=== PATIENT | female | born 1995 | race Two or more races ===

== ENCOUNTER 2020-10-26 12:58 | Emergency (ER) | payer OTHER, SELFPAY ==
[2020-10-26 14:01] VITALS: BP 159/112; PULSE 65; RESP 14; TEMP 36.8; O2SAT 99; BMI 45.2
--- NOTE | 2020-10-26 14:09 | ED_ITS ---
HPI - General Adult General Chief complaint: General Medical Stated complaint: lt arm & neck pain, numbness Time Seen by Provider: 10/26/20 13:44 Source: patient Mode of arrival: ambulatory Limitations: no limitations History of Present Illness HPI narrative: A 25-year-old female with reported history of ovarian CA she reports she was diagnosed with 9 years ago underwent chemotherapy subsequently had metastasis she was on hospice given that there was terminal diagnosis and it was elected to stop chemotherapy there was metastasis to the liver, question long and question lymph node she is being followed by Oncology at [facility]. She has been off chemotherapy for a year and a half she also has a history of asthma who presents today ambulatory with complaint of left-sided neck pain with sensation of lymph node swelling and pain radiation to the left arm. States she called her primary care doctor today being Wednesday she was advised to come to the emergency room. States she has had pain discomfort ongoing for the past 5 days and intermittently having radiation down the left arm. Again no fever or U RI symptoms. She does report that the lymph node swelling does cause her to have difficulty with swelling/pain. Onset (ago): day(s) (5 days ) Location: neck Related Data Previous Rx's Medication Instructions Recorded cyclobenzaprine 5 mg PO TID PRN #20 tab 10/26/20 doxycycline monohydrate 100 mg PO BID 10 Days #20 cap 10/26/20 ibuprofen 800 mg PO Q8H PRN #30 tab 10/26/20 Allergies Allergy/AdvReac Type Severity Reaction Status Date / Time latex [LATEX] Allergy Intermediate HIVES Unverified 07/11/20 16:39 vancomycin [VANCOMYCIN] Allergy Intermediate HIVES Unverified 07/11/20 16:39 Review of Systems Review of Systems: Constitutional: No Weight loss, No Fever, No Chills, No Night Sweats, No Fatigue, No Malaise ENT/Mouth: No Hearing loss, No Ear Pain, No Nasal Congestion, No Sinus Pain, No Hoarseness, No sore throat, No Rhinorrhea, No Swallowing Difficulty Eyes: No Eye Pain, No Swelling, No Redness, No Foreign Body, No Discharge, No Vision Changes Cardiovascular: No Chest Pain, No SOB, No Dyspnea on Exertion, No Orthopnea, No Edema, No Palpitations Respiratory: No Cough, No Sputum, No Wheezing, No Smoke Exposure, No Dyspnea Gastrointestinal: No Nausea, No Vomiting, No Diarrhea, No Constipation, No abdominal Pain, No Hematochezia, No Melena Genitourinary: no irregular bleeding, No Dysuria, No Urinary Frequency, No Hematuria, No Urinary Incontinence, No Urgency, No Flank Pain Musculoskeletal: No joint pain, No Myalgias, No Joint Swelling Skin: No Skin Lesions, No rash Neuro: No Weakness, No Numbness, No Loss of Consciousness, No Dizziness, No Headache Psych: No Social Issues Heme/Lymph: No Bruising, No Bleeding Endocrine: No Polyuria, No Polydipsia, No Temperature Intolerance [facility] Past Medical History Medical History Asthma Ovarian cancer Social History Social History Smoking Status: Never smoker Use of substances other than those prescribed or required for medical reasons: No Advance Directives: No Advance Directives Information Provided: No Physical Exam Vital Signs: Vital Signs: Last Vital Signs Temp 99.2 F 10/26/20 14:34 Pulse 60 10/26/20 14:34 Resp 16 10/26/20 14:34 BP 146/91 H 10/26/20 14:34 Pulse Ox 99 10/26/20 14:34 Body Mass Index 45.2 Reviewed Const: General: cooperative and healthy appearing; No acute distress or into xicated appearing Nutritional Appearance: average body habitus Orientation/consciousness: patient oriented x3 HENMT: Head: Yes normal to inspection Ears: hearing grossly normal bilaterally Eyes: General: appearance normal, both eyes and all related structures Visual Patel: normal visual patel by confrontation Neck: Other: Mildly large anterior cervical node on the left side [place] the size of a pea. Neck: Yes normal visual inspection, No positive Brudzinski's sign, No positive Kernig's sign and No tender Thyroid: Thyroid normal Chest: Chest palpation & inspection: normal inspection of the chest Resp: Effort & Inspection: normal respiratory effort Auscultation: clear to auscultation bilaterally Cardio: Jugular venous distension: no JVD Rhythm: regular rhythm Heart sounds: S1 normal heart sound present and S2 normal heart sound present GI: Inspection: Yes normal to inspection Percussion: Yes normal to percussion Auscultation: normal bowel sounds : General: Yes no CVA tenderness Back/Spine/Pelvis: Back: no CVA tenderness Skin: General skin exam: no rashes or lesions noted Neuro: General: patient oriented x3 Extrem: General: Yes normal to inspection Course Course Course Narrative: Somewhat poor historian will request records from [facility] regarding her CA history states diagnosed with terminal ovarian CA no longer on chemo clinically nontoxic appearing. Well developed for age. Will check labs and CT soft tissue of cervical spine and chest rule out infectious/metastasis. Reevaluation(s) Reevaluation #1: Labs overall stable CT findings as noted. Will give her short course doxycycline she does have appointment coming up with her oncology team on the . Copies of her workup and CT scan were provided to her to take her for follow-up. Medical Decision Making Lab Data Result diagrams: 10/26/20 15:33 10/26/20 15:33 Labs: Lab Results 10/26/20 10/26/20 10/26/20 Range/Units 15:33 15:33 15:33 WBC 6.4 (4.8-10.8) X10*3/uL RBC 4.74 (4.20-5.50) X10*6/uL Hgb 12.9 (12.0-16.0) g/dl Hct 40.1 (37-47) % MCV 84.6 (80-98) fL MCH 27.2 (27.0-33.0) pg MCHC 32.2 (31.0-35.0) g/dl RDW 13.1 (11.0-16.0) % Plt Count 371 (160-400) X10*3/uL MPV 9.3 L (9.4-12.3) fL Immature Gran % (Auto) 0.2 (0.0-0.4) % Neut % (Auto) 49.9 (45-73) % Lymph % (Auto) 38.5 (20-40) % [place] % (Auto) 7.4 (2-11) % Eos % (Auto) 3.8 (0-4) % Baso % (Auto) 0.2 (0-2) % Lymph # (Auto) 2.5 (1.2-4.9) X10*3/uL [place] # (Auto) 0.5 (0.1-1.2) X10*3/uL Eos # (Auto) 0.2 (0.0-0.4) X10*3/uL Baso # (Auto) 0.0 (0.0-0.2) X10*3/uL Abs Immat Gran (auto) 0.01 (0.00-0.03) X10*3/uL Absolute Neuts (auto) 3.2 (2.0-8.3) X10*3/uL Absolute Nucleated RBC 0.000 (0.0-0.012) X10*3/uL Nucleated RBC % (auto) 0.0 (0.0-0.2) /100WBC PT 12.2 (10.8-13.0) SEC INR 1.0 (0.9-1.1) APTT 36.5 (24.1-38.0) SEC Sodium 139 (135-145) mmol/L Potassium 4.4 (3.3-5.1) mmol/l Chloride 105 (96-108) mmol/L Carbon Dioxide 28 (22-29) mmol/L Anion Gap 10 L (12-20) BUN 13 (9-16) mg/dL Creatinine 0.62 (0.5-1.4) mg/dL Estim Creat Clear Calc 184.5 Estimated GFR > 60 Random Glucose 87 (60-115) mg/dL Calcium 8.9 (8.4-10.2) mg/dL Total Bilirubin 0.6 (0.0-1.0) mg/dL AST 14 (5-31) U/L ALT 11 (0-31) U/L Alkaline Phosphatase 50 (39-117) U/L Total Protein 6.7 (6.5-8.0) g/dL Albumin 4.0 (3.5-5.0) g/dL Urine Color Urine Appearance Urine pH (5.0-8.0) Ur Specific [place] (1.005-1.025) Urine Protein (NEG-TRACE) MG/DL Urine Glucose (UA) (NEG) MG/DL Urine Ketones (NEG) MG/DL Urine Blood (NEG) Urine Nitrite (NEG) Ur Leukocyte Esterase (NEG) Urine RBC (0) /HPF Urine WBC (0-4) /HPF Ur Squamous Epith Cells /LPF Urine Bacteria /LPF Urine Test (NEGATIVE) Coronavirus (PCR) (Negative) Influenza Type A (PCR) (Negative) Influenza Type B (PCR) (Negative) RSV RNA Qual (PCR) (Negative) 01/02/21 01/02/21 Range/Units 15:33 17:48 WBC (4.8-10.8) X10*3/uL RBC (4.20-5.50) X10*6/uL Hgb (12.0-16.0) g/dl Hct (37-47) % MCV (80-98) fL MCH (27.0-33.0) pg MCHC (31.0-35.0) g/dl RDW (11.0-16.0) % Plt Count (160-400) X10*3/uL MPV (9.4-12.3) fL Immature Gran % (Auto) (0.0-0.4) % Neut % (Auto) (45-73) % Lymph % (Auto) (20-40) % [place] % (Auto) (2-11) % Eos % (Auto) (0-4) % Baso % (Auto) (0-2) % Lymph # (Auto) (1.2-4.9) X10*3/uL [place] # (Auto) (0.1-1.2) X10*3/uL Eos # (Auto) (0.0-0.4) X10*3/uL Baso # (Auto) (0.0-0.2) X10*3/uL Abs Immat Gran (auto) (0.00-0.03) X10*3/uL Absolute Neuts (auto) (2.0-8.3) X10*3/uL Absolute Nucleated RBC (0.0-0.012) X10*3/uL Nucleated RBC % (auto) (0.0-0.2) /100WBC PT (10.8-13.0) SEC INR (0.9-1.1) APTT (24.1-38.0) SEC Sodium (135-145) mmol/L Potassium (3.3-5.1) mmol/l Chloride (96-108) mmol/L Carbon Dioxide (22-29) mmol/L Anion Gap (12-20) BUN (9-16) mg/dL Creatinine (0.5-1.4) mg/dL Estim Creat Clear Calc Estimated GFR Random Glucose (60-115) mg/dL Calcium (8.4-10.2) mg/dL Total Bilirubin (0.0-1.0) mg/dL AST (5-31) U/L ALT (0-31) U/L Alkaline Phosphatase (39-117) U/L Total Protein (6.5-8.0) g/dL Albumin (3.5-5.0) g/dL Urine Color YELLOW Urine Appearance CLEAR Urine pH 6.0 (5.0-8.0) Ur Specific [place] 1.025 (1.005-1.025) Urine Protein NEG (NEG-TRACE) MG/DL Urine Glucose (UA) NEG (NEG) MG/DL Urine Ketones NEG (NEG) MG/DL Urine Blood TRACE (NEG) Urine Nitrite NEG (NEG) Ur Leukocyte Esterase NEG (NEG) Urine RBC 0-2 (0) /HPF Urine WBC 0-2 (0-4) /HPF Ur Squamous Epith Cells TRACE /LPF Urine Bacteria NONE /LPF Urine Test NEGATIVE (NEGATIVE) Coronavirus (PCR) NEGATIVE (Negative) Influenza Type A (PCR) NEGATIVE (Negative) Influenza Type B (PCR) NEGATIVE (Negative) RSV RNA Qual (PCR) NEGATIVE (Negative) Discharge Plan Discharge Clinical Impression: Cervical lymphadenopathy, Abnormal finding on CT scan Patient Disposition: Home, Self-Care Instructions: Lymphadenopathy (ED) Additional Instructions: Take medication as prescribed Follow-up with your cancer team at [place] as planned/scheduled on the Return if any concerns or worsening symptoms I have given a copy of your CT scans results of your cervical spine/chest to take with you to your appointment Return if any concerns or worsening symptoms Thank you Prescriptions: New cyclobenzaprine 10 mg tablet 5 mg PO TID PRN (Reason: muscle spasm) Qty: 20 RF: 0 ibuprofen 800 mg tablet 800 mg PO Q8H PRN (Reason: pain) Qty: 30 RF: 0 doxycycline monohydrate 100 mg capsule 100 mg PO BID 10 Days Qty: 20 RF: 0 Referrals: Santiago Singletary PA-C [Primary Care Provider] - 1 week (Your oncology team in [place] on November 07) Interventions: ED Discharge Assessment Last Done: 10/26/20 18:00 Discharge Date/Time: 10/26/20 18:00 Print Language: Croatian
--- NOTE | 2020-10-26 14:15 | CT_ITS ---
EXAMINATION: CT SOFT TISSUE NECK WITH CONTRAST CT CHEST WITH CONTRAST CLINICAL INFORMATION: Stage IV ovarian cancer. Neck/lymph node swelling. Pain. COMPARISON: Chest radiograph dated 04/13/2017. TECHNIQUE: Contiguous axial CT images of the neck soft tissues as well as the chest were obtained following the administration of 80 mL Omnipaque 350 IV contrast. Sagittal and coronal reformats were provided and reviewed. This CT examination was performed using dose optimization techniques as appropriate, variously including the following: *Automated exposure control *Adjustment of mA and/or kV according to patient size (this includes techniques or standardized protocols for targeted exams where dose is matched to indication/reason for exam; i.e. extremities or head) *Use of iterative reconstruction technique DOSE: 1397 mGy-cm. FINDINGS: CT NECK: There are prominent bilateral cervical lymph nodes, the largest of which are level II/III lymph nodes measuring 1.9 x 1.2 cm on the right (see axial image 48/128) and level IV on the left measuring up to 2 x 1.5 cm (axial image 44/128). No additional soft tissue mass or fluid collection. The parotid glands are homogeneous in attenuation. The submandibular glands are normal. No contour abnormality or pathologic enhancement is seen within the oral cavity or pharyngeal mucosal space. The laryngeal structures are normal. The parapharyngeal fat is preserved. The carotid sheath vasculature opacify normally. No extramucosal soft tissue mass or fluid collection is seen. No retropharyngeal fluid collection is seen. The thyroid gland is normal. The superior mediastinum is unremarkable. The lung apices are clear. The mastoid air cells and visualized portions of the paranasal sinuses are well aerated. The temporomandibular joints are normal. No periapical disease is identified. No osseous abnormalities are seen. The imaged portions of the brain parenchyma are unremarkable. CT CHEST: [employer] Head: Unremarkable. Lungs: Focal reticulonodular density along the inferior aspect of the left major fissure measuring 0.6 cm. No additional pulmonary nodule, mass, or airspace consolidation. Pleura: No pleural effusion or pneumothorax. No pleural mass or thickening. Mediastinum: No cardiomegaly. No significant pericardial effusion. No thoracic aortic dilatation or dissection. No significant mediastinal or hilar lymphadenopathy. Soft tissue within the anterosuperior mediastinum, likely representing residual thymus. Chest Wall/Axilla: No lymphadenopathy. Thyroid: Unremarkable UPPER ABDOMEN: Within the posterior aspect of the right hepatic lobe there is a 3.3 x 5.3 cm predominantly fat density lesion with central areas of soft tissue density. 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 Differential diagnosis includes hepatocellular carcinoma and hepatic lipoma. OSSEOUS STRUCTURES: No lytic or blastic osseous lesion. CT/CT soft tissue neck w con IMPRESSION: CT NECK: 1. Prominent bilateral cervical lymph nodes. 2. No additional soft tissue mass or fluid collection. CT CHEST: 1. No significant pulmonary nodule, mass, or airspace consolidation. 2. No mediastinal, hilar, or axillary lymphadenopathy. 3. Predominantly fat-containing lesion within the posterior aspect of the right hepatic lobe measuring up to 5.3 cm. 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 Differential diagnosis includes hepatocellular carcinoma and hepatic lipoma.
[2020-10-26 14:34] VITALS: BP 146/91; PULSE 60; RESP 16; TEMP 37.3; O2SAT 99
[2020-10-26] MEDS: Cyclobenzaprine HCl 5 MG TABLET PO (14:50)
[2020-10-26] MEDS: Lidocaine 4 % Patch ADH..PATCH 1 PATCH TRANSDERMA (14:51)
[2020-10-26 15:43] LABS: Glucose Urine UA NEG (NEG); Leukocyte Esterase Urine NEG (NEG); MANUAL DIFF FLAG NO; Nitrite Urine NEG (NEG); Specific Gravity - Urine 1.025 (1.005-1.025); Urine Blood TRACE (NEG); Urine Ketones NEG (NEG); Urine Protein NEG (NEG-TRACE)
[2020-10-26 15:46] LABS: Basophils Percent Auto 0.2 % (0-2); Eosinophils Absolute Auto 0.2 X10*3/uL (0.0-0.4); Eosinophils Percent Auto 3.8 % (0-4); Hematocrit 40.1 % (37-47); Hemoglobin 12.9 g/dl (12.0-16.0); Imm Gran Abs Auto 0.01 X10*3/uL (0.00-0.03); Imm Gran Pct Auto 0.2 % (0.0-0.4); Lymphocytes Absolute Auto 2.5 X10*3/uL (1.2-4.9); Lymphocytes Percent Auto 38.5 % (20-40); Mean Corpuscular HGB Conc 32.2 g/dl (31.0-35.0); Mean Corpuscular Hemoglobin 27.2 pg (27.0-33.0); Mean Corpuscular Volume 84.6 fL (80-98); Mean Platelet Volume 9.3 fL (9.4-12.3); Monocytes Absolute Auto 0.5 X10*3/uL (0.1-1.2); Monocytes Percent Auto 7.4 % (2-11); Neutrophils Absolute Auto 3.2 X10*3/uL (2.0-8.3); Neutrophils Percent Auto 49.9 % (45-73); Platelet Count 371 X10*3/uL (160-400); Red Blood Count 4.74 X10*6/uL (4.20-5.50); Red Cell Distribution Width 13.1 % (11.0-16.0); White Blood Count 6.4 X10*3/uL (4.8-10.8)
[2020-10-26 15:47] LABS: Appearance Urine CLEAR; Color Urine YELLOW
[2020-10-26 15:55] LABS: Prothrombin Time 12.2 SEC (10.8-13.0)
[2020-10-26 15:57] LABS: Partial Thromboplastin Time 36.5 SEC (24.1-38.0); RBC Urine 0-2 /HPF (0); Squamous Epithelial Cell Urine TRACE /LPF; WBC Urine 0-2 /HPF (0-4)
[2020-10-26 16:04] LABS: Alanine Aminotransferase 11 U/L (0-31); Alkaline Phosphatase 50 U/L (39-117); Anion Gap 10 (12-20); Aspartate Amino Transferase 14 U/L (5-31); Bilirubin Total 0.6 mg/dL (0.0-1.0); Blood Urea Nitrogen 13 mg/dL (9-16); Calcium 8.9 mg/dL (8.4-10.2); Carbon Dioxide 28 mmol/L (22-29); Chloride 105 mmol/L (96-108); Creatinine Clr Calc Pharmacy 184.5; Estimated Glomerular Filt Rate > 60; Glucose Random 87 mg/dL (60-115); Potassium 4.4 mmol/l (3.3-5.1); Sodium 139 mmol/L (135-145); Total Protein 6.7 g/dL (6.5-8.0)
[2020-10-26] MEDS: iohexoL 350 MG/ML 100 ML INFUS..BTL IV (16:31)
--- NOTE | 2020-10-26 16:45 | PC.NURSE ---
CT and blood obtained- awaiting results at this time.
[2020-10-26] MEDS: 0.9 % Sodium Chloride 1,000 ML 999 ML IV (16:50)
[2020-10-26 17:07] LABS: UPreg QC Valid YES; Urine Pregnancy NEGATIVE (NEGATIVE)
[2020-10-26 18:46] LABS: Influenza A PCR NEGATIVE (Negative); Influenza B PCR NEGATIVE (Negative); Resp Syncy Virus RNA Qual PCR NEGATIVE (Negative); SARS COV2 PCR INHOUSE NEGATIVE (Negative)
== END 2020-10-26 18:00 | disposition home or self-care (01) ==
PROVIDERS: Nurse Practitioner Primary Care; Emergency Provider Emergency Medicine; PCP Physician Assistant
DX: L04.0 Acute lymphadenitis of face, head and neck (principal); Z20.828 Contact with and (suspected) exposure to other viral communicable diseases; Z85.43 Personal history of malignant neoplasm of ovary; R93.7 Abnormal findings on diagnostic imaging of other parts of musculoskeletal system; R91.8 Other nonspecific abnormal finding of lung field
CPT/HCPCS: 0241U; 36415; 70491; 71260; 80053; 81001; 81025; 85025; 85610; 85730; 96360; 99284; Q9967

== ENCOUNTER 2021-01-16 08:15 | Outpatient (RCR) | payer OTHER, SELFPAY ==
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
--- NOTE | 2021-01-06 13:18 | HO.PS.ADMBH ---
HPI Chief Complaint: depression Sources of Information: patient interviewed, chart reviewed and crisis/core team assessment reviewed HPI Narrative: Pt is a 25 year old woman with hx of Bipolar type 2 who was referred to PHP by her OP psychotherapist due to increase symptoms of depression, anxiety, anhedonia and passive suicidal ideation. She reports having nightmares at night. She also reports being easily triggered when outside of her house. She reports isolating more in past month. She denies hx of VH/AH. Past Psychiatric History: Inpt: none OP: [facility] Past medication trials: concerta, lorazepam, trazodone, sertraline, clonidine, seroquel Suicide attempts: none Medical Evaluation Reviewed: Yes [facility] Medical History (Updated 01/21/21 @ 00:00 by Tasha Borrero) Abdominal tumor Asthma Liver cancer Ovarian cancer TIA (transient ischemic attack) Surgical History (Updated 01/06/21 @ 12:14 by Fanta Montanez RN) Hx of removal of ovary Meds/Allergies Allergies Allergies Allergy/AdvReac Type Severity Reaction Status Date / Time latex [LATEX] Allergy Intermediate HIVES Unverified 07/11/20 16:39 vancomycin [VANCOMYCIN] Allergy Intermediate HIVES Unverified 07/11/20 16:39 shrimp Allergy Anaphylaxis Verified 01/06/21 12:16 Mental Status Exam Mental Status Exam Narrative: Appearance: casually groomed, fair hygiene, in NAD Behavior: calm, cooperative Psychomotor: no agitation or retardation noted Speech: clear, normal rate/rhythm/volume, spontaneous TP: linear TC: no signs of psychosis, feeling anxious/depressed Mood: anxious Affect:congruent, blunted, non labile SI:denies HI:denies AH/VH:denies Delusions:none Insight/judgment:fair x2. Memory/cog: alert, oriented x 3. grossly intact to conversational testing. Assessment & Plan Assessment & Plan (1) Bipolar 2 disorder: Status: Acute Code(s): F31.81 - Bipolar II disorder Assessment and Plan: 1. we discussed starting venlafaxine er 37.5mg po daily. Certification I certify that partial hospital treatment is medically necessary due to the symptoms and problems resulting from the patient's mental illness and the failure to treat the patient at the partial hospital level of care would likely result in the patient requiring inpatient psychiatric care which could not be prevented at a less intensive level of care. Telehealth Telehealth Location of provider rendering services: practice address Location of patient: address on file Patient Identification confirmed using: Name, : Yes Telehealth method: video Patient verbally consented to treatment: Yes Patient verbally consented to billing insurance company: Yes Patient informed of any privacy concerns related to visit: Yes Time spent with patient (mins): 30
--- NOTE | 2021-01-08 09:31 | PC.NURSE ---
Pt called out sick. She said she also has a medical apt tomorrow, and will not be in.
--- NOTE | 2021-01-10 11:20 | PC.NURSE ---
Pt left after the first group, stating she doesn't feel well. She said she is safe and feels emotionally better after surprising herself and processing issues in groups. She said she will return to program on Wednesday.
--- NOTE | 2021-01-16 14:34 | PC.NURSE ---
I called and LM for pt. I asked her to pls call and informed her that we would be starting her at [facility] LOC 01/20/21.
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
--- NOTE | 2021-01-20 14:18 | PC.NURSE ---
Pt called out sick. She left a message stating she'd been in the ED with bronchitis and a viral infection. I called and spoke to her. She agreed to discharge from [facility] at this time, as she needs to take care of her physical health. She said she will talk to her therapist about getting in to see the med provider at [place] or will see her PCP to prescribe the medication we started her on. I let her know that I can put in a referral for [facility], but that she'd have to see a therapist there, and she declined this option. I also told pt that she can call us if she feels the need to return to [facility] when she starts feeling better physically. She thanked staff and was pleasant and agreeable.
--- NOTE | 2021-01-20 14:53 | PC.NURSE ---
I called and LM for pt's therapist at [facility] in [place], [place] ([phone]) informing him of pt's discharge from [facility] and her need for medication management from [place]. I let him know that pt can return to [facility] when feeling able.
== END 2021-01-16 23:55 | disposition home or self-care (01) ==
LOC: HO.PHPA 08:15
PROVIDERS: Visit Provider Psychiatry & Neurology Psychiatry
DX: F31.81 Bipolar II disorder (principal)
CPT/HCPCS: 90791; 90853; 99212

== ENCOUNTER 2021-01-19 18:28 | Emergency (ER) | payer OTHER, SELFPAY ==
--- NOTE | ~2021-01-19 | XR_ITS ---
EXAMINATION: XR CHEST CLINICAL INFORMATION: Fever and cough COMPARISON: 04/13/2017 TECHNIQUE: Frontal view of the chest was obtained. FINDINGS: Low lung volumes but no focal consolidation or mass. Normal pulmonary vascularity. No pleural effusion or pneumothorax. Normal heart size. Regional skeleton intact. XR/XR chest 1V IMPRESSION: Low lung volumes with bronchovascular crowding but no acute pulmonary disease.
[2021-01-19 18:31] VITALS: BP 169/76; PULSE 97; RESP 20; TEMP 37.9; O2SAT 100; BMI 45.4
[2021-01-19] MEDS: 0.9 % Sodium Chloride 1,000 ML 999 ML IV (19:59)
[2021-01-19] MEDS: Acetaminophen 325 MG TABLET 650 MG PO (19:59)
[2021-01-19 20:00] LABS: MANUAL DIFF FLAG NO
[2021-01-19 20:01] LABS: Glucose Urine UA NEG (NEG); Leukocyte Esterase Urine NEG (NEG); Nitrite Urine NEG (NEG); Urine Blood NEG (NEG); Urine Ketones NEG (NEG); Urine Protein NEG (NEG-TRACE)
[2021-01-19 20:02] VITALS: BP 136/67; PULSE 89; RESP 18; TEMP 38; O2SAT 99
[2021-01-19 20:05] LABS: Appearance Urine CLEAR; Color Urine YELLOW
[2021-01-19 20:06] LABS: UPreg QC Valid YES; Urine Pregnancy NEGATIVE (NEGATIVE)
[2021-01-19 20:13] LABS: Basophils Percent Auto 0.2 % (0-2); Eosinophils Percent Auto 0.2 % (0-4); Hematocrit 36.5 % (37-47); Hemoglobin 11.8 g/dl (12.0-16.0); Imm Gran Abs Auto 0.02 X10*3/uL (0.00-0.03); Imm Gran Pct Auto 0.2 % (0.0-0.4); Lymphocytes Absolute Auto 0.9 X10*3/uL (1.2-4.9); Lymphocytes Percent Auto 10.6 % (20-40); Mean Corpuscular HGB Conc 32.3 g/dl (31.0-35.0); Mean Corpuscular Hemoglobin 26.9 pg (27.0-33.0); Mean Corpuscular Volume 83.3 fL (80-98); Mean Platelet Volume 9.5 fL (9.4-12.3); Monocytes Absolute Auto 0.7 X10*3/uL (0.1-1.2); Monocytes Percent Auto 7.9 % (2-11); Neutrophils Absolute Auto 6.9 X10*3/uL (2.0-8.3); Neutrophils Percent Auto 80.9 % (45-73); Platelet Count 306 X10*3/uL (160-400); Red Blood Count 4.38 X10*6/uL (4.20-5.50); Red Cell Distribution Width 13.2 % (11.0-16.0); White Blood Count 8.6 X10*3/uL (4.8-10.8)
[2021-01-19 20:19] LABS: INTERNATIONAL NORM RATIO 1.1 (0.9-1.1); Prothrombin Time 13.2 SEC (10.8-13.0)
[2021-01-19 20:22] LABS: Alanine Aminotransferase 13 U/L (0-31); Albumin Level 3.8 g/dL (3.5-5.0); Alkaline Phosphatase 54 U/L (39-117); Anion Gap 15 (12-20); Aspartate Amino Transferase 16 U/L (5-31); Bilirubin Direct 0.3 mg/dL (0.0-0.5); Bilirubin Total 0.8 mg/dL (0.0-1.0); Blood Urea Nitrogen 10 mg/dL (9-16); Calcium 8.3 mg/dL (8.4-10.2); Carbon Dioxide 20 mmol/L (22-29); Chloride 104 mmol/L (96-108); Estimated Glomerular Filt Rate > 60; Glucose Random 98 mg/dL (60-115); Lactate Dehydrogenase 207 U/L (122-220); Potassium 4.1 mmol/L (3.3-5.1); Sodium 135 mmol/L (135-145); Total Protein 6.5 g/dL (6.5-8.0)
[2021-01-19 20:24] LABS: Partial Thromboplastin Time 38.6 SEC (24.1-38.0)
[2021-01-19 20:41] LABS: Ferritin 25 ng/mL (10-122); Influenza A PCR NEGATIVE (Negative); Influenza B PCR NEGATIVE (Negative); Resp Syncy Virus RNA Qual PCR NEGATIVE (Negative); SARS COV2 PCR INHOUSE NEGATIVE (Negative)
[2021-01-19 20:45] LABS: Procalcitonin 0.04 ng/mL
--- NOTE | 2021-01-19 20:51 | ED_ITS ---
HPI - Fever General Chief Complaint: Fever Stated Complaint: high fever Time Seen by Provider: 01/19/21 18:56 Source: patient Mode of arrival: ambulatory Limitations: no limitations History of Present Illness HPI Narrative: Patient presents to ED with fever, cough, body aches, chest tightness, ear pain, and sore throat. Patient denies any abdominal pain, dysuria, hematuria, or coughing up blood. States she has history of asthma. Patient states she was vaccinated for COVID in october Related Data Home Medications Medication Instructions Recorded Confirmed albuterol sulfate 2 puff INHALATION Q4H PRN 01/06/21 01/06/21 Previous Rx's Medication Instructions Recorded lamotrigine See Rx Instructions .ROUTE 01/16/21 .COMPLEX 14 Days #21 tab benzonatate [Tessalon Perles] 100 mg PO TID PRN #15 cap 01/19/21 prednisone 40 mg PO DAILY #10 tab 01/19/21 Allergies Allergy/AdvReac Type Severity Reaction Status Date / Time latex [LATEX] Allergy Intermediate HIVES Unverified 07/11/20 16:39 vancomycin [VANCOMYCIN] Allergy Intermediate HIVES Unverified 07/11/20 16:39 shrimp Allergy Anaphylaxis Verified 01/06/21 12:16 Review of Systems Review of Systems: Yes all other systems are reviewed and are negative Constitutional: Constitutional: Reports as per HPI, Reports no additional constitutional complaints, Reports body ache(s), Reports chills and Reports fever(s) Eyes: Eyes: Reports as per HPI and Reports no additional eye complaints ENT: Reports system reviewed and no additional complaints, except as documented and Reports as per HPI Cardiovascular: Cardiovascular: Reports as per HPI and Reports no additional cardiovascular complaints Comments: Chest tightness Respiratory: Respiratory: Reports as per HPI, Reports no additional respiratory complaints, Reports chest congestion and Reports cough Gastrointestinal: Gastrointestinal: Reports as per HPI and Reports no additional gastrointestinal complaints Genitourinary: Genitourinary: Reports no additional female genitourinary complaints and Reports as per HPI Musculoskeletal: Musculoskeletal: Reports no additional musculoskeletal complaints and Reports as per HPI Neurologic: Reports system reviewed and no additional complaints, except as documented and Reports as per HPI Psychiatric: Psychiatric: Reports no additional psychiatric complaints and Reports as per HPI PENDING SALE TO [facility] Past Medical History Medical History (Updated 01/19/21 @ 23:20 by LOWELL Quinones) Abdominal tumor Asthma Liver cancer Ovarian cancer TIA (transient ischemic attack) Surgical History (Updated 01/06/21 @ 12:14 by Fnata Montanez RN) Hx of removal of ovary Social History Social History Household Members: Family Alcohol intake: never Smoking Status: Unknown if ever smoked Smoked in Last 30 Days: No Use of substances other than those prescribed or required for medical reasons: No Advance Directives: No Advance Directives Information Provided: Yes Physical Exam Vital Signs: Vital Signs: Last Vital Signs Temp 99.6 F 01/19/21 21:55 Pulse 99 01/19/21 21:55 Resp 16 01/19/21 21:55 BP 123/57 L 01/19/21 21:55 Pulse Ox 99 01/19/21 21:55 Body Mass Index 45.4 Const: General: cooperative, healthy appearing and comfortable Orientation/ consciousness: patient oriented x3 HENMT: Head: Yes normal to inspection, Yes No palpable skull fracture present, Yes normocephalic, Yes atraumatic and No abrasion Ears: hearing grossly n ormal bilaterally, external ears normal and TM's normal bilaterally Throat: Yes posterior oropharynx normal, Yes tonsils normal and Yes uvula midline Eyes: General: appearance normal, both eyes and all related structures Neck: Neck: Yes normal visual inspection, Yes full ROM, Yes no lymphadenopathy, Yes no meningeal signs, Yes trachea midline, Yes supple and No tender Chest: Chest palpation & inspection: normal inspection of the chest and normal palpation of entire chest wall Resp: Effort & Inspection: normal respiratory effort and able to speak in complete sentences Auscultation: wheezes (Mild) expiratory wheezes Cardio: Jugular venous distension: no JVD Heart sounds: S1 normal heart sound present and S2 normal heart sound present GI: Inspection: Yes normal to inspection and No abdominal wall ecchymosis Palpation (GI): Soft to palpation, not firm, nontender, no guarding and not rigid : General: No CVA tenderness and Yes no CVA tenderness Back/Spine/Pelvis: Back: no CVA tenderness, No CVA tenderness and No back tenderness Skin: General skin exam: no rashes or lesions noted and elasticity normal Neuro: General: patient oriented x3 and no meningeal signs Cranial nerves: Yes CN's II-XII intact bilaterally Extrem: General: Yes normal to inspection and Yes full ROM Psych: Appearance: grossly normal, well kempt and not disheveled Course Course Course Narrative: History physical exam indicate viral syndrome. Patient will have chest x-ray, COVID swab, lab work, and fluid. Patient was sent for UA Reevaluation(s) Reevaluation #1: Patient labs are normal. Chest x-ray negative for pneumonia. Negative COVID swab. UA negative for UTI, rapid strep came back negative. History physical exam indicate viral syndrome/bronchitis. Patient be discharged with albuterol and prednisone. MDM - Fever MDM Narrative Medical decision making narrative: Bronchitis. Viral syndrome Lab Data Result diagrams: 01/19/21 19:56 01/19/21 19:51 Labs: Lab Results 01/19/21 01/19/21 01/19/21 Range/Units 19:51 19:51 19:51 WBC (4.8-10.8) X10*3/uL RBC (4.20-5.50) X10*6/uL Hgb (12.0-16.0) g/dl Hct (37-47) % MCV (80-98) fL MCH (27.0-33.0) pg MCHC (31.0-35.0) g/dl RDW (11.0-16.0) % Plt Count (160-400) X10*3/uL MPV (9.4-12.3) fL Immature Gran % (Auto) (0.0-0.4) % Neut % (Auto) (45-73) % Lymph % (Auto) (20-40) % [place] % (Auto) (2-11) % Eos % (Auto) (0-4) % Baso % (Auto) (0-2) % Lymph # (Auto) (1.2-4.9) X10*3/uL [place] # (Auto) (0.1-1.2) X10*3/uL Eos # (Auto) (0.0-0.4) X10*3/uL Baso # (Auto) (0.0-0.2) X10*3/uL Abs Immat Gran (auto) (0.00-0.03) X10*3/uL Absolute Neuts (auto) (2.0-8.3) X10*3/uL Absolute Nucleated RBC (0.0-0.012) X10*3/uL Nucleated RBC % (auto) (0.0-0.2) /100WBC PT (10.8-13.0) SEC INR (0.9-1.1) APTT (24.1-38.0) SEC Sodium 135 (135-145) mmol/L Potassium 4.1 (3.3-5.1) mmol/L Chloride 104 (96-108) mmol/L Carbon Dioxide 20 L (22-29) mmol/L Anion Gap 15 (12-20) BUN 10 (9-16) mg/dL Creatinine 0.73 (0.5-1.4) mg/dL Estim Creat Clear Calc 157.0 Estimated GFR > 60 Random Glucose 98 (60-115) mg/dL Calcium 8.3 L D (8.4-10.2) mg/dL Ferritin 25 (10-122) ng/mL Total Bilirubin 0.8 (0.0-1.0) mg/dL Direct Bilirubin 0.3 (0.0-0.5) mg/dL AST 16 (5-31) U/L ALT 13 (0-31) U/L Alkaline Phosphatase 54 (39-117) U/L Lactate Dehydrogenase 207 (122-220) U/L Total Protein 6.5 (6.5-8.0) g/dL Albumin 3.8 (3.5-5.0) g/dL Procalcitonin 0.04 ng/mL Urine Color Urine Appearance Urine pH (5.0-8.0) Ur Specific [place] (1.005-1.025) Urine Protein (NEG-TRACE) MG/DL Urine Glucose (UA) (NEG) MG/DL Urine Ketones (NEG) MG/DL Urine Blood (NEG) Urine Nitrite (NEG) Ur Leukocyte Esterase (NEG) Urine Test (NEGATIVE) Coronavirus (PCR) NEGATIVE (Negative) Influenza Type A (PCR) NEGATIVE (Negative) Influenza Type B (PCR) NEGATIVE (Negative) RSV RNA Qual (PCR) NEGATIVE (Negative) 01/19/21 01/19/21 01/19/21 Range/Units 19:51 19:51 19:56 WBC 8.6 (4.8-10.8) X10*3/uL RBC 4.38 (4.20-5.50) X10*6/uL Hgb 11.8 L (12.0-16.0) g/dl Hct 36.5 L (37-47) % MCV 83.3 (80-98) fL MCH 26.9 L (27.0-33.0) pg MCHC 32.3 (31.0-35.0) g/dl RDW 13.2 (11.0-16.0) % Plt Count 306 (160-400) X10*3/uL MPV 9.5 (9.4-12.3) fL Immature Gran % (Auto) 0.2 (0.0-0.4) % Neut % (Auto) 80.9 H (45-73) % Lymph % (Auto) 10.6 L (20-40) % Elmore % (Auto) 7.9 (2-11) % Eos % (Auto) 0.2 (0-4) % Baso % (Auto) 0.2 (0-2) % Lymph # (Auto) 0.9 L (1.2-4.9) X10*3/uL [place] # (Auto) 0.7 (0.1-1.2) X10*3/uL Eos # (Auto) 0.0 (0.0-0.4) X10*3/uL Baso # (Auto) 0.0 (0.0-0.2) X10*3/uL Abs Immat Gran (auto) 0.02 (0.00-0.03) X10*3/uL Absolute Neuts (auto) 6.9 (2.0-8.3) X10*3/uL Absolute Nucleated RBC 0.000 (0.0-0.012) X10*3/uL Nucleated RBC % (auto) 0.0 (0.0-0.2) /100WBC PT (10.8-13.0) SEC INR (0.9-1.1) APTT (24.1-38.0) SEC Sodium (135-145) mmol/L Potassium (3.3-5.1) mmol/L Chloride (96-108) mmol/L Carbon Dioxide (22-29) mmol/L Anion Gap (12-20) BUN (9-16) mg/dL Creatinine (0.5-1.4) mg/dL Estim Creat Clear Calc Estimated GFR Random Glucose (60-115) mg/dL Calcium (8.4-10.2) mg/dL Ferritin (10-122) ng/mL Total Bilirubin (0.0-1.0) mg/dL Direct Bilirubin (0.0-0.5) mg/dL AST (5-31) U/L ALT (0-31) U/L Alkaline Phosphatase (39-117) U/L Lactate Dehydrogenase (122-220) U/L Total Protein (6.5-8.0) g/dL Albumin (3.5-5.0) g/dL Procalcitonin ng/mL Urine Color YELLOW Urine Appearance CLEAR Urine pH 7.0 (5.0-8.0) Ur Specific [place] 1.020 (1.005-1.025) Urine Protein NEG (NEG-TRACE) MG/DL Urine Glucose (UA) NEG (NEG) MG/DL Urine Ketones NEG (NEG) MG/DL Urine Blood NEG (NEG) Urine Nitrite NEG (NEG) Ur Leukocyte Esterase NEG (NEG) Urine Test NEGATIVE (NEGATIVE) Coronavirus (PCR) (Negative) Influenza Type A (PCR) (Negative) Influenza Type B (PCR) (Negative) RSV RNA Qual (PCR) (Negative) 01/19/21 Range/Units 19:56 WBC (4.8-10.8) X10*3/uL RBC (4.20-5.50) X10*6/uL Hgb (12.0-16.0) g/dl Hct (37-47) % MCV (80-98) fL MCH (27.0-33.0) pg MCHC (31.0-35.0) g/dl RDW (11.0-16.0) % Plt Count (160-400) X10*3/uL MPV (9.4-12.3) fL Immature Gran % (Auto) (0.0-0.4) % Neut % (Auto) (45-73) % Lymph % (Auto) (20-40) % [place]more % (Auto) (2-11) % Eos % (Auto) (0-4) % Baso % (Auto) (0-2) % Lymph # (Auto) (1.2-4.9) X10*3/uL [place] # (Auto) (0.1-1.2) X10*3/uL Eos # (Auto) (0.0-0.4) X10*3/uL Baso # (Auto) (0.0-0.2) X10*3/uL Abs Immat Gran (auto) (0.00-0.03) X10*3/uL Absolute Neuts (auto) (2.0-8.3) X10*3/uL Absolute Nucleated RBC (0.0-0.012) X10*3/uL Nucleated RBC % (auto) (0.0-0.2) /100WBC PT 13.2 H (10.8-13.0) SEC INR 1.1 (0.9-1.1) APTT 38.6 H (24.1-38.0) SEC Sodium (135-145) mmol/L Potassium (3.3-5.1) mmol/L Chloride (96-108) mmol/L Carbon Dioxide (22-29) mmol/L Anion Gap (12-20) BUN (9-16) mg/dL Creatinine (0.5-1.4) mg/dL Estim Creat Clear Calc Estimated GFR Random Glucose (60-115) mg/dL Calcium (8.4-10.2) mg/dL Ferritin (10-122) ng/mL Total Bilirubin (0.0-1.0) mg/dL Direct Bilirubin (0.0-0.5) mg/dL AST (5-31) U/L ALT (0-31) U/L Alkaline Phosphatase (39-117) U/L Lactate Dehydrogenase (122-220) U/L Total Protein (6.5-8.0) g/dL Albumin (3.5-5.0) g/dL Procalcitonin ng/mL Urine Color Urine Appearance Urine pH (5.0-8.0) Ur Specific [place] (1.005-1.025) Urine Protein (NEG-TRACE) MG/DL Urine Glucose (UA) (NEG) MG/DL Urine Ketones (NEG) MG/DL Urine Blood (NEG) Urine Nitrite (NEG) Ur Leukocyte Esterase (NEG) Urine Test (NEGATIVE) Coronavirus (PCR) (Negative) Influenza Type A (PCR) (Negative) Influenza Type B (PCR) (Negative) RSV RNA Qual (PCR) (Negative) Discharge Plan Discharge Clinical Impression: Bronchitis, Acute viral syndrome Patient Disposition: Home, Self-Care Instructions: Acute Bronchitis (ED), Viral Syndrome (ED) Additional Instructions: Return to the ED immediately for chest pain, shortness of breath, coughing up blood, swelling of lower extremity, calf pain, intractable fever, chills, weakness, or any other concerning symptoms. Continue using albuterol inhaler given to you in the ED as instructed by nurse Prescriptions: New prednisone 20 mg tablet 40 mg PO DAILY Qty: 10 RF: 0 benzonatate [Tessalon Perles] 100 mg capsule 100 mg PO TID PRN (Reason: cough) Qty: 15 RF: 0 No Action albuterol sulfate 90 mcg/actuation Hfa Aerosol Inhaler 2 puff INHALATION Q4H PRN (Reason: Shortness Of Breath) RF: 0 lamotrigine 25 mg tablet See Rx Instructions .ROUTE .COMPLEX 14 Days Qty: 21 RF: 0 Referrals: Libby Galicia DO [Primary Care Provider] - 2 days (Bronchitis) Stand Alone Forms: Work/School Release Interventions: ED Discharge Assessment Last Done: 01/19/21 23:49 Discharge Date/Time: 01/19/21 23:57 Print Language: Gambian
[2021-01-19 21:01] VITALS: TEMP 37.4
[2021-01-19] MEDS: predniSONE 20 MG TABLET 40 MG PO (21:21)
--- NOTE | 2021-01-19 21:22 | PC.NURSE ---
pt medicated per order, RT will be down to administer albuterol
[2021-01-19] MEDS: Albuterol Sulfate 90 MCG 8 GM INHALER 4 PUFF INHALE (21:29)
[2021-01-19 21:31] VITALS: PULSE 105; O2SAT 100
[2021-01-19 21:55] VITALS: BP 123/57; PULSE 99; RESP 16; TEMP 37.6; O2SAT 99
== END 2021-01-19 23:57 | disposition home or self-care (01) ==
PROVIDERS: Physician Assistant; Emergency Provider Student in an Organized Health Care Education/Training Program; PCP Internal Medicine
DX: J20.8 Acute bronchitis due to other specified organisms (principal); B34.9 Viral infection, unspecified; R50.9 Fever, unspecified; M79.10 Myalgia, unspecified site; Z79.899 Other long term (current) drug therapy; Z20.822 Contact with and (suspected) exposure to COVID-19
CPT/HCPCS: 0241U; 36415; 71045; 80053; 80076; 81003; 81025; 82248; 82728; 83615; 84145; 85025; 85610; 85730; 87071; 87880; 94640; 96360; 99284

== ENCOUNTER 2022-11-18 14:18 | Emergency (ER) | payer OTHER, SELFPAY ==
--- NOTE | ~2022-11-18 | XR_ITS ---
EXAMINATION: XR CHEST CLINICAL INFORMATION: Chest pain COMPARISON: 01/19/2021 TECHNIQUE: 2 views of the chest were obtained. FINDINGS: The lungs are well expanded. There is no focal consolidation, edema, or effusion. No pneumothorax. The cardiomediastinal silhouette is within normal limits. No acute osseous abnormality. XR/XR chest 2V IMPRESSION: Clear lungs.
--- NOTE | 2022-11-18 14:23 | ECG_ITS ---
Test Reason : CP Blood Pressure : / mmHG Vent. Rate : 069 BPM Atrial Rate : 069 BPM P-R Int : 154 ms QRS Dur : 086 ms QT Int : 382 ms P-R-T Axes : 013 039 007 degrees QTc Int : 409 ms Normal sinus rhythm with sinus arrhythmia Normal ECG No previous ECGs available Referred By: Ivette Sousa Electronically Signed By:SONIA FERNANDEZ
[2022-11-18 14:37] VITALS: BP 157/98; PULSE 77; RESP 16; TEMP 36.9; O2SAT 99; BMI 49.4
--- NOTE | 2022-11-18 14:37 | ED.CHESTPAIN ---
HPI - Chest Pain General Chief Complaint: General Medical <LOWELL Bro - Last Filed: 11/18/22 14:43> Stated Complaint: HBP/Chest pressure/Nausea <LOWELL Bro - Last Filed: 11/18/22 14:43> Time Seen by Provider: 11/18/22 14:43 <LOWELL Bro - Last Filed: 11/18/22 14:43> Source: patient <Anjali Donovan NP - Last Filed: 11/18/22 17:07> Mode of arrival: ambulatory <Anjali Donovan NP - Last Filed: 11/18/22 17:07> Limitations: no limitations <Anjali Donovan NP - Last Filed: 11/18/22 17:07> History of Present Illness HPI narrative: 27-year-old female with a complex past medical history including ovarian and liver cancers, on palliative care, presents emergency department today with complaints intermittent dizziness, chest pressure, nausea, weakness, and high blood pressure x 2 months. She reports yesterday she had to sit in a showerchair to bathe due to weakness and exhaustion. She reports she was recently seen by her quality assurance lead who recommended she present to the emergency department for her hypertension for medication. Pt denies any recent illness, sick contacts, paresthesias, weakness, fever, chills, nausea, vomiting, diarrhea, constipation, headache, or vision changes. <Anjali Donovan NP - Last Filed: 11/18/22 17:07> MD complaint: other (Chest pressure) <Anjali Donovan NP - Last Filed: 11/18/22 17:07> Onset (ago): month(s) (2) <Anjali Donovan NP - Last Filed: 11/18/22 17:07> Timing of current episode: episodic <Anjali Donovan NP - Last Filed: 11/18/22 17:07> Prior episodes: Yes <Anjali Donovan NP - Last Filed: 11/18/22 17:07> Pain location: left chest <Anjali Donovan NP - Last Filed: 11/18/22 17:07> Severity: mild <Anjali Donovan NP - Last Filed: 11/18/22 17:07> Pain scale (0-10): 4 <Anjali Donovan NP - Last Filed: 11/18/22 17:07> Quality: aching <Anjali Donovan NP - Last Filed: 11/18/22 17:07> Relieving factors: nothing <Anjali Donovan NP - Last Filed: 11/18/22 17:07> Treatment prior to arrival: none <Anjali Donovan NP - Last Filed: 11/18/22 17:07> Risk Factors Coronary artery disease risk factors: none <Anjali Donovan NP - Last Filed: 11/18/22 17:07> Thoracic aortic dissection risk factors: none <Anjali Donovan NP - Last Filed: 11/18/22 17:07> Related Data On Oral Contraceptives: No <Anjali Donovan NP - Last Filed: 11/18/22 17:07> Home Medications: Home Medications Medication Instructions Recorded Confirmed albuterol sulfate 90 mcg/actuation 2 puff inhalation Q4H PRN 01/06/21 01/06/21 aerosol inhaler Shortness Of Breath Previous Rx's Medication Instructions Recorded lamotrigine 25 mg tablet See Rx Instructions .Route 01/16/21 .COMPLEX 14 days #21 tabs benzonatate 100 mg capsule 100 mg PO TID PRN cough #15 caps 01/19/21 (Servando Bryant) prednisone 20 mg tablet 40 mg PO DAILY #10 tabs 01/19/21 <LOWELL Bro - Last Filed: 11/18/22 14:43> Allergies/Adverse Reactions: Allergies Allergy/AdvReac Type Severity Reaction Status Date / Time latex [LATEX] Allergy Intermediate HIVES Unverified 07/11/20 16:39 vancomycin [VANCOMYCIN] Allergy Intermediate HIVES Unverified 07/11/20 16:39 shrimp Allergy Anaphylaxis Verified 01/06/21 12:16 <LOWELL Bro - Last Filed: 11/18/22 14:43> Review of Systems Review of Systems: In addition to documented HPI above, the additional ROS was obtained: CONSTITUTIONAL: Denies fever, chills, weakness, fatigue, headache, night sweats, or weight loss EYES: Denies vision changes, eye pain, swelling, redness, foreign body, discharge ENT: Hearing normal. Denies sore throat, swallowing difficulty, throat tightness, hoarse voice, congestion, or ear pain CV: Denies chest pain or epigastric pain. No edema, palpitations, or dyspnea on exertion RESP: Denies shortness of breath. Denies cough, wheezing, dyspnea. Denies smoke exposure GI: Denies abdominal pain. Denies nausea, vomiting, constipation or diarrhea. No hematemesis, melena, or hematochezia. : Denies irregular bleeding or vaginal discharge. Denies dysuria, urinary frequency, urinary incontinence/retention, urgency. Denies flank pain or hematuria MSK: Denies recent trauma, change in gait, myalgias, joint swelling or pain SKIN: Denies no lesions, rashes, or sores NEURO: Denies new numbness, tingling, dizziness, paresthesias or weakness. No loss of consciousness. Denies headache ENDOCRINE: Denies unexpected weight loss. Denies polyuria, polydipsia. No temperature intolerance HEME/ONC: Denies bleeding disorders, easy bruising, or lymphadenopathy PSYCH: Denies anxiety/panic, depression, SI/HI, or social issues. <Anjali Donovan NP - Last Filed: 11/18/22 17:07> Yes all other systems are reviewed and are negative <Anjali Donovan NP - Last Filed: 11/18/22 17:07> [facility] Past Medical History Medical History: Medical History (Updated 11/18/22 @ 17:02 by Anjali Donovan NP) Abdominal tumor Asthma Liver cancer Ovarian cancer TIA (transient ischemic attack) <LOWELL Bro - Last Filed: 11/18/22 14:43> Surgical History: Surgical History (Updated 01/06/21 @ 12:14 by Fanta Montanez RN) Hx of removal of ovary <LOWELL Bro - Last Filed: 11/18/22 14:43> Social History Social History: Social History Household Members: Family Alcohol intake: unknown Smoked in Last 30 Days: No Advance Directives: No Advance Directives Information Provided: No Patient : No <LOWELL Bro - Last Filed: 11/18/22 14:43> Physical Exam Vital Signs: Vital Signs: Last Vital Signs Temp 98.4 F 11/18/22 14:37 Pulse 77 11/18/22 14:37 Resp 16 11/18/22 14:37 BP 157/98 H 11/18/22 14:37 Pulse Ox 99 11/18/22 14:37 O2 Del Method 11/18/22 14:37 BMI result Body Mass Index 49.4 <LOWELL Bro - Last Filed: 11/18/22 14:43> Vital Signs: Last Vital Signs Temp 98.4 F 11/18/22 14:37 Pulse 77 11/18/22 14:37 Resp 16 11/18/22 14:37 BP 157/98 H 11/18/22 14:37 Pulse Ox 99 11/18/22 14:37 O2 Del Method 11/18/22 14:37 BMI result Body Mass Index 49.4 <Anjali Donovan NP - Last Filed: 11/18/22 17:07> Nursing notes and vital signs reviewed. GENERAL APPEARANCE: A&0 x 4, generally well appearing, no acute distress HENMT: Normal to inspection, atraumatic, face symmetrical. Normal external ears, nose, and oropharynx clear. EYE: PERRLA, EOM intact, structures appear normal NECK: Supple without lymphadenopathy. No stiffness or restricted ROM. CHEST: Normal to inspection HEART: Normal rate and regular rhythm, normal S1/S2, no M/R/G LUNGS: LS CTA, moving air well. Able to speak in complete sentences. No crackles, wheezes, or rhonchi auscultated ABDOMEN: Soft, nontender, nondistended. Normal bowel sounds noted BACK: No CVAT, no obvious deformity EXTREMITIES: Moving all extremities without difficulty. No cyanosis, clubbing, or edema. Normal capillary refill. NEUROLOGICAL: Alert and oriented, moving all 4 extremities with equal strength. CN not formally tested but appearing grossly intact. Observed to ambulate with normal gait. Cognition normal SKIN: Warm and dry without any lesions, rash, or visible sores PSYCH: Cooperative, normal affect, normal thought process <Anjali Donovan NP - Last Filed: 11/18/22 17:07> Course Course Course Narrative: RME- 14:45pm 27yoF c PMHx of TIA, ovarian cancer with METs to Liver failed Chemo/radiation presenting to the ED c c/o generalized fatigue/malaise, general weakness, Dizziness, nausea, Chest pressure/sharp stabbing sensation radiating to back, SOB worse when she lays down and elevated BP's in 200's/100's x 2 months now worse in the past 2 days. Reports she is coughing with green colored sputum production. Plan: Labs, EKG, CXR, UA, UHCG. Patient will be sent to the ER for further evaluation treatment. <LOWELL Bro - Last Filed: 11/18/22 14:43> Medical Decision Making Medical Decision Making [facility] Narrative: 27-year-old female with a complex past medical history including ovarian and liver cancers, on palliative care, presents emergency department today with complaints intermittent dizziness, chest pressure, nausea, weakness, and high blood pressure x 2 months. Blood work unremarkable. Serology negative for influenza, RSV, and COVID-19. Chest x-ray showing well expanded clear lungs, no consolidation, edema, or effusion. No pneumothorax, cardiomediastinal silhouette within normal limits. EKG showing normal sinus rhythm with sinus rhythm at 69 beats per minute. History, physical, and diagnostic exams consistent with acute fatigue with no infectious pathology. A low suspicion for ACS, PE, or metastasis. Patient is safe for discharge at this time with plan to manage symptoms with [id number] Tylenol and/or NSAIDs. HPI, PE, diagnostics, and plan discussed with patient and family with no unanswered questions at this time. Patient educated to return to the emergency department with new, worsening, or concerning emergent symptoms. Recommended to follow-up with there primary care provider for further treatment and management. *Refer to Course for additional information on consultations, diagnostic interpretation, consultations, emergency department stay, conversations with patient and family, shared decision making with patient, and more information on medical decision making* <Anjali Donovan NP - Last Filed: 11/18/22 17:07> Lab Data [facility] Lab Attestation statement: I reviewed the patient's lab results. <Anjali Donovan NP - Last Filed: 11/18/22 17:07> Result Diagrams: 11/18/22 14:35 11/18/22 14:35 <LOWELL Bro - Last Filed: 11/18/22 14:43> Labs: Lab Results 11/18/22 11/18/22 11/18/22 Range/Units 14:35 14:35 14:35 WBC 7.3 (4.8-10.8) X10*3/uL RBC 4.88 (4.20-5.50) X10*6/uL Hgb 12.3 (12.0-16.0) g/dl Hct 38.7 (37.0-47.0) % MCV 79.3 L (80.0-98.0) fL MCH 25.2 L (27.0-33.0) pg MCHC 31.8 (31.0-35.0) g/dl RDW 14.2 (11.0-16.0) % Plt Count 396 (160-400) X10*3/uL MPV 9.1 L (9.4-12.3) fL Immature Gran % (Auto) 0.3 (0.0-0.4) % Neut % (Auto) 54.1 (45-73) % Lymph % (Auto) 35.7 (20-40) % Desha % (Auto) 6.5 (2-11) % Eos % (Auto) 2.9 (0-4) % Baso % (Auto) 0.5 (0-2) % Lymph # (Auto) 2.6 (1.2-4.9) X10*3/uL Desha # (Auto) 0.5 (0.1-1.2) X10*3/uL Eos # (Auto) 0.2 (0.0-0.4) X10*3/uL Baso # (Auto) 0.0 (0.0-0.2) X10*3/uL Abs Immat Gran (auto) 0.02 (0.00-0.03) X10*3/uL Absolute Neuts (auto) 4.0 (2.0-8.3) x10*3/uL Absolute Nucleated RBC 0.000 (0.0-0.012) X10*3/uL Nucleated RBC % (auto) 0.0 (0.0-0.2) /100WBC PT 11.3 (10.0-13.1) SEC INR 1.0 (0.9-1.1) Sodium 139 (135-145) mmol/L Potassium 3.9 (3.3-5.1) mmol/L Chloride 108 (96-108) mmol/L Carbon Dioxide 23 (22-29) mmol/L Anion Gap 12 (12-20) BUN 12 (9-16) mg/dL Creatinine 0.76 (0.5-1.4) mg/dL Estim Creat Clear Calc 156.0 Estimated GFR > 60 Random Glucose 102 (60-115) mg/dL Calcium 8.8 D (8.4-10.2) mg/dL Magnesium 2.0 (1.6-2.6) mg/dL Total Bilirubin 0.5 (0.0-1.0) mg/dL AST 13 (5-31) U/L ALT 9 (0-31) U/L Alkaline Phosphatase 54 (39-117) U/L Troponin I High Sens (<3.5-17.0) ng/L B-Natriuretic Peptide (<100) pg/mL Total Protein 6.6 (6.5-8.0) g/dL Albumin 3.7 (3.5-5.0) g/dL Lipase 19 (8-78) U/L Beta HCG, Quant < 2 mIU/mL Urine Color Urine Appearance Urine pH (5.0-9.0) Ur Specific [place] (1.005-1.025) Urine Protein (Neg-Trace) mg/dL Urine Glucose (UA) (Negative) mg/dL Urine Ketones (Negative) mg/dL Urine Blood (Negative) Urine Nitrite (Negative) Ur Leukocyte Esterase (Negative) Influenza Type A (PCR) (Negative) Influenza Type B (PCR) (Negative) RSV RNA Qual (PCR) (Negative) SARS-CoV-2 RNA (RT-PCR) (Negative) 11/18/22 11/18/22 11/18/22 Range/Units 14:35 14:35 14:35 WBC (4.8-10.8) X10*3/uL RBC (4.20-5.50) X10*6/uL Hgb (12.0-16.0) g/dl Hct (37.0-47.0) % MCV (80.0-98.0) fL MCH (27.0-33.0) pg MCHC (31.0-35.0) g/dl RDW (11.0-16.0) % Plt Count (160-400) X10*3/uL MPV (9.4-12.3) fL Immature Gran % (Auto) (0.0-0.4) % Neut % (Auto) (45-73) % Lymph % (Auto) (20-40) % Desha % (Auto) (2-11) % Eos % (Auto) (0-4) % Baso % (Auto) (0-2) % Lymph # (Auto) (1.2-4.9) X10*3/uL Desha # (Auto) (0.1-1.2) X10*3/uL Eos # (Auto) (0.0-0.4) X10*3/uL Baso # (Auto) (0.0-0.2) X10*3/uL Abs Immat Gran (auto) (0.00-0.03) X10*3/uL Absolute Neuts (auto) (2.0-8.3) x10*3/uL Absolute Nucleated RBC (0.0-0.012) X10*3/uL Nucleated RBC % (auto) (0.0-0.2) /100WBC PT (10.0-13.1) SEC INR (0.9-1.1) Sodium (135-145) mmol/L Potassium (3.3-5.1) mmol/L Chloride (96-108) mmol/L Carbon Dioxide (22-29) mmol/L Anion Gap (12-20) BUN (9-16) mg/dL Creatinine (0.5-1.4) mg/dL Estim Creat Clear Calc Estimated GFR Random Glucose (60-115) mg/dL Calcium (8.4-10.2) mg/dL Magnesium (1.6-2.6) mg/dL Total Bilirubin (0.0-1.0) mg/dL AST (5-31) U/L ALT (0-31) U/L Alkaline Phosphatase (39-117) U/L Troponin I High Sens < 3.5 (<3.5-17.0) ng/L B-Natriuretic Peptide < 10 (<100) pg/mL Total Protein (6.5-8.0) g/dL Albumin (3.5-5.0) g/dL Lipase (8-78) U/L Beta HCG, Quant mIU/mL Urine Color Urine Appearance Urine pH (5.0-9.0) Ur Specific [place] (1.005-1.025) Urine Protein (Neg-Trace) mg/dL Urine Glucose (UA) (Negative) mg/dL Urine Ketones (Negative) mg/dL Urine Blood (Negative) Urine Nitrite (Negative) Ur Leukocyte Esterase (Negative) Influenza Type A (PCR) NEGATIVE (Negative) Influenza Type B (PCR) NEGATIVE (Negative) RSV RNA Qual (PCR) NEGATIVE (Negative) SARS-CoV-2 RNA (RT-PCR) NEGATIVE (Negative) 11/18/22 Range/Units 16:49 WBC (4.8-10.8) X10*3/uL RBC (4.20-5.50) X10*6/uL Hgb (12.0-16.0) g/dl Hct (37.0-47.0) % MCV (80.0-98.0) fL MCH (27.0-33.0) pg MCHC (31.0-35.0) g/dl RDW (11.0-16.0) % Plt Count (160-400) X10*3/uL MPV (9.4-12.3) fL Immature Gran % (Auto) (0.0-0.4) % Neut % (Auto) (45-73) % Lymph % (Auto) (20-40) % Desha % (Auto) (2-11) % Eos % (Auto) (0-4) % Baso % (Auto) (0-2) % Lymph # (Auto) (1.2-4.9) X10*3/uL Desha # (Auto) (0.1-1.2) X10*3/uL Eos # (Auto) (0.0-0.4) X10*3/uL Baso # (Auto) (0.0-0.2) X10*3/uL Abs Immat Gran (auto) (0.00-0.03) X10*3/uL Absolute Neuts (auto) (2.0-8.3) x10*3/uL Absolute Nucleated RBC (0.0-0.012) X10*3/uL Nucleated RBC % (auto) (0.0-0.2) /100WBC PT (10.0-13.1) SEC INR (0.9-1.1) Sodium (135-145) mmol/L Potassium (3.3-5.1) mmol/L Chloride (96-108) mmol/L Carbon Dioxide (22-29) mmol/L Anion Gap (12-20) BUN (9-16) mg/dL Creatinine (0.5-1.4) mg/dL Estim Creat Clear Calc Estimated GFR Random Glucose (60-115) mg/dL Calcium (8.4-10.2) mg/dL Magnesium (1.6-2.6) mg/dL Total Bilirubin (0.0-1.0) mg/dL AST (5-31) U/L ALT (0-31) U/L Alkaline Phosphatase (39-117) U/L Troponin I High Sens (<3.5-17.0) ng/L B-Natriuretic Peptide (<100) pg/mL Total Protein (6.5-8.0) g/dL Albumin (3.5-5.0) g/dL Lipase (8-78) U/L Beta HCG, Quant mIU/mL Urine Color Yellow Urine Appearance Clear Urine pH 5.0 (5.0-9.0) Ur Specific [place] 1.025 (1.005-1.025) Urine Protein Negative (Neg-Trace) mg/dL Urine Glucose (UA) Negative (Negative) mg/dL Urine Ketones Negative (Negative) mg/dL Urine Blood Negative (Negative) Urine Nitrite Negative (Negative) Ur Leukocyte Esterase Negative (Negative) Influenza Type A (PCR) (Negative) Influenza Type B (PCR) (Negative) RSV RNA Qual (PCR) (Negative) SARS-CoV-2 RNA (RT-PCR) (Negative) <LOWELL Bro - Last Filed: 11/18/22 14:43> Lab Results 11/18/22 11/18/22 11/18/22 Range/Units 14:35 14:35 14:35 WBC 7.3 (4.8-10.8) X10*3/uL RBC 4.88 (4.20-5.50) X10*6/uL Hgb 12.3 (12.0-16.0) g/dl Hct 38.7 (37.0-47.0) % MCV 79.3 L (80.0-98.0) fL MCH 25.2 L (27.0-33.0) pg MCHC 31.8 (31.0-35.0) g/dl RDW 14.2 (11.0-16.0) % Plt Count 396 (160-400) X10*3/uL MPV 9.1 L (9.4-12.3) fL Immature Gran % (Auto) 0.3 (0.0-0.4) % Neut % (Auto) 54.1 (45-73) % Lymph % (Auto) 35.7 (20-40) % Desha % (Auto) 6.5 (2-11) % Eos % (Auto) 2.9 (0-4) % Baso % (Auto) 0.5 (0-2) % Lymph # (Auto) 2.6 (1.2-4.9) X10*3/uL Desha # (Auto) 0.5 (0.1-1.2) X10*3/uL Eos # (Auto) 0.2 (0.0-0.4) X10*3/uL Baso # (Auto) 0.0 (0.0-0.2) X10*3/uL Abs Immat Gran (auto) 0.02 (0.00-0.03) X10*3/uL Absolute Neuts (auto) 4.0 (2.0-8.3) x10*3/uL Absolute Nucleated RBC 0.000 (0.0-0.012) X10*3/uL Nucleated RBC % (auto) 0.0 (0.0-0.2) /100WBC PT 11.3 (10.0-13.1) SEC INR 1.0 (0.9-1.1) Sodium 139 (135-145) mmol/L Potassium 3.9 (3.3-5.1) mmol/L Chloride 108 (96-108) mmol/L Carbon Dioxide 23 (22-29) mmol/L Anion Gap 12 (12-20) BUN 12 (9-16) mg/dL Creatinine 0.76 (0.5-1.4) mg/dL Estim Creat Clear Calc 156.0 Estimated GFR > 60 Random Glucose 102 (60-115) mg/dL Calcium 8.8 D (8.4-10.2) mg/dL Magnesium 2.0 (1.6-2.6) mg/dL Total Bilirubin 0.5 (0.0-1.0) mg/dL AST 13 (5-31) U/L ALT 9 (0-31) U/L Alkaline Phosphatase 54 (39-117) U/L Troponin I High Sens (<3.5-17.0) ng/L B-Natriuretic Peptide (<100) pg/mL Total Protein 6.6 (6.5-8.0) g/dL Albumin 3.7 (3.5-5.0) g/dL Lipase 19 (8-78) U/L Beta HCG, Quant < 2 mIU/mL Urine Color Urine Appearance Urine pH (5.0-9.0) Ur Specific [place] (1.005-1.025) Urine Protein (Neg-Trace) mg/dL Urine Glucose (UA) (Negative) mg/dL Urine Ketones (Negative) mg/dL Urine Blood (Negative) Urine Nitrite (Negative) Ur Leukocyte Esterase (Negative) Influenza Type A (PCR) (Negative) Influenza Type B (PCR) (Negative) RSV RNA Qual (PCR) (Negative) SARS-CoV-2 RNA (RT-PCR) (Negative) 11/18/22 11/18/22 11/18/22 Range/Units 14:35 14:35 14:35 WBC (4.8-10.8) X10*3/uL RBC (4.20-5.50) X10*6/uL Hgb (12.0-16.0) g/dl Hct (37.0-47.0) % MCV (80.0-98.0) fL MCH (27.0-33.0) pg MCHC (31.0-35.0) g/dl RDW (11.0-16.0) % Plt Count (160-400) X10*3/uL MPV (9.4-12.3) fL Immature Gran % (Auto) (0.0-0.4) % Neut % (Auto) (45-73) % Lymph % (Auto) (20-40) % Desha % (Auto) (2-11) % Eos % (Auto) (0-4) % Baso % (Auto) (0-2) % Lymph # (Auto) (1.2-4.9) X10*3/uL Desha # (Auto) (0.1-1.2) X10*3/uL Eos # (Auto) (0.0-0.4) X10*3/uL Baso # (Auto) (0.0-0.2) X10*3/uL Abs Immat Gran (auto) (0.00-0.03) X10*3/uL Absolute Neuts (auto) (2.0-8.3) x10*3/uL Absolute Nucleated RBC (0.0-0.012) X10*3/uL Nucleated RBC % (auto) (0.0-0.2) /100WBC PT (10.0-13.1) SEC INR (0.9-1.1) Sodium (135-145) mmol/L Potassium (3.3-5.1) mmol/L Chloride (96-108) mmol/L Carbon Dioxide (22-29) mmol/L Anion Gap (12-20) BUN (9-16) mg/dL Creatinine (0.5-1.4) mg/dL Estim Creat Clear Calc Estimated GFR Random Glucose (60-115) mg/dL Calcium (8.4-10.2) mg/dL Magnesium (1.6-2.6) mg/dL Total Bilirubin (0.0-1.0) mg/dL AST (5-31) U/L ALT (0-31) U/L Alkaline Phosphatase (39-117) U/L Troponin I High Sens < 3.5 (<3.5-17.0) ng/L B-Natriuretic Peptide < 10 (<100) pg/mL Total Protein (6.5-8.0) g/dL Albumin (3.5-5.0) g/dL Lipase (8-78) U/L Beta HCG, Quant mIU/mL Urine Color Urine Appearance Urine pH (5.0-9.0) Ur Specific [place] (1.005-1.025) Urine Protein (Neg-Trace) mg/dL Urine Glucose (UA) (Negative) mg/dL Urine Ketones (Negative) mg/dL Urine Blood (Negative) Urine Nitrite (Negative) Ur Leukocyte Esterase (Negative) Influenza Type A (PCR) NEGATIVE (Negative) Influenza Type B (PCR) NEGATIVE (Negative) RSV RNA Qual (PCR) NEGATIVE (Negative) SARS-CoV-2 RNA (RT-PCR) NEGATIVE (Negative) 11/18/22 Range/Units 16:49 WBC (4.8-10.8) X10*3/uL RBC (4.20-5.50) X10*6/uL Hgb (12.0-16.0) g/dl Hct (37.0-47.0) % MCV (80.0-98.0) fL MCH (27.0-33.0) pg MCHC (31.0-35.0) g/dl RDW (11.0-16.0) % Plt Count (160-400) X10*3/uL MPV (9.4-12.3) fL Immature Gran % (Auto) (0.0-0.4) % Neut % (Auto) (45-73) % Lymph % (Auto) (20-40) % Desha % (Auto) (2-11) % Eos % (Auto) (0-4) % Baso % (Auto) (0-2) % Lymph # (Auto) (1.2-4.9) X10*3/uL Desha # (Auto) (0.1-1.2) X10*3/uL Eos # (Auto) (0.0-0.4) X10*3/uL Baso # (Auto) (0.0-0.2) X10*3/uL Abs Immat Gran (auto) (0.00-0.03) X10*3/uL Absolute Neuts (auto) (2.0-8.3) x10*3/uL Absolute Nucleated RBC (0.0-0.012) X10*3/uL Nucleated RBC % (auto) (0.0-0.2) /100WBC PT (10.0-13.1) SEC INR (0.9-1.1) Sodium (135-145) mmol/L Potassium (3.3-5.1) mmol/L Chloride (96-108) mmol/L Carbon Dioxide (22-29) mmol/L Anion Gap (12-20) BUN (9-16) mg/dL Creatinine (0.5-1.4) mg/dL Estim Creat Clear Calc Estimated GFR Random Glucose (60-115) mg/dL Calcium (8.4-10.2) mg/dL Magnesium (1.6-2.6) mg/dL Total Bilirubin (0.0-1.0) mg/dL AST (5-31) U/L ALT (0-31) U/L Alkaline Phosphatase (39-117) U/L Troponin I High Sens (<3.5-17.0) ng/L B-Natriuretic Peptide (<100) pg/mL Total Protein (6.5-8.0) g/dL Albumin (3.5-5.0) g/dL Lipase (8-78) U/L Beta HCG, Quant mIU/mL Urine Color Yellow Urine Appearance Clear Urine pH 5.0 (5.0-9.0) Ur Specific [place] 1.025 (1.005-1.025) Urine Protein Negative (Neg-Trace) mg/dL Urine Glucose (UA) Negative (Negative) mg/dL Urine Ketones Negative (Negative) mg/dL Urine Blood Negative (Negative) Urine Nitrite Negative (Negative) Ur Leukocyte Esterase Negative (Negative) Influenza Type A (PCR) (Negative) Influenza Type B (PCR) (Negative) RSV RNA Qual (PCR) (Negative) SARS-CoV-2 RNA (RT-PCR) (Negative) <Anjali Donovan NP - Last Filed: 11/18/22 17:07> Independent Interpretation I performed an independent interpretation of an: EKG <Anjali Donovan NP - Last Filed: 11/18/22 17:07> Interpretation: Have independently reviewed the EKG showing normal sinus rhythm with sinus arrhythmia at 69 beats per minute. Vent. Rate : 069 BPM ? ? Atrial Rate : 069 BPM ?? P-R Int : 154 ms? QRS Dur : 086 ms ? ? QT Int : 382 ms ? ? ? P-R-T Axes : 013 039 007 degrees ?? QTc Int : 409 ms ? Normal sinus rhythm with sinus arrhythmia Normal ECG No previous ECGs available <Anjali Donovan NP - Last Filed: 11/18/22 17:07> Radiology Impression Radiologist Impression: Have independently reviewed the chest x-ray showing well-expanded lungs, no pneumothorax, no signs of pneumonia. EXAMINATION: XR CHEST CLINICAL INFORMATION: Chest pain COMPARISON: 01/19/2021 TECHNIQUE: 2 views of the chest were obtained. FINDINGS: The lungs are well expanded. There is no focal consolidation, edema, or effusion. No pneumothorax. The cardiomediastinal silhouette is within normal limits. No acute osseous abnormality. XR/XR chest 2V IMPRESSION: Clear lungs. ? Dictated By: Loki Bryant MD Signed By: <Electronically signed by Loki Bryant MD in [place]> 11/18/22 1523 DD/ 1517 TD/TT:? Warehouse Foreman: MUKESH <Anjali Donovan NP - Last Filed: 11/18/22 17:07> Discharge Plan Discharge Clinical Impression: Fatigue <LOWELL Bro - Last Filed: 11/18/22 14:43> Patient Disposition: Home, Self-Care <LOWELL Bro - Last Filed: 11/18/22 14:43> Instructions: Heart Healthy Diet (ED), Hypertension (ED), Fatigue (ED) <LOWELL Bro - Last Filed: 11/18/22 14:43> Additional Instructions: Your blood work is unremarkable. Her nasal swab is negative for influenza, RSV, and COVID-19. Your urine is negative for infection. Your EKG is normal sinus rhythm with sinus arrhythmia at 69 beats per minute. Your chest x-ray is negative for signs of infection, and shows your lungs are well expanded without any bony abnormalities. You are safe for discharge at this time. You may manage any symptoms with [id number] Tylenol and or NSAIDs such as ibuprofen or naproxen. Please return to the emergency department with new, worsening, or concerning emergent symptoms. Please follow-up your primary care provider addition to her specialist for further treatment and management. <LOWELL Bro - Last Filed: 11/18/22 14:43> Prescriptions: No Action albuterol sulfate 90 mcg/actuation Hfa Aerosol Inhaler 2 puff INHALATION Q4H PRN (Reason: Shortness Of Breath) lamotrigine 25 mg tablet See Rx Instructions .ROUTE .COMPLEX 14 Days Qty: 21 0RF Rx Instructions: Take 1 tab PO daily x 7 days, then 1 tab PO twice a day prednisone 20 mg tablet 40 mg PO DAILY Qty: 10 0RF benzonatate [Tessalon Perles] 100 mg capsule 100 mg PO TID PRN (Reason: cough) Qty: 15 0RF <LOWELL Bro - Last Filed: 11/18/22 14:43> Referrals: Jaky Zamora MD [Primary Care Provider] - <LOWELL Bro - Last Filed: 11/18/22 14:43> Stand Alone Forms: Work/School Release <LOWELL Bro - Last Filed: 11/18/22 14:43> Print Language: Qatari <LOWELL Bro - Last Filed: 11/18/22 14:43>
[2022-11-18 14:40] LABS: MANUAL DIFF FLAG NO
[2022-11-18 14:48] LABS: Basophils Percent Auto 0.5 % (0-2); Eosinophils Absolute Auto 0.2 X10*3/uL (0.0-0.4); Eosinophils Percent Auto 2.9 % (0-4); Hematocrit 38.7 % (37.0-47.0); Hemoglobin 12.3 g/dl (12.0-16.0); Imm Gran Abs Auto 0.02 X10*3/uL (0.00-0.03); Imm Gran Pct Auto 0.3 % (0.0-0.4); Lymphocytes Absolute Auto 2.6 X10*3/uL (1.2-4.9); Lymphocytes Percent Auto 35.7 % (20-40); Mean Corpuscular HGB Conc 31.8 g/dl (31.0-35.0); Mean Corpuscular Hemoglobin 25.2 pg (27.0-33.0); Mean Corpuscular Volume 79.3 fL (80.0-98.0); Mean Platelet Volume 9.1 fL (9.4-12.3); Monocytes Absolute Auto 0.5 X10*3/uL (0.1-1.2); Monocytes Percent Auto 6.5 % (2-11); Neutrophils Percent Auto 54.1 % (45-73); Platelet Count 396 X10*3/uL (160-400); Red Blood Count 4.88 X10*6/uL (4.20-5.50); Red Cell Distribution Width 14.2 % (11.0-16.0); White Blood Count 7.3 X10*3/uL (4.8-10.8)
--- NOTE | 2022-11-18 14:53 | PC.NURSE ---
Patient AOx 4 complaint of intermittent chest pain feels like stabbing pain some nausea as well no recent travel or sick contact. Patient was covid + in september. LS clear no distress noted but does become SOB with exertion. No exacerbation of chest pain with light palpation. IV access obtained will CTM
[2022-11-18 14:59] LABS: Prothrombin Time 11.3 SEC (10.0-13.1)
[2022-11-18 15:02] LABS: Alanine Aminotransferase 9 U/L (0-31); Albumin Level 3.7 g/dL (3.5-5.0); Alkaline Phosphatase 54 U/L (39-117); Anion Gap 12 (12-20); Aspartate Amino Transferase 13 U/L (5-31); Bilirubin Total 0.5 mg/dL (0.0-1.0); Blood Urea Nitrogen 12 mg/dL (9-16); Calcium 8.8 mg/dL (8.4-10.2); Carbon Dioxide 23 mmol/L (22-29); Chloride 108 mmol/L (96-108); Estimated Glomerular Filt Rate > 60; Glucose Random 102 mg/dL (60-115); Lipase 19 U/L (8-78); Potassium 3.9 mmol/L (3.3-5.1); Sodium 139 mmol/L (135-145); Total Protein 6.6 g/dL (6.5-8.0)
--- NOTE | 2022-11-18 15:15 | PC.NURSE ---
Patient to X ray
[2022-11-18 15:18] LABS: HCG Quantitative < 2 mIU/mL; Troponin-I High Sensitivity < 3.5 ng/L (<3.5-17.0)
[2022-11-18 15:19] LABS: Influenza A PCR NEGATIVE (Negative); Influenza B PCR NEGATIVE (Negative); Resp Syncy Virus RNA Qual PCR NEGATIVE (Negative); SARS COV2 PCR INHOUSE NEGATIVE (Negative)
[2022-11-18 16:17] LABS: B Type Natriuretic Peptide < 10 pg/mL (<100)
[2022-11-18 16:56] LABS: Appearance Urine Clear; Color Urine Yellow; Glucose Urine UA Negative (Negative); Leukocyte Esterase Urine Negative (Negative); Nitrite Urine Negative (Negative); Specific Gravity - Urine 1.025 (1.005-1.025); Urine Blood Negative (Negative); Urine Ketones Negative (Negative); Urine Protein Negative (Neg-Trace)
[2022-11-18 17:07] LABS: Amphetamine Screen Urine Not Detected (Not Detect); Barbiturates, Urine Not Detected (Not Detect); Benzodiazepines Screen Urine Not Detected (Not Detect); Cannabinoid Screen Urine Not Detected (Not Detect); Cocaine Screen Urine Not Detected (Not Detect); Fentanyl, urine Not Detected (Not Detect); Opiate Screen Urine Not Detected (Not Detect); Phencyclidine Screen Urine Not Detected (Not Detect)
== END 2022-11-18 17:33 | disposition home or self-care (01) ==
PROVIDERS: Nurse Practitioner Family; Physician Assistant Medical; Emergency Provider Emergency Medicine; PCP Internal Medicine
DX: R53.83 Other fatigue (principal); R06.02 Shortness of breath; Z20.822 Contact with and (suspected) exposure to COVID-19; Z20.828 Contact with and (suspected) exposure to other viral communicable diseases; C56.9 Malignant neoplasm of unspecified ovary; C78.7 Secondary malignant neoplasm of liver and intrahepatic bile duct; F31.81 Bipolar II disorder; Z86.73 Personal history of transient ischemic attack (TIA), and cerebral infarction without residual deficits; Z79.899 Other long term (current) drug therapy
CPT/HCPCS: 0241U; 71046; 80053; 80307; 81003; 83690; 83735; 83880; 84484; 84702; 85025; 85610; 93005; 99283; 99284

== ENCOUNTER 2023-05-07 13:07 | Emergency (ER) | payer OTHER, SELFPAY ==
--- NOTE | ~2023-05-07 | XR_ITS ---
EXAMINATION: XR CHEST CLINICAL INFORMATION: Fever COMPARISON: 11/18/2022 TECHNIQUE: 2 views of the chest were obtained. FINDINGS: Lungs are well-inflated and clear. Trachea is midline in position. No interstitial disease, consolidation or mass. No pleural effusion or pneumothorax. Cardiac silhouette and pulmonary vessels are normal in size. The mediastinum and len have normal contour. Chronic mild dextrocurvature of the thoracal lumbar spine. Otherwise, the visualized bones and upper abdomen are unremarkable. XR/XR chest 2V IMPRESSION: No acute cardiopulmonary abnormality. No evidence of pneumonia.
--- NOTE | 2023-05-07 14:19 | ED.URI ---
HPI - URI/Sore Throat General Chief Complaint: General Medical Stated Complaint: body pain fever chills multi complaints Time Seen by Provider: 05/07/23 20:45 Source: patient Mode of arrival: ambulatory Limitations: no limitations History of Present Illness HPI Narrative: Patient comes to the emergency room complaining of body aches from yesterday, subjective fever. Patient went to Urgent Care, RSV, flu and COVID were negative. Patient was sent to the emergency room for further evaluation. Patient denies hematuria or dysuria, no flank pain. Denies URI symptoms Related Data Home Medications Medication Instructions Recorded Confirmed albuterol sulfate 90 mcg/actuation 2 puff inhalation Q4H PRN 01/06/21 01/06/21 aerosol inhaler Shortness Of Breath Previous Rx's Medication Instructions Recorded lamotrigine 25 mg tablet See Rx Instructions .Route 01/16/21 .COMPLEX 14 days #21 tabs benzonatate 100 mg capsule 100 mg PO TID PRN cough #15 caps 01/19/21 (Servando Bryant) prednisone 20 mg tablet 40 mg PO DAILY #10 tabs 01/19/21 acetaminophen 500 mg capsule 500 mg PO Q6H PRN fever or pain 05/07/23 #20 caps cefuroxime axetil 500 mg tablet 500 mg PO BID #13 tabs 05/07/23 ibuprofen 600 mg tablet 600 mg PO Q8H PRN fever or pain 05/07/23 #20 tabs Allergies Allergy/AdvReac Type Severity Reaction Status Date / Time latex [LATEX] Allergy Intermediate HIVES Unverified 07/11/20 16:39 vancomycin [VANCOMYCIN] Allergy Intermediate HIVES Unverified 07/11/20 16:39 shrimp Allergy Anaphylaxis Verified 01/06/21 12:16 Review of Systems Review of Systems: Constitutional : No Weight loss, complaining of fever and chills, fatigue and generalized malaise, diffuse body aches ENT/Mouth : No Hearing loss, No Ear Pain, No Nasal Congestion, No Sinus Pain, No Hoarseness, No sore throat, No Rhinorrhea, No Swallowing Difficulty Eyes: No Eye Pain, No Swelling, No Redness, No Foreign Body, No Discharge, No Vision Changes Cardiovascular : No Chest Pain, No SOB, No Dyspnea on Exertion, No Orthopnea, No Edema, No Palpitations Respiratory : No Cough, No Sputum, No Wheezing, No Smoke Exposure, No Dyspnea Gastrointestinal : No Nausea, No Vomiting, No Diarrhea, No Constipation, No abdominal Pain, No Hematochezia, No Melena Genitourinary : no irregular bleeding, No Dysuria, No Urinary Frequency, No Hematuria, No Urinary Incontinence, No Urgency, No Flank Pain, No Urinary Flow Changes, No Hesitancy Musculoskeletal : No joint pain, No Myalgias, No Joint Swelling Skin : No Skin Lesions, No rash Neuro : No Weakness, No Numbness, No Paresthesias, No Loss of Consciousness, No Dizziness, No Headache Psych : No Anxiety/Panic, No Depression, No SI/HI/AH/VH, No Social Issues, Heme/Lymph: No Bruising, No Bleeding,No Lymphadenopathy Endocrine : No Polyuria, No Polydipsia, No Temperature Intolerance [facility] Past Medical History Medical History Abdominal tumor Asthma Liver cancer Ovarian cancer TIA (transient ischemic attack) Surgical History Hx of removal of ovary Social History Social History Household Members: Family Alcohol intake: unknown Advance Directives: No Advance Directives Information Provided: Yes Physical Exam Vital Signs: Vital Signs: Last Vital Signs Temp 97.7 F 05/07/23 19:39 Pulse 85 05/07/23 19:39 Resp 16 05/07/23 19:39 BP 132/90 H 05/07/23 19:39 Pulse Ox 98 05/07/23 19:39 O2 Del Method Room Air 05/07/23 19:39 BMI result Body Mass Index 49.8 Const: Other: Appearance: Alert. Oriented X3. No acute distress. Eyes: Pupils equal, round and reactive to light. ENT: Pharynx normal. Neck: Normal inspection. Neck supple. No lymph nodes noted. No crepitus CVS: Normal heart rate and rhythm. Pulses normal. Normal S1 and S2 Respiratory: No respiratory distress. Breath sounds normal. No Wheezing. No rales Abdomen: Soft and nontender. No rigidity. No distention. Skin: Skin warm and dry. Normal skin color. Normal skin turgor. Extremities: No lower extremity edema. No Lacerations. No Rash Neuro: Oriented X 3. No motor deficit. No sensory deficit. Moving all extremities. No slurred speech. CN 2 through 12 grossly intact Psych: calm, cooperative, normal affect Course Course Course Narrative: RME: 27-year-old female with a past medical history of asthma, liver CA, metastatic ovarian CA not currently on chemo/radiation (not treatable per patient), TIA c/o subj fever since yesterday w/chills & sweats, sore throat, back pain, [place], lower abdominal pain & lethargy. Follows at [facility]. Was seen at [facility] and tested negative for COVID/FLU/RSV & strep. denies taking antipyretics today Labs, UA, CXR, lactic/blood cx ordered Full HPI, ROS and PE to be performed by primary ED provider. Medications Administered Discontinued Medications Generic Name Dose Route Start Last Admin Trade Name Freq PRN Reason Stop Dose Admin Acetaminophen 650 mg 05/07/23 21:18 05/07/23 21:26 Acetaminophen 325 Mg Tablet PO 05/07/23 21:19 650 mg ONCE ONE Administration Medical Decision Making Medical Decision Making [facility] Narrative: -patient's white blood cell within normal limits, my interpretation of labs: Negative serology for COVID influenza and RSV -my interpretation of chest x-ray: No pneumonia or infiltrates -mentor position of UA, patient has a UTI Differential Diagnosis Differential Diagnoses: The differential diagnosis associated with the presentation includes (COVID, RSV, pneumonia, viral syndrome) Lab Data [facility] Lab Attestation statement: I reviewed the patient's lab results. 05/07/23 15:40 05/07/23 15:40 Labs: Lab Results 05/07/23 05/07/23 05/07/23 Range/Units 15:38 15:40 15:40 WBC 5.2 (4.8-10.8) X10*3/uL RBC 5.10 (4.20-5.50) X10*6/uL Hgb 12.9 (12.0-16.0) g/dl Hct 40.4 (37.0-47.0) % MCV 79.2 L (80.0-98.0) fL MCH 25.3 L (27.0-33.0) pg MCHC 31.9 (31.0-35.0) g/dl RDW 14.6 (11.0-16.0) % Plt Count 369 (160-400) X10*3/uL MPV 9.2 L (9.4-12.3) fL Immature Gran % (Auto) 0.2 (0.0-0.4) % Neut % (Auto) 50.8 (45-73) % Lymph % (Auto) 33.3 (20-40) % [place] % (Auto) 14.0 H (2-11) % Eos % (Auto) 1.3 (0-4) % Baso % (Auto) 0.4 (0-2) % Lymph # (Auto) 1.7 (1.2-4.9) X10*3/uL [place] # (Auto) 0.7 (0.1-1.2) X10*3/uL Eos # (Auto) 0.1 (0.0-0.4) X10*3/uL Baso # (Auto) 0.0 (0.0-0.2) X10*3/uL Abs Immat Gran (auto) 0.01 (0.00-0.03) X10*3/uL Absolute Neuts (auto) 2.7 (2.0-8.3) x10*3/uL Absolute Nucleated RBC 0.000 (0.0-0.012) X10*3/uL Nucleated RBC % (auto) 0.0 (0.0-0.2) /100WBC PT (10.0-13.1) SEC INR (0.9-1.1) Sodium 136 (135-145) mmol/L Potassium 3.5 (3.3-5.1) mmol/L Chloride 104 (96-108) mmol/L Carbon Dioxide 23 (22-29) mmol/L Anion Gap 13 (12-20) BUN 11 (9-16) mg/dL Creatinine 0.69 (0.5-1.4) mg/dL Estim Creat Clear Calc 172.5 Estimated GFR > 60 Random Glucose 90 (60-115) mg/dL Lactic Acid 0.9 (0.5-2.0) mmol/L Calcium 9.2 (8.4-10.2) mg/dL Magnesium 2.4 (1.6-2.6) mg/dL Total Bilirubin 0.7 (0.0-1.0) mg/dL Direct Bilirubin 0.3 (0.0-0.5) mg/dL AST 17 (5-31) U/L ALT 15 (0-31) U/L Alkaline Phosphatase 39 (39-117) U/L Total Protein 7.6 (6.5-8.0) g/dL Albumin 4.2 (3.5-5.0) g/dL Lipase 9 (8-78) U/L Urine Color Urine Appearance Urine pH (5.0-9.0) Ur Specific [place] (1.005-1.025) Urine Protein (Neg-Trace) mg/dL Urine Glucose (UA) (Negative) mg/dL Urine Ketones (Negative) mg/dL Urine Blood (Negative) Urine Nitrite (Negative) Ur Leukocyte Esterase (Negative) Urine RBC (0-2) /HPF Urine WBC (0-5) /HPF Ur Squamous Epith Cells (0-2) /HPF Urine Bacteria (None Seen) Hyaline Casts (0-2) /LPF Urine Test (NEGATIVE) 05/07/23 05/07/23 05/07/23 Range/Units 15:40 15:40 15:40 WBC (4.8-10.8) X10*3/uL RBC (4.20-5.50) X10*6/uL Hgb (12.0-16.0) g/dl Hct (37.0-47.0) % MCV (80.0-98.0) fL MCH (27.0-33.0) pg MCHC (31.0-35.0) g/dl RDW (11.0-16.0) % Plt Count (160-400) X10*3/uL MPV (9.4-12.3) fL Immature Gran % (Auto) (0.0-0.4) % Neut % (Auto) (45-73) % Lymph % (Auto) (20-40) % [place] % (Auto) (2-11) % Eos % (Auto) (0-4) % Baso % (Auto) (0-2) % Lymph # (Auto) (1.2-4.9) X10*3/uL [place] # (Auto) (0.1-1.2) X10*3/uL Eos # (Auto) (0.0-0.4) X10*3/uL Baso # (Auto) (0.0-0.2) X10*3/uL Abs Immat Gran (auto) (0.00-0.03) X10*3/uL Absolute Neuts (auto) (2.0-8.3) x10*3/uL Absolute Nucleated RBC (0.0-0.012) X10*3/uL Nucleated RBC % (auto) (0.0-0.2) /100WBC PT 13.5 H (10.0-13.1) SEC INR 1.2 H (0.9-1.1) Sodium (135-145) mmol/L Potassium (3.3-5.1) mmol/L Chloride (96-108) mmol/L Carbon Dioxide (22-29) mmol/L Anion Gap (12-20) BUN (9-16) mg/dL Creatinine (0.5-1.4) mg/dL Estim Creat Clear Calc Estimated GFR Random Glucose (60-115) mg/dL Lactic Acid (0.5-2.0) mmol/L Calcium (8.4-10.2) mg/dL Magnesium (1.6-2.6) mg/dL Total Bilirubin (0.0-1.0) mg/dL Direct Bilirubin (0.0-0.5) mg/dL AST (5-31) U/L ALT (0-31) U/L Alkaline Phosphatase (39-117) U/L Total Protein (6.5-8.0) g/dL Albumin (3.5-5.0) g/dL Lipase (8-78) U/L Urine Color Yellow Urine Appearance Clear Urine pH 5.5 (5.0-9.0) Ur Specific [place] 1.025 (1.005-1.025) Urine Protein Trace (Neg-Trace) mg/dL Urine Glucose (UA) Negative (Negative) mg/dL Urine Ketones 15 (Negative) mg/dL Urine Blood Negative (Negative) Urine Nitrite Negative (Negative) Ur Leukocyte Esterase Moderate (2+) H (Negative) Urine RBC 0-2 (0-2) /HPF Urine WBC 6-10 H (0-5) /HPF Ur Squamous Epith Cells 3-5 (0-2) /HPF Urine Bacteria 3+ (None Seen) Hyaline Casts 0-2 (0-2) /LPF Urine Test NEGATIVE (NEGATIVE) Radiology Impression Discussion of test interpretation with radiology: I have reviewed the radiologist's reading. Radiologist Impression: INDINGS: Lungs are well-inflated and clear. Trachea is midline in position. No interstitial disease, consolidation or mass. No pleural effusion or pneumothorax.? Cardiac silhouette and pulmonary vessels are normal in size. The mediastinum and len have normal contour. Chronic mild dextrocurvature of the thoracal lumbar spine. Otherwise, the visualized bones and upper abdomen are unremarkable. XR/XR chest 2V IMPRESSION: No acute cardiopulmonary abnormality. No evidence of pneumonia. Discharge Plan Discharge Clinical Impression: Acute viral syndrome, UTI (urinary tract infection) Patient Disposition: Home, Self-Care Instructions: Viral Syndrome (ED) Prescriptions: New cefuroxime axetil 500 mg tablet 500 mg PO BID Qty: 13 0RF acetaminophen 500 mg capsule 500 mg PO Q6H PRN (Reason: fever or pain) Qty: 20 0RF ibuprofen 600 mg tablet 600 mg PO Q8H PRN (Reason: fever or pain) Qty: 20 0RF No Action albuterol sulfate 90 mcg/actuation Hfa Aerosol Inhaler 2 puff INHALATION Q4H PRN (Reason: Shortness Of Breath) lamotrigine 25 mg tablet See Rx Instructions .ROUTE .COMPLEX 14 Days Qty: 21 0RF Rx Instructions: Take 1 tab PO daily x 7 days, then 1 tab PO twice a day prednisone 20 mg tablet 40 mg PO DAILY Qty: 10 0RF benzonatate [Tessalon Perles] 100 mg capsule 100 mg PO TID PRN (Reason: cough) Qty: 15 0RF
[2023-05-07 14:20] VITALS: BP 171/90; PULSE 85; RESP 16; TEMP 36.6; O2SAT 99; BMI 49.8
[2023-05-07 15:48] LABS: MANUAL DIFF FLAG NO
[2023-05-07 15:49] LABS: Basophils Percent Auto 0.4 % (0-2); Eosinophils Absolute Auto 0.1 X10*3/uL (0.0-0.4); Eosinophils Percent Auto 1.3 % (0-4); Hematocrit 40.4 % (37.0-47.0); Hemoglobin 12.9 g/dl (12.0-16.0); Imm Gran Abs Auto 0.01 X10*3/uL (0.00-0.03); Imm Gran Pct Auto 0.2 % (0.0-0.4); Lymphocytes Absolute Auto 1.7 X10*3/uL (1.2-4.9); Lymphocytes Percent Auto 33.3 % (20-40); Mean Corpuscular HGB Conc 31.9 g/dl (31.0-35.0); Mean Corpuscular Hemoglobin 25.3 pg (27.0-33.0); Mean Corpuscular Volume 79.2 fL (80.0-98.0); Mean Platelet Volume 9.2 fL (9.4-12.3); Monocytes Absolute Auto 0.7 X10*3/uL (0.1-1.2); Neutrophils Absolute Auto 2.7 x10*3/uL (2.0-8.3); Neutrophils Percent Auto 50.8 % (45-73); Platelet Count 369 X10*3/uL (160-400); Red Cell Distribution Width 14.6 % (11.0-16.0); White Blood Count 5.2 X10*3/uL (4.8-10.8)
[2023-05-07 15:51] LABS: Appearance Urine Clear; Color Urine Yellow; Glucose Urine UA Negative (Negative); Leukocyte Esterase Urine Moderate (2+) (Negative); Nitrite Urine Negative (Negative); PH 5.5 (5.0-9.0); Specific Gravity - Urine 1.025 (1.005-1.025); UMIC TRIGGER UACC YES; Urine Blood Negative (Negative); Urine Ketones 15 mg/dL (Negative); Urine Protein Trace mg/dL (Neg-Trace)
[2023-05-07 15:56] LABS: INTERNATIONAL NORM RATIO 1.2 (0.9-1.1); Prothrombin Time 13.5 SEC (10.0-13.1)
[2023-05-07 15:59] LABS: Bacteria Urine 3+ (None Seen); Hyaline Casts Urine 0-2 /LPF (0-2); RBC Urine 0-2 /HPF (0-2); UACC Culture Trigger YES
[2023-05-07 16:03] LABS: UPreg QC Valid YES; Urine Pregnancy NEGATIVE (NEGATIVE)
[2023-05-07 16:07] LABS: Lactic Acid 0.9 mmol/L (0.5-2.0)
[2023-05-07 16:13] LABS: Alanine Aminotransferase 15 U/L (0-31); Albumin Level 4.2 g/dL (3.5-5.0); Alkaline Phosphatase 39 U/L (39-117); Anion Gap 13 (12-20); Aspartate Amino Transferase 17 U/L (5-31); Bilirubin Direct 0.3 mg/dL (0.0-0.5); Bilirubin Total 0.7 mg/dL (0.0-1.0); Blood Urea Nitrogen 11 mg/dL (9-16); Calcium 9.2 mg/dL (8.4-10.2); Carbon Dioxide 23 mmol/L (22-29); Chloride 104 mmol/L (96-108); Creatinine Clr Calc Pharmacy 172.5; Estimated Glomerular Filt Rate > 60; Glucose Random 90 mg/dL (60-115); Lipase 9 U/L (8-78); Magnesium 2.4 mg/dL (1.6-2.6); Potassium 3.5 mmol/L (3.3-5.1); Sodium 136 mmol/L (135-145); Total Protein 7.6 g/dL (6.5-8.0)
[2023-05-07 19:39] VITALS: BP 132/90; PULSE 85; RESP 16; TEMP 36.5; O2SAT 98
[2023-05-07] MEDS: Acetaminophen 325 MG TABLET 650 MG PO (21:26)
[2023-05-07 22:00] VITALS: BP 126/64; PULSE 74; RESP 16; TEMP 36.7; O2SAT 97
== END 2023-05-07 22:24 | disposition home or self-care (01) ==
PROVIDERS: Physician Assistant; Emergency Provider Emergency Medicine; PCP Internal Medicine
DX: B34.9 Viral infection, unspecified (principal); N39.0 Urinary tract infection, site not specified; M79.10 Myalgia, unspecified site; R50.9 Fever, unspecified; Z79.899 Other long term (current) drug therapy
CPT/HCPCS: 36415; 71046; 80048; 80076; 81001; 81025; 83605; 83690; 83735; 85025; 85610; 87040; 87086; 99283; 99284

== ENCOUNTER 2023-06-29 12:36 | Emergency (ER) | payer OTHER, SELFPAY ==
--- NOTE | ~2023-06-29 | XR_ITS ---
EXAMINATION: XR CHEST CLINICAL INFORMATION: Shortness of breath COMPARISON: Chest x-ray May 07, 2023 TECHNIQUE: Frontal view of the chest was obtained. FINDINGS: Cardiac silhouette is normal in size. The lungs are well aerated. There is no lobar consolidation. No pleural effusion or pneumothorax. XR/XR chest 1V IMPRESSION: No acute pulmonary pathology.
--- NOTE | 2023-06-29 12:37 | ECG_ITS ---
Test Reason : CHEST PAIN Blood Pressure : / mmHG Vent. Rate : 085 BPM Atrial Rate : 085 BPM P-R Int : 148 ms QRS Dur : 080 ms QT Int : 356 ms P-R-T Axes : 016 036 005 degrees QTc Int : 423 ms Normal sinus rhythm Normal ECG When compared with ECG of 18-NOV-2022 14:27, No significant change was found Referred By: Estefany Lal Electronically Signed By:NIDIA TANG
[2023-06-29 12:54] VITALS: BP 160/86; PULSE 78; RESP 18; TEMP 36.3; O2SAT 99; BMI 48.8
--- NOTE | 2023-06-29 12:55 | ED_ITS ---
HPI - General Adult General Chief complaint: Chest Pain Stated complaint: chest pain diff breathing Related Data Home Medications Medication Instructions Recorded Confirmed albuterol sulfate 90 mcg/actuation 2 puff inhalation Q4H PRN 01/06/21 01/06/21 aerosol inhaler Shortness Of Breath Previous Rx's Medication Instructions Recorded lamotrigine 25 mg tablet See Rx Instructions .Route 01/16/21 .COMPLEX 14 days #21 tabs benzonatate 100 mg capsule 100 mg PO TID PRN cough #15 caps 01/19/21 (Servando Bryant) prednisone 20 mg tablet 40 mg (2 x 20 mg) PO DAILY #10 tabs 01/19/21 acetaminophen 500 mg capsule 500 mg PO Q6H PRN fever or pain 05/07/23 #20 caps cefuroxime axetil 500 mg tablet 500 mg PO BID #13 tabs 05/07/23 ibuprofen 600 mg tablet 600 mg PO Q8H PRN fever or pain 05/07/23 #20 tabs cefuroxime axetil 250 mg tablet 250 mg PO BID 7 days #14 tabs 07/03/23 ondansetron 4 mg disintegrating 4 mg PO Q8H 3 days #9 tabs 10/20/23 tablet Allergies Allergy/AdvReac Type Severity Reaction Status Date / Time latex [LATEX] Allergy Intermediate HIVES Verified 10/20/23 08:59 vancomycin [VANCOMYCIN] Allergy Intermediate HIVES Verified 10/20/23 08:59 shrimp Allergy Anaphylaxis Verified 10/20/23 08:59 lorazepam AdvReac Hallucinati Verified 10/20/23 12:13 ons [facility] Past Medical History Medical History Abdominal tumor TIA (transient ischemic attack) Liver cancer Asthma Ovarian cancer Surgical History Hx of removal of ovary Social History Social History Household Members: Family Alcohol intake: never Smoked in Last 30 Days: No Use of substances other than those prescribed or required for medical reasons: No Advance Directives: No Advance Directives Information Provided: No Patient : No Physical Exam ED Vital Signs: BMI result Body Mass Index 48.8 Course Course Course Narrative: This is an RME: Additional HPI, ROS, PE not included below will be deferred to primary provider. 27 yo F presents w/ cp, sob, near syncope X 3 days. Hx of ovarian cancer, bipolar d/o, TIA. Plan- labs, dimer, trop, ekg Medical Decision Making Lab Data 06/29/23 12:54 06/29/23 12:54 Labs: Lab Results 06/29/23 06/29/23 Range/Units 12:54 15:06 WBC 7.9 (4.8-10.8) X10*3/uL RBC 4.69 (4.20-5.50) X10*6/uL Hgb 11.9 L (12.0-16.0) g/dl Hct 37.3 (37.0-47.0) % MCV 79.5 L (80.0-98.0) fL MCH 25.4 L (27.0-33.0) pg MCHC 31.9 (31.0-35.0) g/dl RDW 14.9 (11.0-16.0) % Plt Count 405 H (160-400) X10*3/uL MPV 9.5 (9.4-12.3) fL Immature Gran % (Auto) 0.6 H (0.0-0.4) % Neut % (Auto) 60.5 (45-73) % Lymph % (Auto) 29.3 (20-40) % [place] % (Auto) 7.3 (2-11) % Eos % (Auto) 1.9 (0-4) % Baso % (Auto) 0.4 (0-2) % Lymph # (Auto) 2.3 (1.2-4.9) X10*3/uL [place] # (Auto) 0.6 (0.1-1.2) X10*3/uL Eos # (Auto) 0.2 (0.0-0.4) X10*3/uL Baso # (Auto) 0.0 (0.0-0.2) X10*3/uL Abs Immat Gran (auto) 0.05 H (0.00-0.03) X10*3/uL Absolute Neuts (auto) 4.8 (2.0-8.3) x10*3/uL Absolute Nucleated RBC 0.000 (0.0-0.012) X10*3/uL Nucleated RBC % (auto) 0.0 (0.0-0.2) /100WBC D-Dimer High Sensitivty < 150 NG/ML Sodium 141 (135-145) mmol/L Potassium 3.8 (3.3-5.1) mmol/L Chloride 110 H (96-108) mmol/L Carbon Dioxide 25 (22-29) mmol/L Anion Gap 10 L (12-20) BUN 12 (9-16) mg/dL Creatinine 0.64 (0.5-1.4) mg/dL Estim Creat Clear Calc 183.7 Estimated GFR > 60 Random Glucose 103 (60-115) mg/dL Calcium 9.2 (8.4-10.2) mg/dL Magnesium 2.1 (1.6-2.6) mg/dL Total Bilirubin 0.5 (0.0-1.0) mg/dL AST 15 (5-31) U/L ALT 12 (0-31) U/L Alkaline Phosphatase 41 (39-117) U/L Troponin I High Sens < 2.7 (<3.5-17.0) ng/L B-Natriuretic Peptide 26 (<100) pg/mL Total Protein 6.7 (6.5-8.0) g/dL Albumin 3.7 (3.5-5.0) g/dL Urine Color Yellow Urine Appearance Clear Urine pH 6.5 (5.0-9.0) Ur Specific [place] 1.025 (1.005-1.025) Urine Protein Negative (Neg-Trace) mg/dL Urine Glucose (UA) Negative (Negative) mg/dL Urine Ketones Negative (Negative) mg/dL Urine Blood Negative (Negative) Urine Nitrite Negative (Negative) Ur Leukocyte Esterase Small (1+) H (Negative) Urine RBC 0-2 (0-2) /HPF Urine WBC 0-5 (0-5) /HPF Ur Squamous Epith Cells 3-5 (0-2) /HPF Urine Bacteria Trace (None Seen) Hyaline Casts 0-2 (0-2) /LPF Discharge Plan Discharge Clinical Impression: Chest pain Patient Disposition: Elopement Prescriptions: No Action albuterol sulfate 90 mcg/actuation Hfa Aerosol Inhaler 2 puff INHALATION Q4H PRN (Reason: Shortness Of Breath) lamotrigine 25 mg tablet See Rx Instructions .ROUTE .COMPLEX 14 Days Qty: 21 0RF Rx Instructions: Take 1 tab PO daily x 7 days, then 1 tab PO twice a day prednisone 20 mg tablet 40 mg PO DAILY Qty: 10 0RF benzonatate [Tessalon Perles] 100 mg capsule 100 mg PO TID PRN (Reason: cough) Qty: 15 0RF cefuroxime axetil 500 mg tablet 500 mg PO BID Qty: 13 0RF acetaminophen 500 mg capsule 500 mg PO Q6H PRN (Reason: fever or pain) Qty: 20 0RF ibuprofen 600 mg tablet 600 mg PO Q8H PRN (Reason: fever or pain) Qty: 20 0RF cefuroxime axetil 250 mg tablet 250 mg PO BID 7 Days Qty: 14 0RF ondansetron 4 mg tablet,disintegrating 4 mg PO Q8H 3 Days Qty: 9 0RF Discharge Date/Time: 06/29/23 17:17
[2023-06-29 13:15] LABS: Basophils Percent Auto 0.4 % (0-2); Eosinophils Absolute Auto 0.2 X10*3/uL (0.0-0.4); Eosinophils Percent Auto 1.9 % (0-4); Hematocrit 37.3 % (37.0-47.0); Hemoglobin 11.9 g/dl (12.0-16.0); Imm Gran Abs Auto 0.05 X10*3/uL (0.00-0.03); Imm Gran Pct Auto 0.6 % (0.0-0.4); Lymphocytes Absolute Auto 2.3 X10*3/uL (1.2-4.9); Lymphocytes Percent Auto 29.3 % (20-40); MANUAL DIFF FLAG NO; Mean Corpuscular HGB Conc 31.9 g/dl (31.0-35.0); Mean Corpuscular Hemoglobin 25.4 pg (27.0-33.0); Mean Corpuscular Volume 79.5 fL (80.0-98.0); Mean Platelet Volume 9.5 fL (9.4-12.3); Monocytes Absolute Auto 0.6 X10*3/uL (0.1-1.2); Monocytes Percent Auto 7.3 % (2-11); Neutrophils Absolute Auto 4.8 x10*3/uL (2.0-8.3); Neutrophils Percent Auto 60.5 % (45-73); Platelet Count 405 X10*3/uL (160-400); Red Blood Count 4.69 X10*6/uL (4.20-5.50); Red Cell Distribution Width 14.9 % (11.0-16.0); White Blood Count 7.9 X10*3/uL (4.8-10.8)
[2023-06-29 13:21] LABS: Alanine Aminotransferase 12 U/L (0-31); Albumin Level 3.7 g/dL (3.5-5.0); Alkaline Phosphatase 41 U/L (39-117); Anion Gap 10 (12-20); Aspartate Amino Transferase 15 U/L (5-31); Bilirubin Total 0.5 mg/dL (0.0-1.0); Blood Urea Nitrogen 12 mg/dL (9-16); Calcium 9.2 mg/dL (8.4-10.2); Carbon Dioxide 25 mmol/L (22-29); Chloride 110 mmol/L (96-108); Creatinine Clr Calc Pharmacy 183.7; Estimated Glomerular Filt Rate > 60; Glucose Random 103 mg/dL (60-115); Magnesium 2.1 mg/dL (1.6-2.6); Potassium 3.8 mmol/L (3.3-5.1); Sodium 141 mmol/L (135-145); Total Protein 6.7 g/dL (6.5-8.0)
[2023-06-29 13:22] LABS: D Dimer High Sensitivity < 150 NG/ML
[2023-06-29 13:50] LABS: Troponin-I High Sensitivity < 2.7 ng/L (<3.5-17.0)
[2023-06-29 14:58] LABS: B Type Natriuretic Peptide 26 pg/mL (<100)
[2023-06-29 15:14] LABS: Appearance Urine Clear; Color Urine Yellow; Glucose Urine UA Negative (Negative); Leukocyte Esterase Urine Small (1+) (Negative); Nitrite Urine Negative (Negative); PH 6.5 (5.0-9.0); Specific Gravity - Urine 1.025 (1.005-1.025); UMIC TRIGGER UACC YES; Urine Blood Negative (Negative); Urine Ketones Negative (Negative); Urine Protein Negative (Neg-Trace)
[2023-06-29 15:23] LABS: Bacteria Urine Trace (None Seen); Hyaline Casts Urine 0-2 /LPF (0-2); RBC Urine 0-2 /HPF (0-2); UACC Culture Trigger YES; WBC Urine 0-5 /HPF (0-5)
== END 2023-06-29 17:17 | disposition left against medical advice (07) ==
PROVIDERS: Physician Assistant; Emergency Provider Emergency Medicine; PCP Internal Medicine
DX: R07.89 Other chest pain (principal); R06.02 Shortness of breath; Z79.899 Other long term (current) drug therapy
CPT/HCPCS: 36415; 71045; 80053; 81001; 83735; 83880; 84484; 85025; 85379; 87086; 93005; 99283

== ENCOUNTER 2023-07-02 15:56 | Emergency (ER) | payer OTHER, SELFPAY ==
--- NOTE | ~2023-07-02 | XR_ITS ---
EXAMINATION: XR CHEST CLINICAL INFORMATION: Chest pain. COMPARISON: 05/07/2023 TECHNIQUE: 2 views of the chest were obtained. FINDINGS: The lungs are well expanded. No focal consolidation. No pleural effusion. Cardiac silhouette is unchanged. XR/XR chest 2V IMPRESSION: No acute abnormality.
--- NOTE | ~2023-07-02 | CT_ITS ---
EXAMINATION: CT ABDOMEN AND PELVIS WITHOUT CONTRAST CLINICAL INFORMATION: Flank pain. COMPARISON: Correlation made with chest CT performed 10/26/2020 TECHNIQUE: Multidetector volumetric imaging was performed from the superior aspect of the liver through the pubic symphysis. Sagittal and coronal reformatted images were obtained on the technologist's workstation. This CT examination was performed using dose optimization techniques as appropriate, variously including the following: *Automated exposure control *Adjustment of mA and/or kV according to patient size (this includes techniques or standardized protocols for targeted exams where dose is matched to indication/reason for exam; i.e. extremities or head) *Use of iterative reconstruction technique DLP: 990 mGy-cm FINDINGS: LUNG BASES: The visualized lung bases are unremarkable. LIVER, GALLBLADDER, AND BILIARY TREE: There is a mostly fatty tumor within the right lobe the liver measuring 5.4 cm with some apparent calcification and small areas of soft tissue density. The gallbladder is unremarkable with no evidence of radiopaque gallstones, gallbladder wall thickening, or obvious pericholecystic inflammatory changes. PANCREAS: Unremarkable. SPLEEN: Unremarkable. ADRENAL GLANDS: Unremarkable. KIDNEYS AND URETERS: The kidneys are normal in size, shape, and attenuation. No hydronephrosis, hydroureter, or calculi seen. No perinephric stranding. BLADDER: Unremarkable. GASTROINTESTINAL TRACT: The small and large bowel are unremarkable. The appendix is unremarkable. ABDOMINAL WALL: No significant hernia is appreciated. LYMPH NODES: Nonspecific retroperitoneal lymph nodes measuring up to 1 cm. VASCULAR: Unremarkable. PELVIC VISCERA: There is a mostly fatty tumor within the right adnexa covering an area approximately 12 x 4.5 x 8 cm. There is a 4.6 cm soft tissue structure within the left adnexa abutting the sigmoid colon inferiorly ureters. There is a 2.2 cm possible lymph node within the left iliac region. OSSEOUS STRUCTURES: Unremarkable. CT/CT abdomen pelvis wo IV con IMPRESSION: Stable mostly fatty tumor within the liver measuring 5.4 cm. There is also a similar large mostly fatty tumor within the right adnexa with scattered soft tissue components measuring 12 x 4.5 x 8 cm which suggests a dermoid. There is a 4.6 cm soft tissue structure within the left pelvis along the sigmoid colon and inferior uterus possibly an enlarged left ovary versus ovarian tumor. There is an adjacent apparent 2.2 cm lymph node. Recommend follow-up ultrasound and/or MRI. No acute intra-abdominal process Fleischner guidelines were followed.
[2023-07-02 16:39] VITALS: BP 146/88; PULSE 102; RESP 18; TEMP 38.2; O2SAT 98; BMI 48.9
--- NOTE | 2023-07-02 16:46 | ED_ITS ---
HPI - General Adult General Chief complaint: General Medical Stated complaint: fever, not breaking Time Seen by Provider: 07/02/23 23:17 Source: patient and RN notes reviewed Mode of arrival: ambulatory Limitations: no limitations History of Present Illness HPI narrative: This is a 27-year-old female, with a past medical history of ovarian cancer, bipolar disorder, and asthma presenting to the emergency department with complaints of fevers, generalized body aches and abdominal pain x 1 day. Patient reports that 2 nights ago at 10:00 p.m. she suddenly developed 103 degree fever. She has had diffuse body aches, abdominal pain since. She has been taking Tylenol at home which has provided her with some relief. She denies any chest chest pain or shortness of breath. She does endorse some urinary frequency urgency and suprapubic pain with urination. Patient reports that last week she was [facility], unsure of any tick bites. She states that her ovarian cancer was diagnosed in 2008 and is nonoperable and untreatable. No other complaints or concerns at this time. MD complaint: Fever Onset (ago): day(s) Radiation: non-radiation Quality: aching Pain Consistency: constant Relieving factors: none Exacerbating factors: none Associated symptoms: denies other symptoms Treatments prior to arrival: none Related Data Home Medications Medication Instructions Recorded Confirmed albuterol sulfate 90 mcg/actuation 2 puff inhalation Q4H PRN 01/06/21 01/06/21 aerosol inhaler Shortness Of Breath Previous Rx's Medication Instructions Recorded lamotrigine 25 mg tablet See Rx Instructions .Route 01/16/21 .COMPLEX 14 days #21 tabs benzonatate 100 mg capsule 100 mg PO TID PRN cough #15 caps 01/19/21 (Servando Bryant) prednisone 20 mg tablet 40 mg (2 x 20 mg) PO DAILY #10 tabs 01/19/21 acetaminophen 500 mg capsule 500 mg PO Q6H PRN fever or pain 05/07/23 #20 caps cefuroxime axetil 500 mg tablet 500 mg PO BID #13 tabs 05/07/23 ibuprofen 600 mg tablet 600 mg PO Q8H PRN fever or pain 05/07/23 #20 tabs cefuroxime axetil 250 mg tablet 250 mg PO BID 7 days #14 tabs 07/03/23 Allergies Allergy/AdvReac Type Severity Reaction Status Date / Time latex [LATEX] Allergy Intermediate HIVES Verified 07/02/23 16:39 vancomycin [VANCOMYCIN] Allergy Intermediate HIVES Verified 07/02/23 16:39 shrimp Allergy Anaphylaxis Verified 07/02/23 16:39 Review of Systems 2 Review of Systems: Yes all other systems are reviewed and are negative Constitutional: Constitutional: Reports as per [facility] Past Medical History Medical History Abdominal tumor Asthma Liver cancer Ovarian cancer TIA (transient ischemic attack) Surgical History Hx of removal of ovary Social History Social History Household Members: Family Alcohol intake: never Smoked in Last 30 Days: No Use of substances other than those prescribed or required for medical reasons: No Advance Directives: No Advance Directives Information Provided: No Patient : No Physical Exam ED Vital Signs: Vital Signs - 24 hr 07/02/23 16:39 07/02/23 22:00 07/03/23 00:32 Temperature 100.8 F H 98.9 F 98.6 F Pulse Rate 102 H 98 85 Respiratory Rate 18 18 18 Blood Pressure 146/88 H 140/86 H 140/81 H Pulse Oximetry 98 98 97 Oxygen Delivery Method Room Air Room Air Room Air BMI result Body Mass Index 48.9 Const General: cooperative, comfortable and no acute distress Orientation/consciousness: patient oriented x3 Limitations: no limitations [facility] Head: Yes normal to inspection, Yes normocephalic and Yes atraumatic Ears: hearing grossly normal bilaterally General nose exam: Normal external nose present Face and sinus: Yes normal facial exam Mouth: Normal oral and palatal mucosa present, oropharynx normal and moist mucous membranes Throat: Yes posterior oropharynx normal Eyes General: appearance normal, both eyes and all related structures Eyelids: Yes eyelids normal Conjunctivae: conjunctivae normal Sclerae: sclerae normal Pupils: Equal, round and reactive pupils present EOM: EOMs intact bilaterally Neck Neck: Yes normal visual inspection, Yes full ROM and Yes no lymphadenopathy Lymphatic: no lymphadenopathy noted Chest Chest palpation & inspection: normal inspection of the chest Resp Effort & Inspection: normal respiratory effort and able to speak in complete sentences Auscultation: clear to auscultation bilaterally, no crackles, no rales, no rhonchi and no wheezes Cardio Rate: regular rate Rhythm: regular rhythm Heart sounds: S1 normal heart sound present and S2 normal heart sound present GI Inspection: Yes normal to inspection Skin General skin exam: no rashes or lesions noted Trauma: no lacerations or abrasions Wounds: no wounds Neuro General: patient oriented x3 and moves all extremities Cranial nerves: Yes Equal, round and reactive pupils present Extrem General: Yes normal to inspection Right upper extremity: normal to inspection Left upper extremity: normal to inspection Right lower extremity: normal to inspection Left lower extremity: normal to inspection Course Course Course Narrative: RME- 27-year-old female presents for evaluation of fever since last night. Also complains of chest tightness and abdominal pain. She is febrile to 100.8. She took Tylenol 2 hours ago. Plan for labs, chest x-ray, UA blood cultures Reevaluation(s) Reevaluation #1: Urine appears to be infected, CT scan with fatty tumor on the right adnexa and soft tissue structure within the left pelvis concerning for left ovarian tumor versus ovary, patient is aware of these findings. Advised to follow-up with her primary care physician and specialists that are managing this. Will treat for urinary tract infection. Discussed return precautions. Patient understands and agrees with plan. Patient stable for discharge. Medications Administered Discontinued Medications Generic Name Dose Route Start Last Admin Trade Name Freq PRN Reason Stop Dose Admin Acetaminophen 975 mg 07/03/23 00:45 07/03/23 01:08 Acetaminophen 325 Mg Tablet PO 07/03/23 00:46 975 mg ONCE ONE Administration Cefuroxime Axetil 250 mg 07/03/23 02:40 07/03/23 02:56 Cefuroxime Axetil 250 Mg Tablet PO 07/03/23 02:41 250 mg ONCE ONE Administration Medical Decision Making Medical Decision Making [facility] Narrative: 27-year-old female presenting to the emergency department with complaints of fevers x1 day. On arrival, patient fat be febrile at 100.8, mildly tachycardic 102, blood pressure 146/88. Labs were obtained at that time, no lactic acidosis, no leukocytosis. Urine with small blood and small leuks. Patient does urinary symptoms concern for nephrolithiasis. Given CVA tenderness on examination and urine findings, obtain CT scan for further evaluation. Also obtained tick-borne illnesses given recent camping trip, no known tick bites however given fever, will draw Differential Diagnosis Differential Diagnoses: The differential diagnosis associated with the presentation includes UTI, nephrolithiasis, tick-borne illness, COVID, pneumonia Admission/Observation Consideration of admission/observation: Escalation of care including admission/observation considered Patient would have been admitted to the hospital had her work up had any findings where hospital admission was appropriate and her clinical presentation warranted hospital admission. Lab Data MDM Lab Attestation statement: I reviewed the patient's lab results. See above 07/02/23 17:34 07/02/23 17:34 Labs: Lab Results 07/02/23 07/02/23 07/03/23 Range/Units 17:34 22:43 01:26 WBC 8.6 (4.8-10.8) X10*3/uL RBC 4.97 (4.20-5.50) X10*6/uL Hgb 12.7 (12.0-16.0) g/dl Hct 38.3 (37.0-47.0) % MCV 77.1 L (80.0-98.0) fL MCH 25.6 L (27.0-33.0) pg MCHC 33.2 (31.0-35.0) g/dl RDW 15.0 (11.0-16.0) % Plt Count 381 (160-400) X10*3/uL MPV 9.2 L (9.4-12.3) fL Immature Gran % (Auto) 0.3 (0.0-0.4) % Neut % (Auto) 72.2 (45-73) % Lymph % (Auto) 16.1 L (20-40) % Lamb % (Auto) 10.3 (2-11) % Eos % (Auto) 0.9 (0-4) % Baso % (Auto) 0.2 (0-2) % Lymph # (Auto) 1.4 (1.2-4.9) X10*3/uL Lamb # (Auto) 0.9 (0.1-1.2) X10*3/uL Eos # (Auto) 0.1 (0.0-0.4) X10*3/uL Baso # (Auto) 0.0 (0.0-0.2) X10*3/uL Abs Immat Gran (auto) 0.03 (0.00-0.03) X10*3/uL Absolute Neuts (auto) 6.2 (2.0-8.3) x10*3/uL Absolute Nucleated RBC 0.000 (0.0-0.012) X10*3/uL Nucleated RBC % (auto) 0.0 (0.0-0.2) /100WBC Sodium 133 L (135-145) mmol/L Potassium 3.7 (3.3-5.1) mmol/L Chloride 102 (96-108) mmol/L Carbon Dioxide 23 (22-29) mmol/L Anion Gap 12 (12-20) BUN 13 (9-16) mg/dL Creatinine 0.81 (0.5-1.4) mg/dL Estim Creat Clear Calc 145.4 Estimated GFR > 60 Random Glucose 95 (60-115) mg/dL Lactic Acid 0.7 (0.5-2.0) mmol/L Calcium 10.1 D (8.4-10.2) mg/dL Total Bilirubin 0.9 (0.0-1.0) mg/dL AST 16 (5-31) U/L ALT 11 (0-31) U/L Alkaline Phosphatase 44 (39-117) U/L Total Protein 7.4 (6.5-8.0) g/dL Albumin 4.0 (3.5-5.0) g/dL Lipase 11 (8-78) U/L Urine Color Yellow Urine Appearance Clear Urine pH 5.5 (5.0-9.0) Ur Specific [place] >= 1.030 H (1.005-1.025) Urine Protein Negative (Neg-Trace) mg/dL Urine Glucose (UA) Negative (Negative) mg/dL Urine Ketones Negative (Negative) mg/dL Urine Blood Small (1+) H (Negative) Urine Nitrite Negative (Negative) Ur Leukocyte Esterase Small (1+) H (Negative) Urine RBC 0-2 (0-2) /HPF Urine WBC 0-5 (0-5) /HPF Ur Squamous Epith Cells 0-2 (0-2) /HPF Urine Bacteria None Seen (None Seen) Hyaline Casts 0-2 (0-2) /LPF A. phagocytophilum IgG <1:64 (<1:64) A. phagocytophilum IgM <1:20 (<1:20) A.phagocytophilum Intrp A. phagocytophilum Cmmt See Below Babesia microti IgG Ab <1:64 (<1:64) titer Babesia microti IgM Ab <1:20 (<1:20) titer Babesia Interpretation SEE NOTE Lyme Screen IgG & IgM <0.90 index Lyme Progressive Test TNP E. chaffeensis IgG Ab <1:64 (<1:64) E. chaffeensis IgM Ab <1:20 (<1:20) E. chaffeensis Interp E. chaffeensis Comment See Below Influenza Type A (PCR) NEGATIVE (Negative) Influenza Type B (PCR) NEGATIVE (Negative) RSV RNA Qual (PCR) NEGATIVE (Negative) SARS-CoV-2 RNA (RT-PCR) NEGATIVE (Negative) Radiology Impression Discussion of test interpretation with radiology: I have reviewed the radiologist's reading. Radiologist Impression: EXAMINATION: XR CHEST CLINICAL INFORMATION: Chest pain. COMPARISON: 05/07/2023 TECHNIQUE: 2 views of the chest were obtained. FINDINGS: The lungs are well expanded. No focal consolidation. No pleural effusion. Cardiac silhouette is unchanged. XR/XR chest 2V IMPRESSION: No acute abnormality. Dictated By: Ajay Ivey MD Discharge Plan Discharge Clinical Impression: Urinary tract infection Patient Disposition: Home, Self-Care Instructions: Urinary Tract Infection in Women (ED) Additional Instructions: Your CT scan does not show any kidney stones. Your left ovarian tumor was seen on CT scan. This was measuring 4.6 cm. The radiologist recommends follow-up ultrasound or MRI. Please do this your primary care physician. We tested your blood for tick-borne illnesses, if any of these are positive will give you a call. Your urine appears to be slightly infected, please take prescribed antibiotic as directed. Finish the entire course even if you are feeling better. Drink plenty of fluids and get plenty of rest. If any new or worsening symptoms occur, please return for re-evaluation. Prescriptions: New cefuroxime axetil 250 mg tablet 250 mg PO BID 7 Days Qty: 14 0RF No Action albuterol sulfate 90 mcg/actuation Hfa Aerosol Inhaler 2 puff INHALATION Q4H PRN (Reason: Shortness Of Breath) lamotrigine 25 mg tablet See Rx Instructions .ROUTE .COMPLEX 14 Days Qty: 21 0RF Rx Instructions: Take 1 tab PO daily x 7 days, then 1 tab PO twice a day prednisone 20 mg tablet 40 mg PO DAILY Qty: 10 0RF benzonatate [Tessalon Perles] 100 mg capsule 100 mg PO TID PRN (Reason: cough) Qty: 15 0RF cefuroxime axetil 500 mg tablet 500 mg PO BID Qty: 13 0RF acetaminophen 500 mg capsule 500 mg PO Q6H PRN (Reason: fever or pain) Qty: 20 0RF ibuprofen 600 mg tablet 600 mg PO Q8H PRN (Reason: fever or pain) Qty: 20 0RF Interventions: ED Discharge Assessment Last Done: 07/03/23 03:00 Discharge Date/Time: 07/03/23 03:01
[2023-07-02 17:41] LABS: MANUAL DIFF FLAG NO
[2023-07-02 17:43] LABS: Basophils Percent Auto 0.2 % (0-2); Eosinophils Absolute Auto 0.1 X10*3/uL (0.0-0.4); Eosinophils Percent Auto 0.9 % (0-4); Hematocrit 38.3 % (37.0-47.0); Hemoglobin 12.7 g/dl (12.0-16.0); Imm Gran Abs Auto 0.03 X10*3/uL (0.00-0.03); Imm Gran Pct Auto 0.3 % (0.0-0.4); Lymphocytes Absolute Auto 1.4 X10*3/uL (1.2-4.9); Lymphocytes Percent Auto 16.1 % (20-40); Mean Corpuscular HGB Conc 33.2 g/dl (31.0-35.0); Mean Corpuscular Hemoglobin 25.6 pg (27.0-33.0); Mean Corpuscular Volume 77.1 fL (80.0-98.0); Mean Platelet Volume 9.2 fL (9.4-12.3); Monocytes Absolute Auto 0.9 X10*3/uL (0.1-1.2); Monocytes Percent Auto 10.3 % (2-11); Neutrophils Absolute Auto 6.2 x10*3/uL (2.0-8.3); Neutrophils Percent Auto 72.2 % (45-73); Platelet Count 381 X10*3/uL (160-400); Red Blood Count 4.97 X10*6/uL (4.20-5.50); White Blood Count 8.6 X10*3/uL (4.8-10.8)
[2023-07-02 17:52] LABS: Lactic Acid 0.7 mmol/L (0.5-2.0)
[2023-07-02 17:57] LABS: Alanine Aminotransferase 11 U/L (0-31); Alkaline Phosphatase 44 U/L (39-117); Anion Gap 12 (12-20); Aspartate Amino Transferase 16 U/L (5-31); Bilirubin Total 0.9 mg/dL (0.0-1.0); Blood Urea Nitrogen 13 mg/dL (9-16); Calcium 10.1 mg/dL (8.4-10.2); Carbon Dioxide 23 mmol/L (22-29); Chloride 102 mmol/L (96-108); Creatinine Clr Calc Pharmacy 145.4; Estimated Glomerular Filt Rate > 60; Glucose Random 95 mg/dL (60-115); Lipase 11 U/L (8-78); Potassium 3.7 mmol/L (3.3-5.1); Sodium 133 mmol/L (135-145); Total Protein 7.4 g/dL (6.5-8.0)
[2023-07-02 18:19] LABS: Influenza A PCR NEGATIVE (Negative); Influenza B PCR NEGATIVE (Negative); Resp Syncy Virus RNA Qual PCR NEGATIVE (Negative); SARS COV2 PCR INHOUSE NEGATIVE (Negative)
[2023-07-02 22:00] VITALS: BP 140/86; PULSE 98; RESP 18; TEMP 37.2; O2SAT 98
[2023-07-02 22:58] LABS: Appearance Urine Clear; Color Urine Yellow; Glucose Urine UA Negative (Negative); Leukocyte Esterase Urine Small (1+) (Negative); Nitrite Urine Negative (Negative); PH 5.5 (5.0-9.0); Specific Gravity - Urine >= 1.030 (1.005-1.025); UMIC TRIGGER UACC YES; Urine Blood Small (1+) (Negative); Urine Ketones Negative (Negative); Urine Protein Negative (Neg-Trace)
[2023-07-02 23:07] LABS: Bacteria Urine None Seen (None Seen); Hyaline Casts Urine 0-2 /LPF (0-2); RBC Urine 0-2 /HPF (0-2); Squamous Epithelial Cell Urine 0-2 /HPF (0-2); UACC Culture Trigger YES; WBC Urine 0-5 /HPF (0-5)
[2023-07-03 00:32] VITALS: BP 140/81; PULSE 85; RESP 18; TEMP 37; O2SAT 97
[2023-07-03] MEDS: Acetaminophen 325 MG TABLET 975 MG PO (01:08)
[2023-07-03 02:59] VITALS: BP 138/80; PULSE 89; RESP 16; TEMP 37.2; O2SAT 98
[2023-07-05 19:48] LABS: Lyme Abs Screen <0.90 index
[2023-07-07 13:49] LABS: A. Phagocytophilum Ab IgG <1:64 (<1:64); A. Phagocytophilum Ab IgM <1:20 (<1:20); E. Chaffeensis Ab IgG <1:64 (<1:64); E. Chaffeensis Ab IgM <1:20 (<1:20)
[2023-07-07 14:04] LABS: Babesia IgG <1:64 titer (<1:64); Babesia IgM <1:20 titer (<1:20)
== END 2023-07-03 03:01 | disposition home or self-care (01) ==
PROVIDERS: Physician Assistant; Physician Assistant Medical; Emergency Provider Emergency Medicine; PCP Internal Medicine
DX: N39.0 Urinary tract infection, site not specified (principal); R50.9 Fever, unspecified; Z20.822 Contact with and (suspected) exposure to COVID-19; Z20.828 Contact with and (suspected) exposure to other viral communicable diseases; E66.9 Obesity, unspecified; Z68.42 Body mass index [BMI] 45.0-49.9, adult; C56.9 Malignant neoplasm of unspecified ovary; C22.9 Malignant neoplasm of liver, not specified as primary or secondary; D49.59 Neoplasm of unspecified behavior of other genitourinary organ; Z86.73 Personal history of transient ischemic attack (TIA), and cerebral infarction without residual deficits
CPT/HCPCS: 0241U; 36415; 71046; 74176; 80053; 81001; 83605; 83690; 85025; 86617; 86618; 86666; 86753; 87040; 87086; 99284

== ENCOUNTER 2023-10-20 08:50 | Emergency (ER) | payer OTHER, SELFPAY ==
--- NOTE | 2023-10-20 | ECG_ITS ---
Test Reason : cp Blood Pressure : / mmHG Vent. Rate : 096 BPM Atrial Rate : 096 BPM P-R Int : 124 ms QRS Dur : 074 ms QT Int : 334 ms P-R-T Axes : 009 032 008 degrees QTc Int : 421 ms Normal sinus rhythm Normal ECG When compared with ECG of 29-JUN-2023 12:45, No significant change was found Referred By: Generic ED Physician Electronically Signed By:SONIA FERNANDEZ
--- NOTE | ~2023-10-20 | XR_ITS ---
EXAMINATION: XR CHEST CLINICAL INFORMATION: Shortness of breath COMPARISON: 07/02/2023 TECHNIQUE: 2 views of the chest were obtained. FINDINGS: Lungs clear. No pleural effusion. Heart and pulmonary vessels normal. XR/XR chest 2V IMPRESSION: No active disease.
[2023-10-20 08:59] VITALS: BP 140/81; PULSE 104; RESP 18; TEMP 36.9; O2SAT 98; BMI 50.4
[2023-10-20 09:54] LABS: Anion Gap 14 (12-20); Blood Urea Nitrogen 10 mg/dL (9-16); Calcium 9.2 mg/dL (8.4-10.2); Carbon Dioxide 19 mmol/L (22-29); Chloride 103 mmol/L (96-108); Creatinine Clr Calc Pharmacy 172.4; Estimated Glomerular Filt Rate > 60; Glucose Random 100 mg/dL (60-115); Potassium 3.9 mmol/L (3.3-5.1); Sodium 132 mmol/L (135-145)
[2023-10-20 09:59] LABS: Troponin-I High Sensitivity < 2.7 ng/L (<3.5-17.0)
[2023-10-20 10:16] LABS: Influenza A PCR NEGATIVE (Negative); Influenza B PCR NEGATIVE (Negative); Resp Syncy Virus RNA Qual PCR NEGATIVE (Negative); SARS COV2 PCR INHOUSE NEGATIVE (Negative)
[2023-10-20 11:14] LABS: Basophils Percent Auto 0.3 % (0-2); Eosinophils Absolute Auto 0.1 X10*3/uL (0.0-0.4); Hematocrit 37.7 % (37.0-47.0); Hemoglobin 12.1 g/dl (12.0-16.0); Imm Gran Abs Auto 0.05 X10*3/uL (0.00-0.03); Imm Gran Pct Auto 0.5 % (0.0-0.4); Lymphocytes Percent Auto 9.6 % (20-40); Mean Corpuscular HGB Conc 32.1 g/dl (31.0-35.0); Mean Corpuscular Hemoglobin 25.3 pg (27.0-33.0); Mean Corpuscular Volume 78.9 fL (80.0-98.0); Monocytes Absolute Auto 0.8 X10*3/uL (0.1-1.2); Neutrophils Absolute Auto 8.4 x10*3/uL (2.0-8.3); Neutrophils Percent Auto 80.6 % (45-73); Platelet Count 396 X10*3/uL (160-400); Red Blood Count 4.78 X10*6/uL (4.20-5.50); Red Cell Distribution Width 15.3 % (11.0-16.0); White Blood Count 10.4 X10*3/uL (4.8-10.8)
--- NOTE | 2023-10-20 11:30 | ED.CHESTPAIN ---
HPI - Chest Pain General Chief Complaint: Chest Pain Stated Complaint: Chest pain, pain in left side of body, fever Time Seen by Provider: 10/20/23 11:28 Source: patient Mode of arrival: ambulatory Limitations: no limitations History of Present Illness HPI narrative: Patient is a 28 year old assigned female at with a history of asthma, liver cancer, and ovarian cancer (diagnosed at [facility]) presenting to the emergency department today with nausea, headache, and left sided shoulder and neck pain. Patient states that she woke up with left sided neck / shoulder pain as well as nausea and a headache. Patient states that she is not currently being treated for her cancer as it is not-curable . Patient denies any dizziness, lightheadedness, abdominal pain, vomiting, fever, chills, blurry vision, double vision, loss of vision, chest pain, difficulty breathing, shortness of breath, back pain, night sweats, pain with urination, increased urinary frequency, increased urinary urgency, blood in her urine or stool, syncope or a near syncopal episode, recent trauma or falls, bowel incontinence, bladder incontinence, bowel retention, bladder retention, or any other complaints at this time. Relieving factors: nothing Exacerbating factors: nothing Treatment prior to arrival: none Related Data Home Medications Medication Instructions Recorded Confirmed albuterol sulfate 90 mcg/actuation 2 puff inhalation Q4H PRN 01/06/21 01/06/21 aerosol inhaler Shortness Of Breath Previous Rx's Medication Instructions Recorded lamotrigine 25 mg tablet See Rx Instructions .Route 01/16/21 .COMPLEX 14 days #21 tabs benzonatate 100 mg capsule 100 mg PO TID PRN cough #15 caps 01/19/21 (Servando Bryant) prednisone 20 mg tablet 40 mg (2 x 20 mg) PO DAILY #10 tabs 01/19/21 acetaminophen 500 mg capsule 500 mg PO Q6H PRN fever or pain 05/07/23 #20 caps cefuroxime axetil 500 mg tablet 500 mg PO BID #13 tabs 05/07/23 ibuprofen 600 mg tablet 600 mg PO Q8H PRN fever or pain 05/07/23 #20 tabs cefuroxime axetil 250 mg tablet 250 mg PO BID 7 days #14 tabs 07/03/23 ondansetron 4 mg disintegrating 4 mg PO Q8H 3 days #9 tabs 10/20/23 tablet Allergies Allergy/AdvReac Type Severity Reaction Status Date / Time latex [LATEX] Allergy Intermediate HIVES Verified 10/20/23 08:59 vancomycin [VANCOMYCIN] Allergy Intermediate HIVES Verified 10/20/23 08:59 shrimp Allergy Anaphylaxis Verified 10/20/23 08:59 lorazepam AdvReac Hallucinati Verified 10/20/23 12:13 ons Review of Systems Constitutional: Constitutional: Reports no additional constitutional complaints, Denies chills, Denies fever(s), Reports headache(s) and Denies night sweats Eyes: Eyes: Reports no additional eye complaints, Denies blurry vision, Denies change in vision, Denies diplopia, Denies eye discharge, Denies loss of vision and Denies eye pain ENT: Denies dizziness, Reports headache(s) and Reports neck pain Cardiovascular: Cardiovascular: Reports no additional cardiovascular complaints, Reports chest pain, Denies lightheadedness, Denies Loss of Consciousness and Denies dyspnea Respiratory: Respiratory: Reports no additional respiratory complaints and Denies dyspnea Gastrointestinal: Gastrointestinal: Reports no additional gastrointestinal complaints, Denies abdominal pain, Denies melena, Denies hematochezia, Denies change in bowel habits, Denies change in stool character and Reports nausea Genitourinary: Genitourinary: Denies hematuria, Denies urinary frequency, Denies dysuria, Denies urinary incontinence, Denies urinary hesitancy and Denies urinary urgency Musculoskeletal: Musculoskeletal: Reports no additional musculoskeletal complaints, Reports neck pain, Denies numbness and Denies tingling Neurologic: Denies dizziness, Reports headache(s), Denies loss of vision, Denies numbness and Denies tingling Psychiatric: Psychiatric: Reports no additional psychiatric complaints Endocrine: Endocrine: Reports no additional endocrine complaints Hematologic/Lymphatic: Hematologic/Lymphatic: Reports no additional hematologic/lymphatic complaints Allergic/Immunologic: Allergic/Immunologic: Reports no additional allergic/immunologic complaints PMFSH Past Medical History Attestation statement: The following information was validated with the patient. Source: old records reviewed and nursing notes reviewed Medical History Abdominal tumor TIA (transient ischemic attack) Liver cancer Asthma Ovarian cancer Surgical History Hx of removal of ovary Social History Social History Household Members: Family Alcohol intake: never Smoked in Last 30 Days: No Use of substances other than those prescribed or required for medical reasons: No Advance Directives: No Advance Directives Information Provided: No Patient : No Physical Exam Vital Signs: Vital Signs: Last Vital Signs Temp 99.0 F 10/20/23 12:14 Pulse 86 10/20/23 12:14 Resp 16 10/20/23 12:14 BP 139/89 10/20/23 12:14 Pulse Ox 100 10/20/23 12:14 O2 Del Method Room Air 10/20/23 12:14 BMI result Body Mass Index 50.4 Const: General: cooperative, no acute distress, alert and awake Nutritional Appearance: well nourished Orientation/consciousness: patient oriented x3 Limitations: no limitations HEENT: Head: Yes normal to inspection and Yes atraumatic Ears: hearing grossly normal bilaterally and external ears normal General nose exam: Normal external nose present, no nasal discharge noted and no epistaxis Face and sinus: Yes normal facial exam, No abrasion and No laceration Mouth: Normal oral and palatal mucosa present, no drooling and no muffled voice Eyes: General: appearance normal, both eyes and all related structures Periorbital: periorbital findings normal Eyelids: Yes eyelids normal Conjunctivae: conjunctivae normal Pupils: Equal, round and reactive pupils present EOM: EOMs intact bilaterally Neck: Neck: Yes normal visual inspection, Yes full ROM and Yes no lymphadenopathy Chest: Chest palpation & inspection: normal inspection of the chest Resp: Effort & Inspection: normal respiratory effort and able to speak in complete sentences GI: Inspection: Yes normal to inspection Palpation (GI): Soft to palpation, not firm, nontender and no guarding Neuro: General: patient oriented x3 and moves all extremities Cranial nerves: Yes Equal, round and reactive pupils present Cognition (Neuro): normal cognition Motor exam (neuro): 5/5 motor strength present throughout Sensory Exam: Normal double simultaneous stimulation for sensation Coordination: [id number] test normal Extrem: General: Yes normal to inspection, Yes full ROM and Yes capillary refill normal Psych: Appearance: grossly normal Mental Status: mental status grossly normal Affect: normal affect Attitude: cooperative Thought process: Normal thought process present Thought content: Normal thought content present Insight: Good insight present (Psych) Medications Administered Discontinued Medications Generic Name Dose Route Start Last Admin Trade Name Charline PRN Reason Stop Dose Admin Cyclobenzaprine HCl 5 mg 10/20/23 11:49 10/20/23 12:50 Cyclobenzaprine Hcl 5 Mg Tablet PO 10/20/23 11:50 5 mg ONCE ONE Administration Sodium Chloride 1,000 mls @ 999 mls/hr 10/20/23 11:30 10/20/23 12:24 Ns IV 10/20/23 12:30 999 mls/hr .Q1H1M JOE Administration Ketorolac Tromethamine 15 mg 10/20/23 11:49 10/20/23 12:51 Ketorolac Tromethamine 15 Mg/Ml Vial IVPUSH 10/20/23 11:50 15 mg ONCE ONE Administration Ondansetron HCl 4 mg 10/20/23 12:25 10/20/23 12:50 Ondansetron Hcl 4 Mg/2 Ml Vial IVPUSH 10/20/23 12:26 4 mg ONCE ONE Administration Medical Decision Making Medical Decision Making [facility] Narrative: Patient is a 28 year old assigned female at with a history of asthma, ovarian cancer, and liver cancer presenting to the emergency department today with nausea, headache, and left neck pain that radiates into the chest and arm. Patient's physical exam was unremarkable. Patient's blood work was unremarkable, including a negative d dimer. Patient's urine showed no acute process. Patient's EKG was unremarkable. Patient's chest x-ray showed no acute process. I explained my physical exam findings as well as all test results to the patient. I answered all questions asked by the patient. I stressed the importance of the patient taking her medication as prescribed. I stressed the importance of the patient following up with her primary care provider. I stressed the importance of the patient returning to the emergency department immediately if her symptoms were to worsen or if she were to develop any dizziness, shortness of breath, difficulty breathing, chest pain, blurry vision, loss of vision, nausea, vomiting, abdominal pain, fever, chills, back pain, or any other complaints. Patient verbalized agreement and understanding with this treatment plan and discharge. Differential Diagnosis Differential Diagnoses: The differential diagnosis associated with the presentation includes NSTEMI STEMI Pulmonary emboli Viral illness Cervical radiculopathy COVID-19 Influenza RSV Admission/Observation Consideration of admission/observation: Escalation of care including admission/observation considered Patient would have been admitted to the hospital had her work up had any findings where hospital admission was appropriate and her clinical presentation warranted hospital admission. Lab Data MDM Lab Attestation statement: I reviewed the patient's lab results. My interpretation of these studies and their corresponding values is that they are grossly normal. 10/20/23 11:00 10/20/23 09:28 Labs: Lab Results 10/20/23 10/20/23 10/20/23 Range/Units 09:28 11:00 12:22 WBC 10.4 (4.8-10.8) X10*3/uL RBC 4.78 (4.20-5.50) X10*6/uL Hgb 12.1 (12.0-16.0) g/dl Hct 37.7 (37.0-47.0) % MCV 78.9 L (80.0-98.0) fL MCH 25.3 L (27.0-33.0) pg MCHC 32.1 (31.0-35.0) g/dl RDW 15.3 (11.0-16.0) % Plt Count 396 (160-400) X10*3/uL MPV 9.0 L (9.4-12.3) fL Immature Gran % (Auto) 0.5 H (0.0-0.4) % Neut % (Auto) 80.6 H (45-73) % Lymph % (Auto) 9.6 L (20-40) % [place] % (Auto) 8.0 (2-11) % Eos % (Auto) 1.0 (0-4) % Baso % (Auto) 0.3 (0-2) % Lymph # (Auto) 1.0 L (1.2-4.9) X10*3/uL [place] # (Auto) 0.8 (0.1-1.2) X10*3/uL Eos # (Auto) 0.1 (0.0-0.4) X10*3/uL Baso # (Auto) 0.0 (0.0-0.2) X10*3/uL Abs Immat Gran (auto) 0.05 H (0.00-0.03) X10*3/uL Absolute Neuts (auto) 8.4 H (2.0-8.3) x10*3/uL Absolute Nucleated RBC 0.000 (0.0-0.012) X10*3/uL Nucleated RBC % (auto) 0.0 (0.0-0.2) /100WBC D-Dimer High Sensitivty < 150 NG/ML Sodium 132 L (135-145) mmol/L Potassium 3.9 (3.3-5.1) mmol/L Chloride 103 (96-108) mmol/L Carbon Dioxide 19 L (22-29) mmol/L Anion Gap 14 (12-20) BUN 10 (9-16) mg/dL Creatinine 0.69 (0.5-1.4) mg/dL Estim Creat Clear Calc 172.4 Estimated GFR > 60 Random Glucose 100 (60-115) mg/dL Calcium 9.2 D (8.4-10.2) mg/dL Total Bilirubin 0.7 (0.0-1.0) mg/dL Direct Bilirubin 0.2 (0.0-0.5) mg/dL AST 18 (5-31) U/L ALT 11 (0-31) U/L Alkaline Phosphatase 51 (39-117) U/L Troponin I High Sens < 2.7 (<3.5-17.0) ng/L Total Protein 7.2 (6.5-8.0) g/dL Albumin 3.7 (3.5-5.0) g/dL Lipase 11 (8-78) U/L Beta HCG, Quant < 2 mIU/mL Urine Color Yellow Urine Appearance Clear Urine pH 6.5 (5.0-9.0) Ur Specific [place] <= 1.005 (1.005-1.025) Urine Protein Negative (Neg-Trace) mg/dL Urine Glucose (UA) Negative (Negative) mg/dL Urine Ketones Negative (Negative) mg/dL Urine Blood Negative (Negative) Urine Nitrite Negative (Negative) Ur Leukocyte Esterase Trace H (Negative) Urine RBC 0-2 (0-2) /HPF Urine WBC 0-5 (0-5) /HPF Ur Squamous Epith Cells 0-2 (0-2) /HPF Urine Bacteria None Seen (None Seen) Hyaline Casts 0-2 (0-2) /LPF Monoscreen Negative (Negative) Influenza Type A (PCR) NEGATIVE (Negative) Influenza Type B (PCR) NEGATIVE (Negative) RSV RNA Qual (PCR) NEGATIVE (Negative) SARS-CoV-2 RNA (RT-PCR) NEGATIVE (Negative) Independent Interpretation I performed an independent interpretation of an: EKG and Plain X-Ray Interpretation: My interpretation is in agreement with the radiologist's impression of this imaging study. EXAMINATION: XR CHEST CLINICAL INFORMATION: Shortness of breath COMPARISON: 07/02/2023 TECHNIQUE: 2 views of the chest were obtained. FINDINGS: Lungs clear. No pleural effusion. Heart and pulmonary vessels normal. XR/XR chest 2V IMPRESSION: No active disease. Dictated By: Hossein Patino MD Signed By: Electronically signed by Hossein Patino MD 10/20/23 1217 Vent. Rate: 096 BPM Atrial Rate: 096 BPM P-R Int: 124 ms QRS Dur: 074 ms QT Int: 334 ms P-R-T Axes: 009 032 008 degrees QTc Int: 421 ms Normal sinus rhythm Normal ECG When compared with ECG of 29-JUN-2023 12:45, No significant change was found DD/ 0855 Radiology Impression Discussion of test interpretation with radiology: I have reviewed the radiologist's reading. Chronic Conditions Patient?s care impacted by: Cancer Discharge Plan Discharge Clinical Impression: Nausea, Headache Patient Disposition: Home, Self-Care Instructions: Acute Headache (DC), Acute Nausea and Vomiting (ED) Additional Instructions: Follow up with your primary care provider. Return to the emergency department immediately if your symptoms worsen or if you develop any dizziness, shortness of breath, difficulty breathing, chest pain, blurry vision, loss of vision, nausea, vomiting, abdominal pain, fever, chills, back pain, or any other complaints. Prescriptions: New ondansetron 4 mg tablet,disintegrating 4 mg PO Q8H 3 Days Qty: 9 0RF No Action albuterol sulfate 90 mcg/actuation Hfa Aerosol Inhaler 2 puff INHALATION Q4H PRN (Reason: Shortness Of Breath) lamotrigine 25 mg tablet See Rx Instructions .ROUTE .COMPLEX 14 Days Qty: 21 0RF Rx Instructions: Take 1 tab PO daily x 7 days, then 1 tab PO twice a day prednisone 20 mg tablet 40 mg PO DAILY Qty: 10 0RF benzonatate [Tessalon Perles] 100 mg capsule 100 mg PO TID PRN (Reason: cough) Qty: 15 0RF cefuroxime axetil 500 mg tablet 500 mg PO BID Qty: 13 0RF acetaminophen 500 mg capsule 500 mg PO Q6H PRN (Reason: fever or pain) Qty: 20 0RF ibuprofen 600 mg tablet 600 mg PO Q8H PRN (Reason: fever or pain) Qty: 20 0RF cefuroxime axetil 250 mg tablet 250 mg PO BID 7 Days Qty: 14 0RF Referrals: Jaky Zamora MD [Primary Care Provider] - Stand Alone Forms: Work/School Release Print Language: Guatemalan
--- NOTE | 2023-10-20 11:41 | PC.NURSE ---
pt to xray at this time.
[2023-10-20 12:02] LABS: Alanine Aminotransferase 11 U/L (0-31); Albumin Level 3.7 g/dL (3.5-5.0); Alkaline Phosphatase 51 U/L (39-117); Aspartate Amino Transferase 18 U/L (5-31); Bilirubin Direct 0.2 mg/dL (0.0-0.5); Bilirubin Total 0.7 mg/dL (0.0-1.0); HCG Quantitative < 2 mIU/mL; Lipase 11 U/L (8-78); Total Protein 7.2 g/dL (6.5-8.0)
[2023-10-20 12:14] VITALS: BP 139/89; PULSE 86; RESP 16; TEMP 37.2; O2SAT 100
[2023-10-20] MEDS: 0.9 % Sodium Chloride 1,000 ML 999 ML IV (12:24)
--- NOTE | 2023-10-20 12:30 | PC.NURSE ---
20gIV placed in the right AC - labs obtained/sent to lab w/o difficulty.
[2023-10-20 12:32] LABS: Appearance Urine Clear; Color Urine Yellow; Glucose Urine UA Negative (Negative); Leukocyte Esterase Urine Trace (Negative); Nitrite Urine Negative (Negative); PH 6.5 (5.0-9.0); Specific Gravity - Urine <= 1.005 (1.005-1.025); UMIC TRIGGER UACC YES; Urine Blood Negative (Negative); Urine Ketones Negative (Negative); Urine Protein Negative (Neg-Trace)
[2023-10-20 12:37] LABS: D Dimer High Sensitivity < 150 NG/ML
[2023-10-20 12:40] LABS: Bacteria Urine None Seen (None Seen); Hyaline Casts Urine 0-2 /LPF (0-2); RBC Urine 0-2 /HPF (0-2); Squamous Epithelial Cell Urine 0-2 /HPF (0-2); WBC Urine 0-5 /HPF (0-5)
[2023-10-20 12:46] LABS: Monotest Negative (Negative)
[2023-10-20] MEDS: ondansetron HCL 4 MG/2 ML VIAL IVPUSH (12:50)
[2023-10-20] MEDS: Cyclobenzaprine HCl 5 MG TABLET PO (12:50)
[2023-10-20] MEDS: Ketorolac Tromethamine 15 MG/ML VIAL IVPUSH (12:51)
--- NOTE | 2023-10-20 12:55 | PC.NURSE ---
pt c/o 06/03 pain at this time. medications administered per provider order. ED provider bedside speaking w/ pot about lab results. respirations remain even and unlabored. pt aware of plan of care at this time. call marroquin placed within reach.
--- NOTE | 2023-10-20 13:19 | PC.NURSE ---
pt waiting for IV fluids to be completely infused prior to d/c - will d/c from ED when able.
== END 2023-10-20 14:28 | disposition home or self-care (01) ==
PROVIDERS: Physician Assistant Medical; Emergency Provider Emergency Medicine Emergency Medical Services; PCP Internal Medicine
DX: R11.0 Nausea (principal); R51.9 Headache, unspecified; C22.0 Liver cell carcinoma; C56.9 Malignant neoplasm of unspecified ovary; J45.909 Unspecified asthma, uncomplicated; Z20.822 Contact with and (suspected) exposure to COVID-19; Z20.828 Contact with and (suspected) exposure to other viral communicable diseases
CPT/HCPCS: 0241U; 36415; 71046; 80048; 80076; 81001; 83690; 84484; 84702; 85025; 85379; 86308; 93005; 96361; 96374; 96375; 99284; 99285; J1885; J2405

== ENCOUNTER → 2023-10-20 08:55 | Outpatient (BNV) | payer OTHER, SELFPAY | PROVIDERS: Emergency Provider Emergency Medicine Emergency Medical Services; PCP Internal Medicine; Visit Provider Internal Medicine | DX: R07.9 Chest pain, unspecified (principal) | CPT/HCPCS: 93010 ==

== ENCOUNTER 2024-02-28 08:00 | Emergency (ER) | payer OTHER, SELFPAY ==
[2024-02-28 08:20] VITALS: BP 152/94; PULSE 66; RESP 16; TEMP 37.1; O2SAT 100; BMI 50.7
[2024-02-28 09:46] LABS: MANUAL DIFF FLAG NO
[2024-02-28 09:50] LABS: Appearance Urine Clear; Basophils Percent Auto 0.4 % (0-2); Color Urine Yellow; Eosinophils Absolute Auto 0.2 X10*3/uL (0.0-0.4); Glucose Urine UA Negative (Negative); Hematocrit 37.6 % (37.0-47.0); Hemoglobin 12.2 g/dl (12.0-16.0); Imm Gran Abs Auto 0.03 X10*3/uL (0.00-0.03); Imm Gran Pct Auto 0.4 % (0.0-0.4); Leukocyte Esterase Urine Trace (Negative); Lymphocytes Absolute Auto 2.3 X10*3/uL (1.2-4.9); Lymphocytes Percent Auto 32.4 % (20-40); Mean Corpuscular HGB Conc 32.4 g/dl (31.0-35.0); Mean Corpuscular Hemoglobin 25.5 pg (27.0-33.0); Mean Corpuscular Volume 78.5 fL (80.0-98.0); Monocytes Absolute Auto 0.5 X10*3/uL (0.1-1.2); Monocytes Percent Auto 7.3 % (2-11); Neutrophils Percent Auto 56.5 % (45-73); Nitrite Urine Negative (Negative); Platelet Count 381 X10*3/uL (160-400); Red Blood Count 4.79 X10*6/uL (4.20-5.50); Red Cell Distribution Width 15.2 % (11.0-16.0); Specific Gravity - Urine 1.015 (1.005-1.025); UMIC TRIGGER UACC YES; Urine Blood Negative (Negative); Urine Ketones Negative (Negative); Urine Protein Negative (Neg-Trace)
[2024-02-28 09:52] LABS: Bacteria Urine None Seen (None Seen); Hyaline Casts Urine 0-2 /LPF (0-2); RBC Urine 0-2 /HPF (0-2); Squamous Epithelial Cell Urine 0-2 /HPF (0-2); UPreg QC Valid YES; Urine Pregnancy NEGATIVE (NEGATIVE); WBC Urine 0-5 /HPF (0-5)
[2024-02-28 10:02] LABS: Alanine Aminotransferase 15 U/L (0-31); Albumin Level 3.9 g/dL (3.5-5.0); Alkaline Phosphatase 48 U/L (39-117); Anion Gap 13 (12-20); Aspartate Amino Transferase 15 U/L (5-31); Bilirubin Total 0.5 mg/dL (0.0-1.0); Blood Urea Nitrogen 13 mg/dL (9-16); Calcium 9.9 mg/dL (8.4-10.2); Carbon Dioxide 26 mmol/L (22-29); Chloride 103 mmol/L (96-108); Creatinine Clr Calc Pharmacy 173.1; Estimated Glomerular Filt Rate > 60; Glucose Random 96 mg/dL (60-115); Sodium 138 mmol/L (135-145); Total Protein 7.3 g/dL (6.5-8.0)
[2024-02-28 15:03] VITALS: BP 150/100; PULSE 73; RESP 16; O2SAT 100
--- NOTE | 2024-02-28 15:03 | ED.GENADULT ---
HPI - General Adult General Chief complaint: Abdominal Pain Stated complaint: abd and l side pain Time Seen by Provider: 02/28/24 19:08 Source: patient and family Mode of arrival: ambulatory History of Present Illness HPI narrative: 28-year-old female who presents with intermittent epigastric discomfort not associated with fever or chills and states that she has cancer for which she is on palliative care for as she has been told that there is nothing that can be done. She denies fever chills, states that she saw her physician in [place] at [facility] approximately 2 months ago and had imaging studies at that time. She reports having seen Gyne Oncology at [facility] as well. Patient is currently asymptomatic. Related Data Home Medications ?Medication ?Instructions ?Recorded ?Confirmed albuterol sulfate 90 mcg/actuation 2 puff inhalation Q4H PRN 01/06/21 01/06/21 aerosol inhaler Shortness Of Breath Previous Rx's ?Medication ?Instructions ?Recorded lamotrigine 25 mg tablet See Rx Instructions .Route 01/16/21 .COMPLEX 14 days #21 tabs benzonatate 100 mg capsule 100 mg PO TID PRN cough #15 caps 01/19/21 (Servando Bryant) prednisone 20 mg tablet 40 mg (2 x 20 mg) PO DAILY #10 tabs 01/19/21 acetaminophen 500 mg capsule 500 mg PO Q6H PRN fever or pain 05/07/23 #20 caps cefuroxime axetil 500 mg tablet 500 mg PO BID #13 tabs 05/07/23 ibuprofen 600 mg tablet 600 mg PO Q8H PRN fever or pain 05/07/23 #20 tabs cefuroxime axetil 250 mg tablet 250 mg PO BID 7 days #14 tabs 07/03/23 ondansetron 4 mg disintegrating 4 mg PO Q8H 3 days #9 tabs 10/20/23 tablet Allergies Allergy/AdvReac Type Severity Reaction Status Date / Time latex [LATEX] Allergy Intermediate HIVES Verified 02/28/24 08:25 vancomycin [VANCOMYCIN] Allergy Intermediate HIVES Verified 02/28/24 08:25 shrimp Allergy Anaphylaxis Verified 02/28/24 08:25 lorazepam AdvReac Hallucinati Verified 02/28/24 08:25 ons Review of Systems Review of Systems: Pertinent positives and negatives as stated in HPI [facility] Past Medical History Source: nursing notes reviewed Medical History Abdominal tumor TIA (transient ischemic attack) Liver cancer Asthma Ovarian cancer Surgical History Hx of removal of ovary Social History Social History Household Members: Family Alcohol intake: never Advance Directives: No Advance Directives Information Provided: No Do you have a plan to hurt others: No Plan Physical Exam ED Vital Signs: Vital Signs - 24 hr 02/28/24 08:20 02/28/24 15:03 Temperature 98.7 F Pulse Rate 66 73 Respiratory Rate 16 16 Blood Pressure 152/94 H 150/100 H Pulse Oximetry 100 100 Oxygen Delivery Method Room Air Room Air BMI result Body Mass Index 50.7 VITAL SIGNS: Reviewed. GENERAL: Elevated BMI, Well developed, well nourished, in no acute distress. HEAD: Normocephalic/atraumatic EYES: PERRLA, EOMI EARS: Ext canals without abnormality NOSE: Nares patent bilateral OROPHARYNX: no oral lesions noted, posterior pharynx clear NECK: Supple, no adenopathy LUNGS: Normal breath sounds. No adventitious sounds or accessory muscle use. SpO2<100> CARDIOVASCULAR: Regular rate and rhythm without noted murmurs ABDOMEN: Soft, non-tender, non-distended with bowel sounds. MUSCULOSKELETAL: No tenderness, deformities, or effusions noted on gross inspection. EXTREMITIES: No cyanosis, clubbing or edema. SKIN: Inspection of the skin reveals no rashes NEUROLOGIC: Alert and oriented x 4. Strength and sensation to light touch were grossly intact x 4. PSYCH: Flat affect Course Course Course Narrative: RME performed by Miesha Etienne PA-C. Patient is a 28 year old assigned female at presenting to the emergency department with a history of asthma, liver cancer, and ovarian cancer for which she follows with oncology in [place]. Patient states that she is having abdominal pain and believes it is because her masses are growing. Detailed physical exam and review of systems are deferred to the personal injury paralegal. Labs ordered. Patient placed back in the waiting room pending room availability and results. Medical Decision Making Medical Decision Making MDM Narrative: 28-year-old female with history and clinical presentation, DDX: Pain associated with underlying cancer, I asked the patient what the plan was for any additional pain and she is unsure, she has not reached out to her oncologist in the [place] area but provides her name to me as Rowan Wilson. I also requested records from [facility] and they informed me that the last records they have on file was in May of 2023. Once again, patient is currently asymptomatic. I reviewed all investigations and hematologic indices are chronically stable without leukocytosis/anemia/thrombocytopenia. Chemistry indices are negative for VERO//electrolyte or liver enzyme derangements. Urinalysis negative for UTI/hematuria and urine is negative. I reviewed patient's gynecology oncology documentation from May of 2023 which extensively outlines patient's history since 2010 and most recently identifies that the CT scan from December 2022 has no evidence of new sites of intrathoracic metastases and that there is an unchanged 6 mm cavitary nodule in the left lower lobe with unchanged 5 x 2.6 fat/soft tissue attenuation mass with a number of multiple peritoneal omental nodules. 2.1 right lower quadrant 3.3 and 2.5. There is an unchanged right adnexal fat/soft tissue attenuation 8 x 4.8. At that time Gyne Onc felt that this was a growing teratoma syndrome and recommended referral to MD Epstein. Identified as stable disease and to continue aggressive pain management. It appears that the physician recommended consideration for surgical resection of pelvic disease strictly for pain control. Attempting to reach out to [facility] and obtain further information and direction at this time. I spoke to the [facility] oncologist who confirms that patient is on active pain/palliative services, she is no longer a candidate for further chemotherapy or surgeries, she has had a scan 1 month ago that demonstrates stable findings. She is receiving scans every 6 months. Based on history and laboratory findings I do suspect that patient's symptoms are most likely associated with her underlying gastritis but I did discuss with the patient signs and symptoms that should prompt her to return to the emergency room. Differential Diagnosis Differential Diagnoses: The differential diagnosis associated with the presentation includes Please see the discussion above Admission/Observation Consideration of admission/observation: Escalation of care including admission/observation considered Please see the discussion above Consult Healthcare Provider Management of the patient was discussed with: Slot Manager Please see the discussion above Lab Data MDM Lab Attestation statement: I reviewed the patient's lab results. Please see the discussion above 02/28/24 09:40 02/28/24 09:40 Labs: Lab Results 02/28/24 Range/Units 09:40 WBC 7.0 (4.8-10.8) X10*3/uL RBC 4.79 (4.20-5.50) X10*6/uL Hgb 12.2 (12.0-16.0) g/dl Hct 37.6 (37.0-47.0) % MCV 78.5 L (80.0-98.0) fL MCH 25.5 L (27.0-33.0) pg MCHC 32.4 (31.0-35.0) g/dl RDW 15.2 (11.0-16.0) % Plt Count 381 (160-400) X10*3/uL MPV 9.0 L (9.4-12.3) fL Immature Gran % (Auto) 0.4 (0.0-0.4) % Neut % (Auto) 56.5 (45-73) % Lymph % (Auto) 32.4 (20-40) % [place] % (Auto) 7.3 (2-11) % Eos % (Auto) 3.0 (0-4) % Baso % (Auto) 0.4 (0-2) % Lymph # (Auto) 2.3 (1.2-4.9) X10*3/uL [place] # (Auto) 0.5 (0.1-1.2) X10*3/uL Eos # (Auto) 0.2 (0.0-0.4) X10*3/uL Baso # (Auto) 0.0 (0.0-0.2) X10*3/uL Abs Immat Gran (auto) 0.03 (0.00-0.03) X10*3/uL Absolute Neuts (auto) 4.0 (2.0-8.3) x10*3/uL Absolute Nucleated RBC 0.000 (0.0-0.012) X10*3/uL Nucleated RBC % (auto) 0.0 (0.0-0.2) /100WBC Sodium 138 (135-145) mmol/L Potassium 4.0 (3.3-5.1) mmol/L Chloride 103 (96-108) mmol/L Carbon Dioxide 26 (22-29) mmol/L Anion Gap 13 (12-20) BUN 13 (9-16) mg/dL Creatinine 0.69 (0.5-1.4) mg/dL Estim Creat Clear Calc 173.1 Estimated GFR > 60 Random Glucose 96 (60-115) mg/dL Calcium 9.9 D (8.4-10.2) mg/dL Total Bilirubin 0.5 (0.0-1.0) mg/dL AST 15 (5-31) U/L ALT 15 (0-31) U/L Alkaline Phosphatase 48 (39-117) U/L Total Protein 7.3 (6.5-8.0) g/dL Albumin 3.9 (3.5-5.0) g/dL Urine Color Yellow Urine Appearance Clear Urine pH 6.0 (5.0-9.0) Ur Specific [place] 1.015 (1.005-1.025) Urine Protein Negative (Neg-Trace) mg/dL Urine Glucose (UA) Negative (Negative) mg/dL Urine Ketones Negative (Negative) mg/dL Urine Blood Negative (Negative) Urine Nitrite Negative (Negative) Ur Leukocyte Esterase Trace H (Negative) Urine RBC 0-2 (0-2) /HPF Urine WBC 0-5 (0-5) /HPF Ur Squamous Epith Cells 0-2 (0-2) /HPF Urine Bacteria None Seen (None Seen) Hyaline Casts 0-2 (0-2) /LPF Urine Test NEGATIVE (NEGATIVE) External Record Review External record reviewed: Office record, Outpatient record, Prior outpatient labs and Prior outpatient radiology Chronic Conditions Metastatic teratoma syndrome Critical Care Time Critical Care Time Critical Care Time: Yes Total Critical Care Time: 60 Attestation: I personally attest to this time spent taking care of the patient. Discharge Plan Discharge Clinical Impression: Abdominal pain Patient Disposition: Home, Self-Care Instructions: Gastritis (ED), Diet for Stomach Ulcers and Gastritis (ED), Epigastric Pain (ED) Additional Instructions: 1. Do not hesitate to return to the emergency room should you began experiencing increasing abdominal discomfort with associated nausea and vomiting as this may suggest an obstruction. Certainly return if you have any fever, chills or development of diarrhea. 2. Please follow-up with your primary care doctor regarding any issues with acid reflux. Prescriptions: No Action albuterol sulfate 90 mcg/actuation Hfa Aerosol Inhaler 2 puff INHALATION Q4H PRN (Reason: Shortness Of Breath) lamotrigine 25 mg tablet See Rx Instructions .ROUTE .COMPLEX 14 Days Qty: 21 0RF Rx Instructions: Take 1 tab PO daily x 7 days, then 1 tab PO twice a day prednisone 20 mg tablet 40 mg PO DAILY Qty: 10 0RF benzonatate [Tessalon Perles] 100 mg capsule 100 mg PO TID PRN (Reason: cough) Qty: 15 0RF cefuroxime axetil 500 mg tablet 500 mg PO BID Qty: 13 0RF acetaminophen 500 mg capsule 500 mg PO Q6H PRN (Reason: fever or pain) Qty: 20 0RF ibuprofen 600 mg tablet 600 mg PO Q8H PRN (Reason: fever or pain) Qty: 20 0RF cefuroxime axetil 250 mg tablet 250 mg PO BID 7 Days Qty: 14 0RF ondansetron 4 mg tablet,disintegrating 4 mg PO Q8H 3 Days Qty: 9 0RF Referrals: Jaky Zamora MD [Primary Care Provider] - Print Language: Surinamese
[2024-02-28 21:49] VITALS: BP 150/96; PULSE 67; RESP 16; TEMP 36.8; O2SAT 99
[2024-02-28 22:08] VITALS: BP 150/96; PULSE 67; RESP 16; TEMP 36.8; O2SAT 99
== END 2024-02-28 22:11 | disposition home or self-care (01) ==
PROVIDERS: Emergency Provider Student in an Organized Health Care Education/Training Program; PCP Internal Medicine
DX: R10.13 Epigastric pain (principal); C56.9 Malignant neoplasm of unspecified ovary; J45.909 Unspecified asthma, uncomplicated; Z79.899 Other long term (current) drug therapy
CPT/HCPCS: 36415; 80053; 81001; 81025; 85025; 99283

== ENCOUNTER 2024-06-30 19:07 | Emergency (ER) | payer OTHER, SELFPAY ==
--- NOTE | ~2024-06-30 | CT_ITS ---
EXAMINATION: CT ABDOMEN AND PELVIS WITH CONTRAST CLINICAL INFORMATION: Reason for Exam mets, has ovarian CA, obstruciton? COMPARISON: 07/03/2023 TECHNIQUE: Multidetector volumetric images were obtained from the superior aspect of the liver through the pubic symphysis following administration 100 mL of Omnipaque 350 intravenous contrast. Sagittal and coronal reformatted images were obtained on the technologist's workstation. Oral contrast: Yes This CT examination was performed using dose optimization techniques as appropriate, variously including the following: *Automated exposure control *Adjustment of mA and/or kV according to patient size (this includes techniques or standardized protocols for targeted exams where dose is matched to indication/reason for exam; i.e. extremities or head) *Use of iterative reconstruction technique DLP: 1329 mGy-cm FINDINGS: LUNG BASES: The visualized lung bases are unremarkable. LIVER, GALLBLADDER, AND BILIARY TREE: The liver is normal in size, shape, and attenuation. Stable appearance of a predominantly fat density mass with some scattered internal soft tissue and tiny calcifications in the posterior right hepatic lobe measuring up to approximately 5.3 cm in the axial plane. No biliary ductal dilatation is present. Gallbladder is grossly unremarkable. PANCREAS: Unremarkable. SPLEEN: Unremarkable. ADRENAL GLANDS: Unremarkable. KIDNEYS AND URETERS: Bilateral nephrograms are symmetric. No hydronephrosis or obstructing calculus identified. BLADDER: Nearly empty and not adequately evaluated. GASTROINTESTINAL TRACT: Oral contrast material is present in the stomach and proximal to mid small bowel. No disproportionate bowel dilation is seen to suggest obstruction. Moderate stool is present in the colon. No significant bowel wall thickening is seen. The appendix is unremarkable. No free fluid or free air is seen. ABDOMINAL WALL: No significant hernia is appreciated. LYMPH NODES: Numerous mildly prominent retroperitoneal lymph nodes are similar to prior. There are multiple scattered soft tissue nodules in the lower abdomen and pelvis. In the setting of ovarian cancer, appearance is suspicious for peritoneal carcinomatosis. Gum Machine Operator examples include an ill-defined soft tissue mass in the medial right abdomen measuring up to 3.4 cm on image 61/97 which appears slightly increased in size from prior, region of soft tissue nodules in the lateral right lower quadrant on image 54/97 which appears similar to prior, and a nearly 1 cm left lower quadrant nodule anteriorly on image 75/97 which is similar to prior. Within the pelvis there are multiple masses which appear to be of mixed fat and soft tissue attenuation, and these appear overall similar to 07/03/2023. For example, a mixed fat/soft tissue mass in the right adnexa measures approximately 8.0 x 4.3 cm on image 78/97. VASCULAR: Unremarkable. PELVIC VISCERA: Redemonstration of multiple mixed fatty and soft tissue density pelvic masses as noted above. Redemonstrated at least partially low density mass along the left aspect of the uterus measuring up to approximately 3.7 cm in the axial plane appears similar to prior. OSSEOUS STRUCTURES: Unremarkable. CT/CT abdomen pelvis w IV con IMPRESSION: 1. No evidence of bowel obstruction. 2. Overall similar appearance of multiple pelvic masses of mixed fat and soft tissue density compared to 07/03/2023. 3. 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 Overall this appears similar to slightly increased in size in some areas compared to prior. 4. Numerous mildly prominent retroperitoneal lymph nodes are redemonstrated. 5. Stable appearance of a predominantly fat density mass in the posterior right hepatic lobe. Electronically signed by: Bernardino Sosa MD 07/01/2024 01:10 AM EDT
[2024-06-30 19:45] VITALS: BP 142/90; PULSE 73; RESP 16; TEMP 36.6; O2SAT 98; BMI 48.8
--- NOTE | 2024-06-30 19:58 | ED_ITS ---
HPI - General Adult General Chief complaint: Abdominal Pain Stated complaint: abd pain, back pain, nauseau, oncologist sent her Time Seen by Provider: 06/30/24 20:49 Source: patient Limitations: no limitations History of Present Illness ED Provider: Jyoti Dozier PA-C HPI narrative: 28-year-old female with a history of bipolar, asthma, metastatic ovarian cancer currently awaiting surgery, who is not a candidate for chemotherapy or other intervention, presents with the abdominal and back pain. Patient was sent in by her oncologist because she has had subjective fevers at home. Patient states she has had associated new abdominal distention. She is often constipated, she can not recall when she had a full bowel movement, but she does indicate she is still passing flatus from below. Associated nausea vomiting, and decreased urine output. Related Data Home Medications ?Medication ?Instructions ?Recorded ?Confirmed albuterol sulfate 90 mcg/actuation 2 puff inhalation Q4H PRN 01/06/21 01/06/21 aerosol inhaler Shortness Of Breath Previous Rx's ?Medication ?Instructions ?Recorded lamotrigine 25 mg tablet See Rx Instructions .Route 01/16/21 .COMPLEX 14 days #21 tabs benzonatate 100 mg capsule 100 mg PO TID PRN cough #15 caps 01/19/21 (Tessaljax Bryant) prednisone 20 mg tablet 40 mg (2 x 20 mg) PO DAILY #10 tabs 01/19/21 acetaminophen 500 mg capsule 500 mg PO Q6H PRN fever or pain 05/07/23 #20 caps cefuroxime axetil 500 mg tablet 500 mg PO BID #13 tabs 05/07/23 ibuprofen 600 mg tablet 600 mg PO Q8H PRN fever or pain 05/07/23 #20 tabs cefuroxime axetil 250 mg tablet 250 mg PO BID 7 days #14 tabs 07/03/23 ondansetron 4 mg disintegrating 4 mg PO Q8H 3 days #9 tabs 10/20/23 tablet Allergies Allergy/AdvReac Type Severity Reaction Status Date / Time latex [LATEX] Allergy Intermediate HIVES Verified 06/30/24 19:50 vancomycin [VANCOMYCIN] Allergy Intermediate HIVES Verified 06/30/24 19:50 shrimp Allergy Anaphylaxis Verified 06/30/24 19:50 lorazepam AdvReac Hallucinati Verified 06/30/24 19:50 ons Review of Systems 2 Review of Systems: Yes all other systems are reviewed and are negative Constitutional: Constitutional: Reports fever(s) Cardiovascular: Cardiovascular: Denies chest pain and Denies dyspnea Respiratory: Respiratory: Denies dyspnea Gastrointestinal: Gastrointestinal: Reports abdominal pain, Reports constipation, Reports nausea and Reports vomiting PMFSH Past Medical History Attestation statement: The following information was validated with the patient. Medical History Abdominal tumor TIA (transient ischemic attack) Liver cancer Asthma Ovarian cancer Surgical History Hx of removal of ovary Social History Social History Household Members: Family Alcohol intake: never Advance Directives: No Advance Directives Information Provided: No Do you have a plan to hurt others: No Plan Physical Exam ED Vital Signs: Vital Signs - 24 hr 06/30/24 19:45 06/30/24 20:27 06/30/24 21:49 Temperature 98 F 99.0 F 98.4 F Pulse Rate 73 69 59 Respiratory Rate 16 16 16 Blood Pressure 142/90 H 148/85 H 134/72 Pulse Oximetry 98 99 96 Oxygen Delivery Method Room Air Room Air Room Air BMI result Body Mass Index 48.8 Const Other: Awake, well in appearance Orientation/consciousness: patient oriented x3 Resp Other: Nonlabored respiration Cardio Other: Normal peripheral perfusion GI Other: Abdomen is soft, obese, somewhat distended, mild generalized tenderness to palpation without guarding Skin Other: Warm dry no rash Neuro General: patient oriented x3, no focal motor deficits and CN's II-XI intact bilaterally Psych Other: Calm cooperative Course Course Course Narrative: RME performed by Miesha Etienne PA-C. Patient is a 28 year old assigned female at presenting to the emergency department with fevers. Patient states that she has an extensive history of ovarian cancer with mets. Patient states that her oncologist told her to come in to the hospital because she has been having fevers at home. Detailed physical exam and review of systems are deferred to the hydrogeology professor. Labs and swabs ordered. Patient placed back in the waiting room pending room availability and results. Medications Administered Discontinued Medications Generic Name Dose Route Start Last Admin Trade Name Freq PRN Reason Stop Dose Admin Hydromorphone HCl 1 mg 06/30/24 22:09 06/30/24 23:46 Hydromorphone Hcl 1 Mg/Ml Syringe IVPUSH 06/30/24 22:10 1 mg ONCE ONE Administration Protocol Sodium Chloride 1,000 mls @ 999 mls/hr 06/30/24 22:15 06/30/24 23:47 Ns IV 06/30/24 23:15 999 mls/hr .Q1H1M JOE Administration Iohexol 100 ml 07/01/24 00:28 07/01/24 00:28 Iohexol 350 Mg/Ml 100 Ml Infus..Btl IV 07/01/24 00:29 100 ml ONCE ONE Administration Ondansetron HCl 8 mg 06/30/24 22:09 06/30/24 23:46 Ondansetron Hcl 4 Mg/2 Ml Vial IVPUSH 06/30/24 22:10 8 mg ONCE ONE Administration Procedures Procedure Narrative Procedure Narrative: Ultrasound IV placement 18 gauge 1-3/[address] in the right forearm. Flushes well, adequate blood return, secured with Tegaderm Medical Decision Making Medical Decision Making MDM Narrative: 28-year-old female with a history of bipolar, asthma, metastatic ovarian cancer currently awaiting surgery, who is not a candidate for chemotherapy or other intervention, presents with the abdominal and back pain. Patient was sent in by her oncologist because she has had subjective fevers at home. Patient states she has had associated new abdominal distention. She is often constipated, she can not recall when she had a full bowel movement, but she does indicate she is still passing flatus from below. Associated nausea vomiting, and decreased urine output. Problem: Metastatic ovarian cancer, psychiatric illness History: Per patient I have considered the following differential diagnoses: Further progression of metastatic disease, bowel obstruction, sepsis Plan: Screening labs obtained from triage, we will be obtaining a CT scan, I am concerned for obstruction at this time. We will be giving IV fluid, Zofran and Dilaudid for her discomfort. I did think about sepsis given her report of subjective fevers, however she is not febrile she is not tachycardic she has been normotensive, and she has no leukocytosis. No indication for blood cultures or lactate at this time I have independently reviewed the following tests: Labs: No leukocytosis, not anemic, no electrolyte abnormality CT abdomen and pelvis: COMPARISON: 07/03/2023 TECHNIQUE: Multidetector volumetric images were obtained from the superior aspect of the liver through the pubic symphysis following administration 100 mL of Omnipaque 350 intravenous contrast. Sagittal and coronal reformatted images were obtained on the technologist's workstation. Oral contrast: Yes This CT examination was performed using dose optimization techniques as appropriate, variously including the following: *Automated exposure control *Adjustment of mA and/or kV according to patient size (this includes techniques or standardized protocols for targeted exams where dose is matched to indication/reason for exam; i.e. extremities or head) *Use of iterative reconstruction technique DLP: 1329 mGy-cm FINDINGS: LUNG BASES: The visualized lung bases are unremarkable. LIVER, GALLBLADDER, AND BILIARY TREE: The liver is normal in size, shape, and attenuation. Stable appearance of a predominantly fat density mass with some scattered internal soft tissue and tiny calcifications in the posterior right hepatic lobe measuring up to approximately 5.3 cm in the axial plane. No biliary ductal dilatation is present. Gallbladder is grossly unremarkable. PANCREAS: Unremarkable. SPLEEN: Unremarkable. ADRENAL GLANDS: Unremarkable. KIDNEYS AND URETERS: Bilateral nephrograms are symmetric. No hydronephrosis or obstructing calculus identified. BLADDER: Nearly empty and not adequately evaluated. GASTROINTESTINAL TRACT: Oral contrast material is present in the stomach and proximal to mid small bowel. No disproportionate bowel dilation is seen to suggest obstruction. Moderate stool is present in the colon. No significant bowel wall thickening is seen. The appendix is unremarkable. No free fluid or free air is seen. ABDOMINAL WALL: No significant hernia is appreciated. LYMPH NODES: Numerous mildly prominent retroperitoneal lymph nodes are similar to prior. There are multiple scattered soft tissue nodules in the lower abdomen and pelvis. In the setting of ovarian cancer, appearance is suspicious for peritoneal carcinomatosis. [employer] Water Pollution Control examples include an ill-defined soft tissue mass in the medial right abdomen measuring up to 3.4 cm on image 61/97 which appears slightly increased in size from prior, region of soft tissue nodules in the lateral right lower quadrant on image 54/97 which appears similar to prior, and a nearly 1 cm left lower quadrant nodule anteriorly on image 75/97 which is similar to prior. Within the pelvis there are multiple masses which appear to be of mixed fat and soft tissue attenuation, and these appear overall similar to 07/03/2023. For example, a mixed fat/soft tissue mass in the right adnexa measures approximately 8.0 x 4.3 cm on image 78/97. VASCULAR: Unremarkable. PELVIC VISCERA: Redemonstration of multiple mixed fatty and soft tissue density pelvic masses as noted above. Redemonstrated at least partially low density mass along the left aspect of the uterus measuring up to approximately 3.7 cm in the axial plane appears similar to prior. OSSEOUS STRUCTURES: Unremarkable. CT/CT abdomen pelvis w IV con IMPRESSION: 1. No evidence of bowel obstruction. 2. Overall similar appearance of multiple pelvic masses of mixed fat and soft tissue density compared to 07/03/2023. 3. 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 Overall this appears similar to slightly increased in size in some areas compared to prior. 4. Numerous mildly prominent retroperitoneal lymph nodes are redemonstrated. 5. Stable appearance of a predominantly fat density mass in the posterior right hepatic lobe. Electronically signed by: Bernardino Sosa MD 07/01/2024 01:10 AM EDT Lab Data 06/30/24 20:36 06/30/24 20:36 Labs: Lab Results 06/30/24 06/30/24 06/30/24 Range/Units 20:36 20:37 20:51 WBC 6.6 (4.8-10.8) X10*3/uL RBC 4.75 (4.20-5.50) X10*6/uL Hgb 12.1 (12.0-16.0) g/dl Hct 36.8 L (37.0-47.0) % MCV 77.5 L (80.0-98.0) fL MCH 25.5 L (27.0-33.0) pg MCHC 32.9 (31.0-35.0) g/dl RDW 15.8 (11.0-16.0) % Plt Count 469 H (160-400) X10*3/uL MPV 9.3 L (9.4-12.3) fL Immature Gran % (Auto) 0.3 (0.0-0.4) % Neut % (Auto) 51.1 (45-73) % Lymph % (Auto) 35.0 (20-40) % Imperial % (Auto) 10.4 (2-11) % Eos % (Auto) 2.7 (0-4) % Baso % (Auto) 0.5 (0-2) % Lymph # (Auto) 2.3 (1.2-4.9) X10*3/uL Imperial # (Auto) 0.7 (0.1-1.2) X10*3/uL Eos # (Auto) 0.2 (0.0-0.4) X10*3/uL Baso # (Auto) 0.0 (0.0-0.2) X10*3/uL Abs Immat Gran (auto) 0.02 (0.00-0.03) X10*3/uL Absolute Neuts (auto) 3.4 (2.0-8.3) x10*3/uL Absolute Nucleated RBC 0.000 (0.0-0.012) X10*3/uL Nucleated RBC % (auto) 0.0 (0.0-0.2) /100WBC ESR 16 (0-20) MM/HR Sodium 138 (135-145) mmol/L Potassium 3.5 (3.3-5.1) mmol/L Chloride 105 (96-108) mmol/L Carbon Dioxide 25 (22-29) mmol/L Anion Gap 12 (12-20) BUN 14 (9-16) mg/dL Creatinine 0.72 (0.5-1.4) mg/dL Estim Creat Clear Calc 161.8 Estimated GFR > 60 Random Glucose 97 (60-115) mg/dL Calcium 9.3 D (8.4-10.2) mg/dL Magnesium 2.3 (1.6-2.6) mg/dL Total Bilirubin 0.3 (0.0-1.0) mg/dL AST 28 (5-31) U/L ALT 40 H (0-31) U/L Alkaline Phosphatase 28 L (39-117) U/L C-Reactive Protein 1.80 H (< or = 0.50) mg/dL Total Protein 6.9 (6.5-8.0) g/dL Albumin 3.7 (3.5-5.0) g/dL Urine Color Yellow Urine Appearance Clear Urine pH 5.5 (5.0-9.0) Ur Specific Letcher >= 1.030 H (1.005-1.025) Urine Protein Trace (Neg-Trace) mg/dL Urine Glucose (UA) Negative (Negative) mg/dL Urine Ketones Trace (Negative) mg/dL Urine Blood Negative (Negative) Urine Nitrite Negative (Negative) Ur Leukocyte Esterase Small (1+) H (Negative) Urine RBC 0-2 (0-2) /HPF Urine WBC 0-5 (0-5) /HPF Ur Squamous Epith Cells 0-2 (0-2) /HPF Urine Bacteria None Seen (None Seen) Hyaline Casts 0-2 (0-2) /LPF Influenza Type A (PCR) NEGATIVE (Negative) Influenza Type B (PCR) NEGATIVE (Negative) RSV RNA Qual (PCR) NEGATIVE (Negative) SARS-CoV-2 RNA (RT-PCR) NEGATIVE (Negative) Discharge Plan Discharge Clinical Impression: Abdominal pain, Ovarian cancer Patient Disposition: Home, Self-Care Additional Instructions: The CT scan was negative for any new acute process. Your metastatic disease processes is stable. Follow up with your oncologist as instructed. There were no lab abnormalities noted today. Prescriptions: No Action albuterol sulfate 90 mcg/actuation Hfa Aerosol Inhaler 2 puff INHALATION Q4H PRN (Reason: Shortness Of Breath) lamotrigine 25 mg tablet See Rx Instructions .ROUTE .COMPLEX 14 Days Qty: 21 0RF Rx Instructions: Take 1 tab PO daily x 7 days, then 1 tab PO twice a day prednisone 20 mg tablet 40 mg PO DAILY Qty: 10 0RF benzonatate [Tessalon Perles] 100 mg capsule 100 mg PO TID PRN (Reason: cough) Qty: 15 0RF cefuroxime axetil 500 mg tablet 500 mg PO BID Qty: 13 0RF acetaminophen 500 mg capsule 500 mg PO Q6H PRN (Reason: fever or pain) Qty: 20 0RF ibuprofen 600 mg tablet 600 mg PO Q8H PRN (Reason: fever or pain) Qty: 20 0RF cefuroxime axetil 250 mg tablet 250 mg PO BID 7 Days Qty: 14 0RF ondansetron 4 mg tablet,disintegrating 4 mg PO Q8H 3 Days Qty: 9 0RF Stand Alone Forms: Work/School Release Print Language: Chadian
--- NOTE | 2024-06-30 20:21 | MHC.EDTECH ---
This tech called patient to triage area,auditor in charge brought patient to a room
[2024-06-30 20:27] VITALS: BP 148/85; PULSE 69; RESP 16; TEMP 37.2; O2SAT 99
[2024-06-30 20:41] LABS: MANUAL DIFF FLAG NO
[2024-06-30 20:43] LABS: Basophils Percent Auto 0.5 % (0-2); Eosinophils Absolute Auto 0.2 X10*3/uL (0.0-0.4); Eosinophils Percent Auto 2.7 % (0-4); Hematocrit 36.8 % (37.0-47.0); Hemoglobin 12.1 g/dl (12.0-16.0); Imm Gran Abs Auto 0.02 X10*3/uL (0.00-0.03); Imm Gran Pct Auto 0.3 % (0.0-0.4); Lymphocytes Absolute Auto 2.3 X10*3/uL (1.2-4.9); Mean Corpuscular HGB Conc 32.9 g/dl (31.0-35.0); Mean Corpuscular Hemoglobin 25.5 pg (27.0-33.0); Mean Corpuscular Volume 77.5 fL (80.0-98.0); Mean Platelet Volume 9.3 fL (9.4-12.3); Monocytes Absolute Auto 0.7 X10*3/uL (0.1-1.2); Monocytes Percent Auto 10.4 % (2-11); Neutrophils Absolute Auto 3.4 x10*3/uL (2.0-8.3); Neutrophils Percent Auto 51.1 % (45-73); Platelet Count 469 X10*3/uL (160-400); Red Blood Count 4.75 X10*6/uL (4.20-5.50); Red Cell Distribution Width 15.8 % (11.0-16.0); White Blood Count 6.6 X10*3/uL (4.8-10.8)
--- OUTSIDE RECORDS SUMMARY | 2024-06-30 20:58 | XMS_ITS | Continuity of Care Document ---
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 Date(s): 06/27/23 - 06/28/[address] [address]- Encounter Diagnosis Chest pain, exertional(Discharge Diagnosis) - 06/28/23 Discharge Disposition: Home/Self Care Attending Physician: SANTI HAMM MD Admitting Physician: SANTI HAMM MD Referring Physician: SANTI HAMM MD Allergies, Adverse Reactions, Alerts Substance Reaction Severity Status vancomycin rash Active Latex rash Active Seafood rash Active LORazepam rash Active Results Laboratory List Name Date Troponin T 06/28/23 HCG Urine Qual POC 06/28/23 Urine Dipstick POC 06/28/23 Complete Blood Count With Auto Different ial 06/28/23 Comprehensive Metabolic Panel 06/28/23 Creatine Kinase (CPK) 06/28/23 Creatine Kinase MB Fraction 06/28/23 Partial Thromboplastin Time 06/28/23 Prothrombin Time 06/28/23 Troponin T 06/28/23 Urinalysis Microscopic Exam 06/28/23 Urinalysis with Microscopic Examination if Indicated 06/28/23 Most recent to oldest [Reference Range]: 1 2 HCG By Nursing Negative (06/28/23 1:05 AM) eGFR CKD-EPI [>=90 mL/min/1.73m2] >90 mL /min/1.73m2 (06/28/23 12:00 AM) Imm Gran Abs 0 10^3/uL *NA* (06/28/23 12:00 AM) NRBC Auto Rel 0 % *NA* (06/28/23 12:00 AM) Leukocytes Urine Dipstick Negative (06/28/23 1:04 AM) Nitrite Urine Dipstick Negative (06/28/23 1:04 AM) Protein Urine Dipstick Negative (06/28/23 1:04 AM) pH Urine Dipstick 5.0 (06/28/23 1:04 AM) Blood Urine Dipstick Negative (06/28/23 1:04 AM) Ketones Urine Dipstick 1+ (06/28/23 1:04 AM) Glucose Urine Dipstick Negative (06/28/23 1:04 AM) Imm Gran Rel 0 % *NA* (06/28/23 12:00 AM) RDW-SD 44 *NA* (06/28/23 12:00 AM) RDW-CV [12-14 %] 15 % *HI* (06/28/23 12:00 AM) NRBC Auto Abs 0.00 x10(3)/mcL *NA* (06/28/23 12:00 AM) UA Appear [Clear] Clear (06/28/23 12:00 AM) UA Bacteria [None Seen /hpf] Few /hpf *ABN* (06/28/23 12:00 AM) UA Bili Negative (06/28/23 12:00 AM) UA Blood [Negative] Negative (06/28/23 12:00 AM) UA Color [Yellow] Yellow (06/28/23 12:00 AM) UA Glucose [Negative mg/dL] Negative mg/ dL (06/28/23 12:00 AM) UA Ketones TR mg/dL *NA* (06/28/23 12:00 AM) UA Leuk Est [Negative] Trace *ABN* (06/28/23 12:00 AM) UA Nitrite [Negative] Negative (06/28/23 12:00 AM) UA Protein [Negative mg/dL] Trace mg/dL (06/28/23 12:00 AM) UA RBC [0-2 /hpf] 6-10 /hpf *ABN* (06/28/23 12:00 AM) UA Squam Epith [None Seen /hpf] Rare /hp f *ABN* (06/28/23 12:00 AM) UA Urobilinogen [Normal mg/dL] 2 mg/dL *ABN* (06/28/23 12:00 AM) UA WBC [0-10 /hpf] 11-20 /hpf *ABN* (06/28/23 12:00 AM) AGAP [8.0-15.0] 12.0 (06/28/23 12:00 AM) BUN/Creat [8-27] 19 (06/28/23 12:00 AM) Globulin [1.5-4.5 g/dL] 3.0 g/dL (06/28/23 12:00 AM) A/G Ratio [1.1-2.5] 1.3 (06/28/23 12:00 AM) PT [9.1-12.0 sec] 10.5 sec (06/28/23 12:00 AM) PTT [25-35 sec] 30 sec (06/28/23 12:00 AM) Sodium Lvl [134-144 mEq/L] 141 mEq/L (06/28/23 12:00 AM) Total Protein [6.0-8.5 g/dL] 6.9 g/dL (06/28/23 12:00 AM) UA pH [5.0-9.0] 7.0 (06/28/23 12:00 AM) Albumin Lvl [3.5-5.5 g/dL] 3.9 g/dL (06/28/23 12:00 AM) Alk Phos [25-150 U/L] 55 U/L (06/28/23 12:00 AM) ALT [0-32 U/L] 13 U/L (06/28/23 12:00 AM) AST [0-40 U/L] 16 U/L (06/28/23 12:00 AM) Bili Total [0.1-1.2 mg/dL] 0.2 mg/dL (06/28/23 12:00 AM) CO2 [20-32 mEq/L] 26 mEq/L (06/28/23 12:00 AM) Glucose Level [65-99 mg/dL] 96 mg/dL (06/28/23 12:00 AM) INR [2.0-3.5] 1.0 *LOW* (06/28/23 12:00 AM) Potassium Lvl [3.6-5.6 mEq/L] 3.2 mEq/L *LOW* (06/28/23 12:00 AM) UA Spec Grav [1.003-1.030] 1.035 *HI* (06/28/23 12:00 AM) BUN [5-26 mg/dL] 14 mg/dL (06/28/23 12:00 AM) Calcium Lvl [8.3-10.0 mg/dL] 9.4 mg/dL (06/28/23 12:00 AM) Troponin-T [0.000-0.029 ng/mL] <0.030 ng /mL (06/28/23 3:32 AM) <0.030 ng/mL (06/28/23 12:00 AM) Creatinine Lvl [0.50-1.50 mg/dL] 0.74 mg /dL (06/28/23 12:00 AM) UA Mucus [None Seen /hpf] Few /hpf *ABN* (06/28/23 12:00 AM) Chloride Lvl [96-109 mEq/L] 103 mEq/L (06/28/23 12:00 AM) CK Total [24-173 U/L] 186 U/L *HI* (06/28/23 12:00 AM) CKMB [0.0-5.3 ng/mL] 1.9 ng/mL (06/28/23 12:00 AM) Osmolality Calc [275-305 mmol/kg] 292 mm ol/kg (06/28/23 12:00 AM) WBC [3.9-11.0 x10(3)/mcL] 8.7 x10(3)/mcL (06/28/23 12:00 AM) RBC [3.70-5.10 million/mcL] 4.66 million /mcL (06/28/23 12:00 AM) Hgb [11.5-12.5 g/dL] 11.6 g/dL (06/28/23 12:00 AM) Hct [34.0-44.0 %] 36.9 % (06/28/23 12:00 AM) MCV [80-100 fL] 79 fL *LOW* (06/28/23 12:00 AM) MPV [7.0-11.0 fL] 9.7 fL (06/28/23 12:00 AM) MCH [27-33 pg] 25 pg *LOW* (06/28/23 12:00 AM) MCHC [31-36 g/dL] 31 g/dL (06/28/23 12:00 AM) RDW [11.4-14.4 %] 43.9 % *HI* (06/28/23 12:00 AM) Platelet Count [150-450 x10(3)/mcL] 435 x10(3)/mcL (06/28/23 12:00 AM) Neutrophil Rel [42-76 %] 56 % (06/28/23 12:00 AM) Lymphocyte Rel [27-47 %] 33 % (06/28/23 12:00 AM) Lymphocyte Abs [1.1-5.9 x10(3)/mcL] 2.9 x10(3)/mcL (06/28/23 12:00 AM) Neutrophil Abs [1.8-7.0 x10(3)/mcL] 4.9 x10(3)/mcL (06/28/23 12:00 AM) Monocyte Rel [4-13 %] 9 % (06/28/23 12:00 AM) Monocyte Abs [0.1-0.8 x10(3)/mcL] 0.8 x1 0(3)/mcL (06/28/23 12:00 AM) Eosinophil Rel [0-7 %] 2 % (06/28/23 12:00 AM) Eosinophil Abs [0.00-0.40 x10(3)/mcL] 0. 14 x10(3)/mcL (06/28/23 12:00 AM) Basophil Rel [0-3 %] 0 % (06/28/23 12:00 AM) Basophil Abs [0.00-0.20 x10(3)/mcL] 0.02 x10(3)/mcL (06/28/23 12:00 AM) Calcium Corrctd 9 mg/dL *NA* (06/28/23 12:00 AM) Radiology Reports * Exam Date Time Procedure Performing Provider Status 06/28/23 12:30 AM XR Chest 2 Views Susie Taveras Notes: (XR Chest 2 Views) Reason For Exam: Chest Pain REPORT STUDY: RADIOGRAPH OF CHEST, 2 VIEWS INDICATION: Chest pain TECHNIQUE: PA and lateral COMPARISON: None FINDINGS: Lungs are well expanded and clear. No consolidation, pleural effusions, or pneumothorax. The cardiomediastinal silhouette is within normal limits. No acute osseous abnormality. Surrounding soft tissue is unremarkable. IMPRESSION: No acute cardiopulmonary process. Attending review by Dr. Nagy, 06/28/2023 10:46 AM. I have personally reviewed the case and agree with the reported findings. Final Report Dictated: 06/28/2023 5:32 am Dictated By: Bernadette Davis MD Electronic Signature: 06/28/2023 10:46 am Signed By: DAQUAN NAGY MD Vital Signs Most recent to oldest [Reference Range]: 1 2 3 Blood Pressure [90-140/60-90 mmHg] 153/95mmHg *HI* (06/28/23 3:06 AM) 159/96mmHg *HI* (06/28/23 1:47 AM) 161/103mmHg *HI* (06/28/23 12:58 AM) Dosing BMI 48 (06/28/23 4:22 AM) 48 (06/27/23 11:37 PM) Dosing BSA-Mosteller 2.46 m2 (06/28/23 4:22 AM) 2.46 m2 (06/27/23 11:37 PM) Dosing Weight 132 kg (06/28/23:22 AM) 132 kg (06/27/23 11:37 PM) Heart Rate [60-100 bpm] 87 bpm (06/28/23 3:06 AM) 90 bpm (06/28/23 1:47 AM) 82 bpm (06/28/23 12:58 AM) Height 165 cm (06/28/23:22 AM) 165 cm (06/27/23 11:37 PM) Mean Arterial Pressure 114 mmHg (06/28/23 3:06 AM) 117 mmHg (06/28/23 1:47 AM) 122 mmHg (06/28/23 12:58 AM) Pulse/HR Method Monitor (06/28/23 3:06 AM) Monitor (06/28/23 1:47 AM) Monitor (06/28/23 12:58 AM) Respiratory Rate [14-20 breaths/min] 16 breaths/min (06/28/23 1:47 AM) 15 breaths/min (06/28/23 12:58 AM) 18 breaths/min (06/27/23 11:37 PM) SpO2/Pulse Oximetry [85-100 %] 99 % (06/28/23 3:06 AM) 99 % (06/28/23 1:47 AM) 99 % (06/28/23 12:58 AM) Temperature Temporal [36.3-38 degC] 36.4 degC (06/27/23 11:37 PM) Social History Social History Type Response Smoking Status Never smoker entered on: 06/27/23 Sex Hospital Discharge Instructions Follow Up Care 06/27/2023 23:27:27 With:Follow up as needed Address:Unknown When:As needed Comments:Please return to the emergency department if you have any worsening or concerning symptoms. With:Follow up with your Silk Spotter Address:Unknown When:1-2 days Comments:You were seen here in the emergency department for chest pain with exertion that resolved by the time of my examination. Your vital signs (besides high blood pressure) and physical exam here were reassuring. An extensive work- up performed in the emergency department including an electrocardiogram, a chest x-ray, and blood work including??two troponins (cardiac biomarkers) was normal. You have no signs of heart attack at this time. However, as we discussed, this does not rule out any underlying heart disease. You will need to see a Silk Spotter for further work-up including the previously planned CT scan of the chest. I offered you observation in the hospital for cardiac monitoring, but you declined. While I feel that this??is reasonable, please understand that there is no guarantee that you won't have a major cardiac event and you should return immediately with any chest pain. As we discussed, you should return immediately to the emergency department with any new or worsening chest pain, jaw pain, arm pain, palpitations, syncope (passing out), trouble breathing, nausea / vomiting, or any other concerning symptoms. As a general note, it is important that you review all of the laboratory and imaging studies that were performed here??today with your primary care provider??as there are often minor abnormalities or incidental findings that may require further??outpatient work-up.??You can access your results on our online patient portal (see attached instructions). With:UNAVAILABLE PCP INFO Address:Unknown When:1-2 days EKG study * Event Display: Electrocardiogram-EKG Authored Date: XR Chest 2 Views * Contributor_system, SVH_POWERSCRIBE: PERFORM Contributor_system, SVH_POWERSCRIBE: PERFORM Bernadette Davis MD: SIGN, VERIFY DAQUAN NAGY MD: VERIFY Event Display: Report Authored Date: STUDY: RADIOGRAPH OF CHEST, 2 VIEWS INDICATION: Chest pain TECHNIQUE: PA and lateral COMPARISON: None FINDINGS: Lungs are well expanded and clear. No consolidation, pleural effusions, or pneumothorax. The cardiomediastinal silhouette is within normal limits. No acute osseous abnormality. Surrounding soft tissue is unremarkable. IMPRESSION: No acute cardiopulmonary process. Attending review by Dr. Nagy, 06/28/2023 10:46 AM. I have personally reviewed the case and agree with the reported findings. Final Report Dictated: 06/28/2023 5:32 am Dictated By: Bernadette Davsi MD Electronic Signature: 06/28/2023 10:46 am Signed By: DAQUAN NAGY MD Patient Care team information Care Team Personnel Name: PCP INFO, UNAVAILABLE Position: RO No Access Member Role: Primary Care Physician Name: Marivel Mckinney Position: ED Registration/Bed Control CPOE Member Role: ED Registration/Bed Control Name: Betty Mackey RN Position: ED RN SPC R3 Member Role: ED Nurse Name: SANTI HAMM MD Position: ED Physician R3 Member Role: Attending Physician Address: Address: [address] [place] [address]- Name: Stephanie Jerry Position: ED Patient Clinical Operations Specialist SPC R3 Member Role: ED Patient Tie Up Worker
[2024-06-30 20:59] LABS: Alanine Aminotransferase 40 U/L (0-31); Albumin Level 3.7 g/dL (3.5-5.0); Alkaline Phosphatase 28 U/L (39-117); Anion Gap 12 (12-20); Aspartate Amino Transferase 28 U/L (5-31); Bilirubin Total 0.3 mg/dL (0.0-1.0); Blood Urea Nitrogen 14 mg/dL (9-16); Calcium 9.3 mg/dL (8.4-10.2); Carbon Dioxide 25 mmol/L (22-29); Chloride 105 mmol/L (96-108); Creatinine Clr Calc Pharmacy 161.8; Estimated Glomerular Filt Rate > 60; Glucose Random 97 mg/dL (60-115); Magnesium 2.3 mg/dL (1.6-2.6); Potassium 3.5 mmol/L (3.3-5.1); Sodium 138 mmol/L (135-145); Total Protein 6.9 g/dL (6.5-8.0)
[2024-06-30 21:00] LABS: Appearance Urine Clear; Color Urine Yellow; Glucose Urine UA Negative (Negative); Leukocyte Esterase Urine Small (1+) (Negative); Nitrite Urine Negative (Negative); PH 5.5 (5.0-9.0); Specific Gravity - Urine >= 1.030 (1.005-1.025); UMIC TRIGGER UACC YES; Urine Blood Negative (Negative); Urine Ketones Trace mg/dL (Negative); Urine Protein Trace mg/dL (Neg-Trace)
[2024-06-30 21:13] LABS: Bacteria Urine None Seen (None Seen); Hyaline Casts Urine 0-2 /LPF (0-2); RBC Urine 0-2 /HPF (0-2); Squamous Epithelial Cell Urine 0-2 /HPF (0-2); UACC Culture Trigger YES; WBC Urine 0-5 /HPF (0-5)
[2024-06-30 21:18] LABS: Erythrocyte Sedimentation Rate 16 MM/HR (0-20)
[2024-06-30 21:20] LABS: Influenza A PCR NEGATIVE (Negative); Influenza B PCR NEGATIVE (Negative); Resp Syncy Virus RNA Qual PCR NEGATIVE (Negative); SARS COV2 PCR INHOUSE NEGATIVE (Negative)
[2024-06-30 21:49] VITALS: BP 134/72; PULSE 59; RESP 16; TEMP 36.9; O2SAT 96
[2024-06-30] MEDS: HYDROmorphone HCl 1 MG/ML SYRINGE IVPUSH (23:46)
[2024-06-30] MEDS: ondansetron HCL 4 MG/2 ML VIAL 8 MG IVPUSH (23:46)
[2024-06-30] MEDS: 0.9 % Sodium Chloride 1,000 ML 999 ML IV (23:47)
[2024-07-01] MEDS: iohexoL 350 MG/ML 100 ML INFUS..BTL IV (00:28)
[2024-07-01 02:32] VITALS: BP 134/72; PULSE 59; RESP 16; TEMP 36.9; O2SAT 96
== END 2024-07-01 02:33 | disposition home or self-care (01) ==
PROVIDERS: Physician Assistant Medical; Emergency Provider Internal Medicine
DX: R10.9 Unspecified abdominal pain (principal); R11.2 Nausea with vomiting, unspecified; R50.9 Fever, unspecified; Z03.818 Encounter for observation for suspected exposure to other biological agents ruled out; J45.909 Unspecified asthma, uncomplicated; C56.9 Malignant neoplasm of unspecified ovary; C22.9 Malignant neoplasm of liver, not specified as primary or secondary; F31.81 Bipolar II disorder; Z86.73 Personal history of transient ischemic attack (TIA), and cerebral infarction without residual deficits; Z79.899 Other long term (current) drug therapy
CPT/HCPCS: 0241U; 36573; 74177; 80053; 81001; 81003; 83735; 85025; 85652; 86140; 87086; 96361; 96374; 96375; 99284; J1170; J2405; Q9967

== ENCOUNTER 2024-08-30 19:54 | Emergency (ER) | payer MEDICAID, SELFPAY ==
--- NOTE | 2024-08-30 20:01 | PC.NURSE ---
Pt not present in [facility] when called per registration pt went outside with boyfriend.
== END 2024-08-30 20:38 | disposition left against medical advice (07) ==
PROVIDERS: Emergency Provider Emergency Medicine; PCP Emergency Medicine
DX: R10.9 Unspecified abdominal pain (principal)

== ENCOUNTER 2024-09-21 08:36 | Emergency (ER) | payer MEDICAID, SELFPAY ==
--- NOTE | ~2024-09-21 | CT_ITS ---
EXAMINATION: CT ABDOMEN AND PELVIS WITH CONTRAST CLINICAL INFORMATION: Severe abdominal pain. Ovarian and liver cancer. COMPARISON: Most recent CT abdomen/pelvis dated 07/01/2024. TECHNIQUE: Multidetector volumetric images were obtained from the superior aspect of the liver through the pubic symphysis following administration 85 mL of Omnipaque 350 intravenous contrast. Sagittal and coronal reformatted images were obtained on the technologist's workstation. Oral contrast: No This CT examination was performed using dose optimization techniques as appropriate, variously including the following: *Automated exposure control *Adjustment of mA and/or kV according to patient size (this includes techniques or standardized protocols for targeted exams where dose is matched to indication/reason for exam; i.e. extremities or head) *Use of iterative reconstruction technique DLP: 2021 mGy-cm FINDINGS: LUNG BASES: The visualized lung bases are unremarkable. LIVER, GALLBLADDER, AND BILIARY TREE: The liver is normal in size, shape, and attenuation. Redemonstration of a predominantly fat lesion with small central soft tissue components and calcification measuring up to 3.7 x 5.1 cm in greatest axial dimension, not significantly changed when compared to the prior examination. No new focal hepatic lesion or biliary ductal dilatation is present. The gallbladder is unremarkable with no evidence of radiopaque gallstones, gallbladder wall thickening, or obvious pericholecystic inflammatory changes. PANCREAS: Unremarkable. SPLEEN: Unremarkable. ADRENAL GLANDS: Unremarkable. KIDNEYS AND URETERS: The kidneys are normal in size, shape, and attenuation. No hydronephrosis, hydroureter, or calculi seen. No perinephric stranding. BLADDER: Unremarkable. GASTROINTESTINAL TRACT: No small or large bowel obstruction. No bowel wall thickening or inflammatory change. Unremarkable appendix. PERITONEAL CAVITY: No intra-abdominal free air or free fluid. Redemonstration of multiple peritoneal soft tissue implants throughout the abdomen and pelvis, most prominent in the right upper quadrant measuring up to 2.0 x 1.4 cm in greatest dimension, lower central abdomen measuring 2.8 cm in greatest axial dimension, as well as within the pelvis. The pelvic lesions contain mixed fat and soft tissue density with the largest on the right measuring up to 7.2 x 4.4 cm in greatest axial dimension. Overall these appear similar when compared to the CT dated 07/01/2024. No new or increasing peritoneal implant or abdominal lesion. ABDOMINAL WALL: Postsurgical change of the anterior abdominal wall. No abdominal wall hernia. LYMPH NODES: No new or increasing lymphadenopathy. VASCULAR: Unremarkable. PELVIC VISCERA: Multiple pelvic lesions, similar when compared to the prior examination. The uterus and adnexa are unchanged. OSSEOUS STRUCTURES: Unremarkable. CT/CT abdomen pelvis w IV con IMPRESSION: 1. Redemonstration of multiple peritoneal and pelvic soft tissue implants, similar when compared to the CT dated 07/01/2024. No new or increasing peritoneal implant or pelvic lesion. 2. Redemonstration of a predominantly fat-containing lesion within the right lobe of the liver, not significantly changed when compared to the prior examination. No new hepatic parenchymal lesion or biliary ductal dilatation. 3. No new intra-abdominal mass, lymphadenopathy, or ascites. 4. No bowel wall thickening or inflammatory change. No small or large bowel obstruction. Unremarkable appendix. Fleischner guidelines were followed. Electronically signed by: Jassi Armendariz MD 09/21/2024 02:09 PM [facility] [place]
--- NOTE | ~2024-09-21 | CT_ITS ---
EXAMINATION: CT ANGIOGRAM CHEST CLINICAL INFORMATION: Shortness of breath, chest pain. Ovarian and liver cancer. COMPARISON: Most recent CT abdomen/pelvis dated 07/01/2024 and chest radiograph dated 10/20/2023. CT chest dated 10/26/2020. TECHNIQUE: Multiple axial images were obtained through the chest after the administration of 85 mL of Omnipaque 350 intravenous contrast. Extensive vascular post-processing including two-dimensional and three-dimensional reformatted images were created and reviewed on an independent workstation. This CT examination was performed using dose optimization techniques as appropriate, variously including the following: *Automated exposure control *Adjustment of mA and/or kV according to patient size (this includes techniques or standardized protocols for targeted exams where dose is matched to indication/reason for exam; i.e. extremities or head) *Use of iterative reconstruction technique DLP: 2021 mGy-cm FINDINGS: QUALITY OF STUDY/CONTRAST BOLUS: Satisfactory. PULMONARY ARTERIES: No pulmonary emboli. THORACIC AORTA: No aneurysm. LUNG: No focal consolidation, nodules or masses. PLEURA: No pleural effusion or pneumothorax. MEDIASTINUM: Normal heart size. No pericardial effusion. No hilar or mediastinal lymphadenopathy. No evidence of septal bowing or right heart strain. CORONARY ARTERY CALCIFICATION: None visualized on this study. CHEST WALL/AXILLA: No axillary or internal mammary lymphadenopathy. OSSEOUS STRUCTURES: No acute or suspicious osseous abnormality. UPPER ABDOMEN: Partially visualized right hepatic fat density lesion, better evaluated on the concurrent CT abdomen/pelvis. Otherwise unremarkable. No reflux of contrast into the hepatic veins to suggest elevated right heart pressures. CT/CT angio chest PE protocol IMPRESSION: 1. No CT angiographic evidence of acute pulmonary embolism. 2. No pulmonary nodule, mass, or airspace consolidation. 3. Partially visualized right hepatic fat density lesion, better evaluated on the concurrent CT abdomen/pelvis. VTE: Negative. Fleischner guidelines were followed. Electronically signed by: Jassi Armendariz MD 09/21/2024 01:31 PM [facility]
--- NOTE | ~2024-09-21 | CT_ITS ---
EXAMINATION: CT HEAD WITHOUT CONTRAST CLINICAL INFORMATION: Severe headache. COMPARISON: None available. TECHNIQUE: Contiguous axial imaging was performed from the skull base to vertex without intravenous administration of contrast. This CT examination was performed using dose optimization techniques as appropriate, variously including the following: *Automated exposure control *Adjustment of mA and/or kV according to patient size (this includes techniques or standardized protocols for targeted exams where dose is matched to indication/reason for exam; i.e. extremities or head) *Use of iterative reconstruction technique DLP: 717.75 mGy-cm FINDINGS: No acute intracranial hemorrhage. No mass effect or midline shift. No parenchymal lesion. The gross-white differentiation is maintained. No extra-axial fluid collection. The ventricles and sulci are unremarkable. The basal cisterns are patent. The calvarium is intact. The visualized paranasal sinuses and mastoid air cells are clear. CT/CT head/brain wo IV con IMPRESSION: No acute intracranial hemorrhage or mass effect. Electronically signed by: Jassi Armendariz MD 09/21/2024 01:23 PM [facility] [place]
[2024-09-21 08:39] VITALS: BP 164/107; PULSE 80; RESP 18; TEMP 36.8; O2SAT 98; BMI 42.9
[2024-09-21 09:04] LABS: MANUAL DIFF FLAG NO
--- NOTE | 2024-09-21 09:19 | ED_ITS ---
HPI - General Adult General Chief complaint: General Medical Stated complaint: Abd pain/Headahce Time Seen by Provider: 09/21/24 09:10 Source: patient and family Mode of arrival: ambulatory Limitations: no limitations History of Present Illness ED Provider: LOWELL West HPI narrative: This is a 29-year-old female history of metastatic ovarian cancer with metastasis to the liver, asthma, bipolar disorder, TIA presenting to the emergency department with multiple complaints. She reports she has been having a severe headache localized to the top of the head with photophobia ongoing for the past 2 days not improving despite oral meds. She also reports she is having abdominal pain in the epigastric and right upper quadrant region, vomiting, nausea ongoing for the past few weeks not improving. She is also reporting of substernal nonradiating chest pain with associated shortness of breath and intermittent dry cough. She denies diarrhea, fevers, chills, dizziness, weakness, recent falls or trauma. Related Data Home Medications ?Medication ?Instructions ?Recorded ?Confirmed albuterol sulfate 90 mcg/actuation 2 puff inhalation Q4H PRN 01/06/21 01/06/21 aerosol inhaler Shortness Of Breath Previous Rx's ?Medication ?Instructions ?Recorded lamotrigine 25 mg tablet See Rx Instructions .Route 01/16/21 .COMPLEX 14 days #21 tabs benzonatate 100 mg capsule 100 mg PO TID PRN cough #15 caps 01/19/21 (Servando Bryant) prednisone 20 mg tablet 40 mg (2 x 20 mg) PO DAILY #10 tabs 01/19/21 acetaminophen 500 mg capsule 500 mg PO Q6H PRN fever or pain 05/07/23 #20 caps cefuroxime axetil 500 mg tablet 500 mg PO BID #13 tabs 05/07/23 ibuprofen 600 mg tablet 600 mg PO Q8H PRN fever or pain 05/07/23 #20 tabs cefuroxime axetil 250 mg tablet 250 mg PO BID 7 days #14 tabs 07/03/23 ondansetron 4 mg disintegrating 4 mg PO Q8H 3 days #9 tabs 10/20/23 tablet Allergies Allergy/AdvReac Type Severity Reaction Status Date / Time latex [LATEX] Allergy Intermediate HIVES Verified 09/21/24 08:39 vancomycin [VANCOMYCIN] Allergy Intermediate HIVES Verified 09/21/24 08:39 shrimp Allergy Anaphylaxis Verified 09/21/24 08:39 lorazepam AdvReac Hallucinati Verified 09/21/24 08:39 ons Review of Systems 2 Review of Systems: Yes all other systems are reviewed and are negative [facility] Past Medical History Attestation statement: The following information was validated with the patient. Source: old records reviewed and nursing notes reviewed Medical History Abdominal tumor TIA (transient ischemic attack) Liver cancer Asthma Ovarian cancer Surgical History Hx of removal of ovary Social History Social History Household Members: Family Alcohol intake: never Advance Directives: No Advance Directives Information Provided: Yes Do you have a plan to hurt others: No Plan Physical Exam ED Vital Signs: Vital Signs - 24 hr 09/21/24 08:39 09/21/24 10:11 09/21/24 12:01 Temperature 98.3 F 97.9 F Pulse Rate 80 75 Respiratory Rate 18 16 16 Blood Pressure 164/107 H 144/64 H Pulse Oximetry 98 98 Oxygen Delivery Method Room Air Room Air BMI result Body Mass Index 42.9 vss Appearance: Alert.? Oriented X3.? No acute distress.? Head: Normocephalic, atraumatic, no step-offs or deformities Eyes: Pupils equal, round and reactive to light.? Neck: Normal inspection.? Neck supple.? CVS: Normal heart rate and rhythm.? Pulses normal.? Respiratory: No respiratory distress.? Breath sounds normal.? Abdomen: Soft and diffuse discomfort.? Skin: Skin warm and dry.? Normal skin color.? Normal skin turgor.? Extremities: No lower extremity edema.? No calf ttp. 5/5 strength to bilateral upper and lower extremities Neuro: Oriented X 3.? No motor deficit.? No sensory deficit. CN 2-12 intact Course Reevaluation(s) Reevaluation #1: Patient's CBC unremarkable. Chemistry with slightly low potassium likely secondary to GI losses. Transaminases elevated in nearly a 2-1 fashion, patient not an alcoholic. Lipase normal. Beta hCG negative. Coags pending. CT head, chest, abdomen pelvis pending. Will give Dilaudid, Reglan and Benadryl. Time: 09:48 Reevaluation #2: Scans pending. SARS pending, UA Time: 10:57 Reevaluation #3: CT head with no acute intracranial hemorrhage or mass effect. CT angio chest no evidence of PE. No pulmonary nodules, mass or airspace consolidation. Partially visualized hepatic right fat density lesion better visualized on concurrent CT abdomen and pelvis, VT negative. CT abdomen and pelvis with no new intra-abdominal mass, lymphadenopathy or ascites. No bowel wall thickening or inflammatory changes. No small or large bowel obstructions. Redemonstration of predominantly fat containing lesion within the right lobe of the liver not significantly changed. Redemonstration of multiple peritoneal and pelvic soft tissue implants similar when compared to previous CT. No new or increasing peritoneal implant or pelvic lesions. Time: 14:21 Medications Administered Discontinued Medications Generic Name Dose Route Start Last Admin Trade Name Freq PRN Reason Stop Dose Admin Diphenhydramine HCl 25 mg 09/21/24 09:40 09/21/24 10:12 Diphenhydramine Hcl 50 Mg/Ml Vial IVPUSH 09/21/24 09:41 25 mg ONCE ONE Administration Hydromorphone HCl 1 mg 09/21/24 09:40 09/21/24 10:11 Hydromorphone Hcl 1 Mg/Ml Syringe IVPUSH 09/21/24 09:41 1 mg ONCE ONE Administration Protocol Iohexol 85 ml 09/21/24 12:38 09/21/24 12:39 Iohexol 350 Mg/Ml 100 Ml Infus..Btl IV 09/21/24 12:39 85 ml ONCE ONE Administration Metoclopramide HCl 10 mg 09/21/24 09:40 09/21/24 10:12 Metoclopramide Hcl 10 Mg/2 Ml Vial IVPUSH 09/21/24 09:41 10 mg ONCE ONE Administration Ondansetron HCl 4 mg 09/21/24 13:43 09/21/24 14:11 Ondansetron Hcl 4 Mg/2 Ml Vial IVPUSH 09/21/24 13:44 4 mg ONCE ONE Administration Oxycodone HCl 15 mg 09/21/24 13:39 09/21/24 14:09 Oxycodone Hcl Immed Release 15 Mg Tablet PO 09/21/24 13:40 15 mg ONCE ONE Administration Potassium Chloride 20 meq 09/21/24 10:57 09/21/24 12:00 Potassium Chloride Packet 20 Meq Packet PO 09/21/24 10:58 20 meq ONCE ONE Administration Medical Decision Making Medical Decision Making [facility] Narrative: 29-year-old female presents with headache, chest pain, shortness of breath, abdominal pain, nausea, ongoing for awhile. PE w/ diffuse tender abdomen and non focal neuro exam. Cerebellar exam intacts also Hx and PE concerning for viral illness w/ migrane. Will rule out further mets, metabolic deragments, PE due to hx of malignancy. Unlikely acute respiratory distress, ACS, meningitis, encephalitis, acute abdomen, appendicitis, cholecystitis, pancreatitis, ovarian torsion, ectopic . Plan labs, imaging Differential Diagnosis Differential Diagnoses: The differential diagnosis associated with the presentation includes ( Hx and PE concerning for viral illness w/ migrane. Will rule out further mets, metabolic deragments, PE due to hx of malignancy. Unlikely acute respiratory distress, ACS, meningitis, encephalitis, acute abdomen, appendicitis, cholecystitis, pancreatitis, ovarian torsion, ectopic .) Admission/Observation Consideration of admission/observation: Escalation of care including admission/observation considered Lab Data [facility] Lab Attestation statement: I reviewed the patient's lab results. 09/21/24 08:53 09/21/24 08:53 Labs: Lab Results 09/21/24 09/21/24 Range/Units 08:53 10:11 WBC 6.5 (4.8-10.8) X10*3/uL RBC 5.37 (4.20-5.50) X10*6/uL Hgb 14.0 (12.0-16.0) g/dl Hct 43.5 (37.0-47.0) % MCV 81.0 (80.0-98.0) fL MCH 26.1 L (27.0-33.0) pg MCHC 32.2 (31.0-35.0) g/dl RDW 15.2 (11.0-16.0) % Plt Count 398 (160-400) X10*3/uL MPV 9.3 L (9.4-12.3) fL Immature Gran % (Auto) 0.5 H (0.0-0.4) % Neut % (Auto) 58.6 (45-73) % Lymph % (Auto) 31.2 (20-40) % [place] % (Auto) 7.8 (2-11) % Eos % (Auto) 1.4 (0-4) % Baso % (Auto) 0.5 (0-2) % Lymph # (Auto) 2.0 (1.2-4.9) X10*3/uL [place] # (Auto) 0.5 (0.1-1.2) X10*3/uL Eos # (Auto) 0.1 (0.0-0.4) X10*3/uL Baso # (Auto) 0.0 (0.0-0.2) X10*3/uL Abs Immat Gran (auto) 0.03 (0.00-0.03) X10*3/uL Absolute Neuts (auto) 3.8 (2.0-8.3) x10*3/uL Absolute Nucleated RBC 0.000 (0.0-0.012) X10*3/uL Nucleated RBC % (auto) 0.0 (0.0-0.2) /100WBC PT 12.8 H (10.9-12.4) SEC INR 1.1 (0.9-1.1) Sodium 140 (135-145) mmol/L Potassium 3.2 L (3.3-5.1) mmol/L Chloride 103 (96-108) mmol/L Carbon Dioxide 25 (22-29) mmol/L Anion Gap 15 (12-20) BUN 6 L (9-16) mg/dL Creatinine 0.77 (0.5-1.4) mg/dL Estim Creat Clear Calc 139.1 Estimated GFR > 60 Random Glucose 96 (60-115) mg/dL Calcium 8.9 (8.4-10.2) mg/dL Total Bilirubin 0.7 (0.0-1.0) mg/dL AST 74 H (5-31) U/L ALT 126 H (0-31) U/L Alkaline Phosphatase 36 L (39-117) U/L Troponin I High Sens < 2.7 (<3.5-17.0) ng/L Total Protein 7.4 (6.5-8.0) g/dL Albumin 4.0 (3.5-5.0) g/dL Lipase 12 (8-78) U/L Beta HCG, Quant < 2 mIU/mL Independent Interpretation I performed an independent interpretation of an: CT Scan (CT/CT abdomen pelvis w IV con IMPRESSION: 1. Redemonstration of multiple peritoneal and pelvic soft tissue implants, similar when compared to the CT dated 07/01/2024. No new or increasing peritoneal implant or pelvic lesion. 2. Redemonstration of a predominantly fat-containing lesion within the) Radiology Impression Discussion of test interpretation with radiology: I have reviewed the radiologist's reading. Independent Historian Clinical information obtained from an independent historian. History obtained from or confirmed by: Other (family ) External Record Review External record reviewed: Office record, Outpatient record and Prior outpatient labs Chronic Conditions Patient?s care impacted by: Other ([facility] ) Critical Care Time Critical Care Time Critical Care Time: Yes Total Critical Care Time: 35 Attestation: I attest to this time spent taking care of the patient, obtaining history, physical, reviewing labs, imaging, treatment of patients condition +/- specialist/hospitalist consult Discharge Plan Discharge Clinical Impression: Headache, Abdominal pain, Nausea & vomiting Patient Disposition: Home, Self-Care Instructions: Abdominal Pain (ED), Acute Headache (DC), Acute Nausea and Vomiting (ED) Additional Instructions: Take your medications as prescribed. If you were prescribed antibiotics today, it is important that you take your medication to their entirety, do not skip any doses, do not finish them early. Follow-up with your primary care provider this week. Return to the emergency department with new or worsening symptoms. Such as fevers, chills, chest pain, shortness of breath, nausea, vomiting, dizziness, headache, vision changes, lethargy In case of emergency call 911 CT/CT abdomen pelvis w IV con IMPRESSION: 1. Redemonstration of multiple peritoneal and pelvic soft tissue implants, similar when compared to the CT dated 07/01/2024. No new or increasing peritoneal implant or pelvic lesion. 2. Redemonstration of a predominantly fat-containing lesion within the right lobe of the liver, not significantly changed when compared to the prior examination. No new hepatic parenchymal lesion or biliary ductal dilatation. 3. No new intra-abdominal mass, lymphadenopathy, or ascites. 4. No bowel wall thickening or inflammatory change. No small or large bowel obstruction. Unremarkable appendix. CT/CT angio chest PE protocol IMPRESSION: 1. No CT angiographic evidence of acute pulmonary embolism. 2. No pulmonary nodule, mass, or airspace consolidation. 3. Partially visualized right hepatic fat density lesion, better evaluated on the concurrent CT abdomen/pelvis. VTE: Negative. Fleischner guidelines were followed. CT/CT head/brain wo IV con IMPRESSION: No acute intracranial hemorrhage or mass effect. Prescriptions: No Action albuterol sulfate 90 mcg/actuation Hfa Aerosol Inhaler 2 puff INHALATION Q4H PRN (Reason: Shortness Of Breath) lamotrigine 25 mg tablet See Rx Instructions .ROUTE .COMPLEX 14 Days Qty: 21 0RF Rx Instructions: Take 1 tab PO daily x 7 days, then 1 tab PO twice a day prednisone 20 mg tablet 40 mg PO DAILY Qty: 10 0RF benzonatate [Tessalon Perles] 100 mg capsule 100 mg PO TID PRN (Reason: cough) Qty: 15 0RF cefuroxime axetil 500 mg tablet 500 mg PO BID Qty: 13 0RF acetaminophen 500 mg capsule 500 mg PO Q6H PRN (Reason: fever or pain) Qty: 20 0RF ibuprofen 600 mg tablet 600 mg PO Q8H PRN (Reason: fever or pain) Qty: 20 0RF cefuroxime axetil 250 mg tablet 250 mg PO BID 7 Days Qty: 14 0RF ondansetron 4 mg tablet,disintegrating 4 mg PO Q8H 3 Days Qty: 9 0RF Referrals: Jaky Zamora MD [Primary Care Provider] - 2 days Stand Alone Forms: Work/School Release Print Language: Guamanian
[2024-09-21 09:25] LABS: Anion Gap 15 (12-20)
[2024-09-21 09:26] LABS: Alanine Aminotransferase 126 U/L (0-31); Alkaline Phosphatase 36 U/L (39-117); Aspartate Amino Transferase 74 U/L (5-31); Bilirubin Total 0.7 mg/dL (0.0-1.0); Blood Urea Nitrogen 6 mg/dL (9-16); Calcium 8.9 mg/dL (8.4-10.2); Carbon Dioxide 25 mmol/L (22-29); Chloride 103 mmol/L (96-108); Creatinine Clr Calc Pharmacy 139.1; Estimated Glomerular Filt Rate > 60; Glucose Random 96 mg/dL (60-115); Lipase 12 U/L (8-78); Potassium 3.2 mmol/L (3.3-5.1); Sodium 140 mmol/L (135-145); Total Protein 7.4 g/dL (6.5-8.0)
[2024-09-21 09:33] LABS: HCG Quantitative < 2 mIU/mL
[2024-09-21 09:39] LABS: Basophils Percent Auto 0.5 % (0-2); Eosinophils Absolute Auto 0.1 X10*3/uL (0.0-0.4); Eosinophils Percent Auto 1.4 % (0-4); Hematocrit 43.5 % (37.0-47.0); Imm Gran Abs Auto 0.03 X10*3/uL (0.00-0.03); Imm Gran Pct Auto 0.5 % (0.0-0.4); Lymphocytes Percent Auto 31.2 % (20-40); Mean Corpuscular HGB Conc 32.2 g/dl (31.0-35.0); Mean Corpuscular Hemoglobin 26.1 pg (27.0-33.0); Mean Platelet Volume 9.3 fL (9.4-12.3); Monocytes Absolute Auto 0.5 X10*3/uL (0.1-1.2); Monocytes Percent Auto 7.8 % (2-11); Neutrophils Absolute Auto 3.8 x10*3/uL (2.0-8.3); Neutrophils Percent Auto 58.6 % (45-73); Platelet Count 398 X10*3/uL (160-400); Red Blood Count 5.37 X10*6/uL (4.20-5.50); Red Cell Distribution Width 15.2 % (11.0-16.0); White Blood Count 6.5 X10*3/uL (4.8-10.8)
--- NOTE | 2024-09-21 09:40 | ECG_ITS ---
Test Reason : pain Blood Pressure : / mmHG Vent. Rate : 088 BPM Atrial Rate : 088 BPM P-R Int : 160 ms QRS Dur : 078 ms QT Int : 376 ms P-R-T Axes : 043 028 062 degrees QTc Int : 454 ms Normal sinus rhythm Nonspecific ST and T wave abnormality Abnormal ECG When compared with ECG of 20-OCT-2023 08:55, T wave inversion no longer evident in Inferior leads Referred By: Estefany West Electronically Signed By:SONIA FERNANDEZ
[2024-09-21 10:11] VITALS: RESP 16
[2024-09-21] MEDS: HYDROmorphone HCl 1 MG/ML SYRINGE IVPUSH (10:11)
[2024-09-21] MEDS: diphenhydrAMINE HCL 50 MG/ML VIAL 25 MG IVPUSH (10:12)
[2024-09-21] MEDS: Metoclopramide HCl 10 MG/2 ML VIAL IVPUSH (10:12)
[2024-09-21 10:22] LABS: INTERNATIONAL NORM RATIO 1.1 (0.9-1.1); Prothrombin Time 12.8 SEC (10.9-12.4)
[2024-09-21 11:00] LABS: Troponin-I High Sensitivity < 2.7 ng/L (<3.5-17.0)
[2024-09-21] MEDS: Potassium Chloride Packet 20 MEQ PACKET PO (12:00)
[2024-09-21 12:01] VITALS: BP 144/64; PULSE 75; RESP 16; TEMP 36.6; O2SAT 98
[2024-09-21] MEDS: iohexoL 350 MG/ML 100 ML INFUS..BTL 85 ML IV (12:39)
[2024-09-21] MEDS: oxyCODONE HCl Immed Release 15 MG TABLET PO (14:09)
[2024-09-21] MEDS: ondansetron HCL 4 MG/2 ML VIAL IVPUSH ×2 (14:11→14:21)
[2024-09-21 14:19] LABS: Appearance Urine Clear; Color Urine Yellow; Glucose Urine UA Negative (Negative); Leukocyte Esterase Urine Moderate (2+) (Negative); Nitrite Urine Negative (Negative); Specific Gravity - Urine >= 1.030 (1.005-1.025); UMIC TRIGGER UACC YES; Urine Blood Moderate (2+) (Negative); Urine Ketones Trace mg/dL (Negative); Urine Protein Negative (Neg-Trace)
[2024-09-21 14:34] VITALS: BP 136/86; PULSE 89; RESP 18; TEMP 36.7; O2SAT 98
[2024-09-21 14:37] LABS: Bacteria Urine None Seen (None Seen); Hyaline Casts Urine 0-2 /LPF (0-2); RBC Urine 0-2 /HPF (0-2); UACC Culture Trigger YES
[2024-09-21 15:01] VITALS: BP 136/86; PULSE 89; RESP 18; TEMP 36.7; O2SAT 98
[2024-09-21 15:12] LABS: Influenza A PCR NEGATIVE (Negative); Influenza B PCR NEGATIVE (Negative); Resp Syncy Virus RNA Qual PCR NEGATIVE (Negative); SARS COV2 PCR INHOUSE NEGATIVE (Negative)
== END 2024-09-21 15:10 | disposition home or self-care (01) ==
PROVIDERS: Physician Assistant; Emergency Provider Emergency Medicine Emergency Medical Services; PCP Internal Medicine
DX: R51.9 Headache, unspecified (principal); R10.10 Upper abdominal pain, unspecified; R11.2 Nausea with vomiting, unspecified; R06.02 Shortness of breath; Z03.818 Encounter for observation for suspected exposure to other biological agents ruled out; C56.9 Malignant neoplasm of unspecified ovary; C78.7 Secondary malignant neoplasm of liver and intrahepatic bile duct; J45.909 Unspecified asthma, uncomplicated; Z86.73 Personal history of transient ischemic attack (TIA), and cerebral infarction without residual deficits
CPT/HCPCS: 0241U; 36415; 70450; 71275; 74177; 80053; 81001; 83690; 84484; 84702; 85025; 85610; 87086; 93005; 96374; 96375; 96376; 99284; J1171; J1200; J2405; J2765; Q9967

== ENCOUNTER → 2024-09-21 09:40 | Outpatient (BNV) | payer MEDICAID, SELFPAY | PROVIDERS: Emergency Provider Emergency Medicine Emergency Medical Services; PCP Internal Medicine; Visit Provider Internal Medicine | DX: R94.31 Abnormal electrocardiogram [ECG] [EKG] (principal) | CPT/HCPCS: 93010 ==